=== PATIENT | male | born 1965 | race American Indian/Alaskan Native ===

== ENCOUNTER 2017-01-10 19:47 | Inpatient (IN) | payer MEDICARE, OTHER ==
[2017-01-10 19:47] VITALS: BMI 22.8
[2017-01-10] MEDS ORDERED: Piperacill/Tazo 3.375gm in Dex 3.375 GM/50 ML BAG IVPB STA (19:56)
--- NOTE | 2017-01-10 20:04 | C.PDOC ---
History Of Present Illness 51 year old male with a Hx of end stage renal disease for which he is on hemodialysis for, and HTN brought to the ER via ALS for a complaint of lethargy and confusion. As per brother at bedside, patient sounded confused on the phone earlier today and states he was found in his apartment confused. Patient is febrile and tachypneic in the the ER; patient had hemodialysis yesterday as per brother. Limited Hx is provided, however, patient has not verbalized any physical complaints at this time. Time Seen by Provider: 01/10/17 19:49 Chief Complaint (Nursing): Altered Mental Status History Per: Patient History/Exam Limitations: None Onset/Duration Of Symptoms: Hrs Onset Of Symptoms: Cannot Confirm Onset Current Symptoms Are (Timing): Still Present Exacerbating Factor(s): Unknown Use Of Anticoag/Antiplatelets: No Speech Is: Normal Recent travel outside of the [place]: No Past Medical History Reviewed: Historical Data, Nursing Documentation, Vital Signs Vital Signs: Last Vital Signs Temp 101.6 F H 01/10/17 19:52 Pulse 129 H 01/10/17 19:52 Resp 60 H 01/10/17 19:52 BP 141/84 01/10/17 19:52 Pulse Ox 78 L 01/10/17 22:57 - Medical History PMH: Anemia, Arthritis, Asthma, COPD, Diabetes, Fractures (RIB, LEG, FOOT), HTN , Hypothyroidism, Pneumonia, End Stage Renal Disease (on dialysis M/W/F.), Chronic Kidney Disease - [facility] Procedures ASSISTANCE WITH RESPIRATORY VENTILATION, >96 HRS, CPAP (08/15/15) ENDOSC POLYPECTOMY OF LG INTEST (02/03/13) MEASURE OF CARDIAC SAMPL & PRESSURE, R HEART, PERC APPROACH (08/15/15) PLAIN RADIOGRAPHY OF LEFT HEART USING OTHER CONTRAST (08/15/15) PLAIN RADIOGRAPHY OF MULT COR ART USING OTH CONTRAST (08/15/15) Family History: States: Unknown Family Hx - Social History Hx Tobacco Use: No Hx Alcohol Use: No Hx Substance Use: No - Immunization History Hx Tetanus Toxoid Vaccination: No Hx Influenza Vaccination: Yes (12/15/14) Hx Pneumococcal Vaccination: Yes (12/15/14) Review Of Systems Except As Marked, All Systems Reviewed And Found Negative. Constitutional: Positive for: Fever Cardiovascular: Negative for: Chest Pain Respiratory: Positive for: Other (Tachypneic). Negative for: Cough, Shortness of Breath Gastrointestinal: Negative for: Nausea, Vomiting, Abdominal Pain Genitourinary: Negative for: Dysuria, Hematuria Neurological: Positive for: Confusion Physical Exam - Physical Exam Appears: Non-toxic Skin: Normal Color, Warm, Dry Head: Atraumatic, Normacephalic Eye(s): bilateral: Normal Inspection, PERRL, EOMI Oral Mucosa: Moist Neck: Normal, Supple Chest: Symmetrical, No Tenderness Cardiovascular: Rhythm Regular, No Murmur Respiratory: No Rales, No Rhonchi, No Wheezing, Other (Bilateral mild course breath sounds) Gastrointestinal/Abdominal: Soft, No Tenderness Neurological/Psych: Other (Oriented x2) ED Course And Treatment - Laboratory Results Result Diagrams: 01/10/17 20:13 01/10/17 20:13 ECG: Interpreted By Me, Viewed By Me ECG Rhythm: Sinus Tachycardia Interpretation Of EC O2 Sat by Pulse Oximetry: 78 Critical Care Time - Critical Care Note Total Time (in mins): 45 Documented critical care: time excludes all time spent performing seperately billable procedures. Medical Decision Making Medical Decision Making: r/o sepsis/pna/intrcranial pathology- labs imaging pending. pt tachpneia, with increased wob on arrival. placed on bipap Plan: * Blood work * EKG * CXR * Urinalysis * Piperacill * Vancocin 1100: pt seen by icu. accepted to icu. cxr shows b/l infiltrates. (+)trop, no chest pain, suspect type 2. dr carranza accepts Disposition - Disposition Disposition: HOSPITALIZED Disposition Time: 23:03 Condition: CRITICAL - Clinical Impression Clinical Impression: NSTEMI (non-ST elevated myocardial infarction), Sepsis, Pneumonia - Scribe Statement The provider has reviewed the documentation as recorded by the Scribe Donte Lang All medical record entries made by the Scribe were at my direction and personally dictated by me. I have reviewed the chart and agree that the record accurately reflects my personal performance of the history, physical exam, medical decision making, and the department course for this patient. I have also personally directed, reviewed, and agree with the discharge instructions and disposition. Decision To Admit - . Bed Request Type: ICU Admitting Physician: Jim Carranza Patient Diagnosis: NSTEMI (non-ST elevated myocardial infarction), Sepsis, Pneumonia
[2017-01-10 20:19] LABS: BASO # 0.1 K/uL (0.0-0.2); BASO % 0.6 % (0.0-2.0); EOS % 0.1 % (0.0-4.0); HEMATOCRIT 27.5 % (35.0-51.0); LYMPH # 0.7 K/uL (1.0-4.3); LYMPH % 7.1 % (20.0-40.0); MEAN CELL VOLUME 84.8 fL (80.0-94.0); MEAN CORPUSCULAR HEMOGLOBIN 28.4 pg (27.0-31.0); MEAN CORPUSCULAR HGB CONC 33.5 g/dL (33.0-37.0); MEAN PLATELET VOLUME 6.6 fL (7.2-11.7); MONO # 0.9 K/uL (0.0-0.8); MONO % 9.4 % (0.0-10.0); PLATELET COUNT 176 K/uL (130-400); RED CELL DISTRIBUTION WIDTH 16.2 % (11.5-14.5); WHITE BLOOD COUNT 9.3 K/uL (4.8-10.8)
[2017-01-10 20:28] LABS: INR 1.4
[2017-01-10 20:29] LABS: POTASSIUM 4.8 mmol/L (3.6-5.2)
[2017-01-10 20:30] LABS: VENOUS BLOOD GAS BASE EXCESS 6.2 mmol/L (0.0-2.0); VENOUS BLOOD GAS PCO2 42 mmHg (40-60); VENOUS BLOOD PH 7.47 (7.32-7.43)
[2017-01-10 20:31] LABS: ALB/GLOB RATIO 1.3 (1.0-2.1); BILIRUBIN,TOTAL 1.2 mg/dL (0.2-1.3); TOTAL PROTEIN 7.4 g/dL (6.3-8.3)
[2017-01-10] MEDS ORDERED: Vancomycin 1 GM 1 GM/250 ML BAG IVPB ONE (20:32)
[2017-01-10] MEDS ORDERED: Piperacillin/Tazobact 3.375 gm 100 ML IVPB ONE (20:33)
[2017-01-10 20:48] LABS: TROPONIN I 0.548 ng/mL (0.00-0.120)
[2017-01-10] MEDS ORDERED: Sodium Chloride 0.9% 1,000 ML IV SCH (21:30)
[2017-01-10 22:14] LABS: NEUTROPHIL 83 % (50-75); TOTAL CELLS COUNTED 100
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
[2017-01-11] MEDS ORDERED: Sodium Chloride 0.9% 1,000 ML IV SCH (00:36)
[2017-01-11] MEDS: Albuterol-Ipratrop 3 mg / 0.5 (3 ml) UD INH SCH ×4 (01:56→20:23)
[2017-01-11 06:07] LABS: ABG ALLEN TEST POS; ARTERIAL BLOOD GAS MODE BiPAP; DRAW SITE RR; HHB 4.7 % (0.0-5.0); METHEMOGLOBIN 0.3 % (0.0-3.0)
[2017-01-11] MEDS: Piperacill/Tazo 2.25gm in Dex 2.25 GM/50 ML BAG IVPB SCH ×3 (06:14→22:07)
[2017-01-11 06:18] LABS: BASO # 0.1 K/uL (0.0-0.2); BASO % 0.7 % (0.0-2.0); EOS # 0.1 K/uL (0.0-0.7); EOS % 1.4 % (0.0-4.0); HEMATOCRIT 23.7 % (35.0-51.0); LYMPH # 1.2 K/uL (1.0-4.3); LYMPH % 16.2 % (20.0-40.0); MEAN CELL VOLUME 85.4 fL (80.0-94.0); MEAN CORPUSCULAR HEMOGLOBIN 28.6 pg (27.0-31.0); MEAN CORPUSCULAR HGB CONC 33.4 g/dL (33.0-37.0); MEAN PLATELET VOLUME 6.5 fL (7.2-11.7); MONO # 0.5 K/uL (0.0-0.8); MONO % 7.2 % (0.0-10.0); NRBC % 0.1 % (0.0-2.0); RED CELL DISTRIBUTION WIDTH 16.3 % (11.5-14.5); WHITE BLOOD COUNT 7.4 K/uL (4.8-10.8)
[2017-01-11 06:28] LABS: ALB/GLOB RATIO 1.3 (1.0-2.1); BILIRUBIN,TOTAL 1.3 mg/dL (0.2-1.3); CALCIUM 8.4 mg/dl (8.6-10.4); MAGNESIUM 2.4 mg/dL (1.6-2.3); POTASSIUM 5.2 mmol/L (3.6-5.2); TOTAL PROTEIN 6.7 g/dL (6.3-8.3)
--- NOTE | 2017-01-11 09:32 | RAD ---
PROCEDURE: CHEST RADIOGRAPH, 1 VIEW HISTORY: chest pain COMPARISON: Comparison made with prior chest radiograph 07/22/2016 FINDINGS: LUNGS: Diffuse bilateral infiltrates which could represent pneumonia. Clinical correlation recommended. Wall PLEURA: No pneumothorax or pleural fluid seen. CARDIOVASCULAR: Cardiomegaly. OSSEOUS STRUCTURES: No significant abnormalities. VISUALIZED UPPER ABDOMEN: Normal. OTHER FINDINGS: None. IMPRESSION: Diffuse bilateral infiltrates could represent the pneumonia. Note this report was placed in PA review folder followup.
--- NOTE | 2017-01-11 09:38 | RAD ---
HISTORY: pna COMPARISON: Comparison chest dated 01/10/2017 FINDINGS: LUNGS: Diffuse bilateral infiltrates left more significant than right again noted PLEURA: No significant pleural effusion identified, no pneumothorax apparent. CARDIOVASCULAR: Normal. OSSEOUS STRUCTURES: No significant abnormalities. VISUALIZED UPPER ABDOMEN: Normal. OTHER FINDINGS: None. IMPRESSION: Diffuse bilateral infiltrates left greater than right. .
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
--- NOTE | 2017-01-11 11:30 | CT ---
PROCEDURE: CT HEAD WITHOUT CONTRAST. HISTORY: ams COMPARISON: None available. TECHNIQUE: Axial computed tomography images were obtained through the head/brain without intravenous contrast. Radiation dose: Total exam DLP = 932.92 mGy-cm. This CT exam was performed using one or more of the following dose reduction techniques: Automated exposure control, adjustment of the mA and/or kV according to patient size, and/or use of iterative reconstruction technique. FINDINGS: HEMORRHAGE: No intracranial hemorrhage. BRAIN: There is a small elliptical shaped focus of CSF density within the left posterior temporal region that could represent either tiny chronic lacunar type infarct or dilated perivascular space. Questionable tiny lacunar type infarct right basal ganglia. Moderate central volume loss evidenced by slight disproportionate enlargement of the ventricles compared sulci. VENTRICLES: No obstructive hydrocephalus. CALVARIUM: No acute fractures PARANASAL SINUSES: Paranasal sinuses well-developed. No fluid levels seen to suggest acute sinusitis. Minor mucosal thickening seen within both maxillary antra left greater than right with some polypoid like mucosal changes in the left maxillary antrum. Polypoid like mucosal thickening also present within the sphenoid sinus. . Minimal mucosal thickening within the least 1 left-sided posterior ethmoid air cell. MASTOID AIR CELLS: Unremarkable as visualized. No inflammatory changes. OTHER FINDINGS: None. IMPRESSION: No acute intracranial hemorrhage. Dilated perivascular space or small elliptical shaped lacunar type infarct left basal ganglia. Questionable tiny right basal ganglia lacunar type infarct Moderate slightly more central volume loss as above. Note that the preliminary report provided by overnight Radiology service.
--- NOTE | 2017-01-11 14:11 | HP ---
HISTORY OF PRESENT ILLNESS: I have known the patient for many years from subacute behaviors in the hospitals to my office. He comes in for a altered mental status, lethargic, confused. He is a 51-year-old -[place] man who is confused found in the apartment I believe by his mother who sent him to the emergency room with a fever and short of breath. He did a dialysis a day before and he is not speaking well and he is a bit confused. He has a past medical history of end-stage renal disease with hemodialysis, anemia, arthritis, asthma, COPD, diabetes, fractures of ribs, leg and foot, hypertension, hypothyroidism, pneumonia, chronic kidney disease. He is altered mentally at this time. He does not smoke, does not drink, does not use drug. There is hypertension in the family. He has had endoscopic polypectomy of the large intestine, measure of cardiac sample and pressure of the right heart. He has had cardiac cath. REVIEW OF SYSTEMS: Presently, I am seeing him in the intensive care unit. He is on BiPAP. He is alert. He knows he is here. Denies any vision or hearing changes. No chest pain, no shortness of breath at this time on BiPAP. No abdominal pain, no nausea or vomiting. He can move his extremities, but he is weak. He is not the same. The patient is a little bit confused. I have to reorient him a little bit. He is comfortable, he is calm. He understands that we are trying to help him. PHYSICAL EXAMINATION VITAL SIGNS: He has 101.6 temp, 129 pulse, 60 respiratory rate, 141/84 blood pressure, 78% on O2 sat emergency room. He is doing better now. His vital signs now are 98.7 temp, 123/78 blood pressure, he is breathing in the 30s, which is 37 here, 92% on 50% BiPAP. HEAD: Atraumatic and normocephalic. His extraocular muscles are intact. His mouth is moist at this time. NECK: Supple. HEART: Regular rate. LUNGS: Decreased breath sounds bilaterally. Just not taking good effort. He is on BiPAP. ABDOMEN: Soft and nontender. Positive bowel sounds. No guarding. No apparent CVA tenderness. He is alert, comfortable. No edema in the leg. SKIN: For the most part is intact. No appreciative palpable lymphadenopathy. THYROID: Midline. LABORATORY DATA: Stool for occult blood was negative. He has 144 sodium, 5.2 potassium, BUN 72, creatinine 12.6. He needs to go for dialysis. It got worse than yesterday, GFR is 4, his sugar at this time was 105, calcium is 8.4, magnesium 2.4, total bilirubin is 1.3, AST is 21, ALT is 28, alkaline phosphatase 45, total creatine kinase is 156, his troponin is 0.548 and 0.806. He will be having an NSTEMI. I will call in Dr. Lillie Hair who has seen in the past to evaluate him, total protein 6.7, albumin is 3.7. INR is 1.4, his white is 7.4, his hemoglobin dropped to 9.2, 7.9. We will keep an eye on that. We will see how he does after dialysis. His hematocrit is 23.7, platelets are 148. We have a CAT scan of the head pending, chest x-ray pending. He was seen by the whiskey regauger. He is currently on aspirin, Coreg, Cozaar, DuoNeb, Norvasc, PhosLo, IV fluids, Dilaudid and Zosyn IV. He is here for change of mentation, pneumonia, sepsis, NSTEMI. If he is possibly starting to improve, we will see how we continue with the antibiotics, cardiology eval. We will check up labs tomorrow, order physical therapy, compression stockings. Jim Paulino DO MTDDesi
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
--- NOTE | 2017-01-11 18:11 | CP.CCUPN ---
CCU Subjective - Physician Review Events Since Last Encounter (Free Text): 01/11/17 18:08 Patient is still continues to be on BiPAP. The respiratory rate is in the 40s. Today he underwent hemodialysis, but post hemodialysis there is no significant improvement in the respiratory status. But patient is awake and responding able to complete a sentence. He is having thirstiness in the mouth, dry mouth noted. Cough present. No fever today. Saturation is stable. Vital signs reviewed No neck vein distention noted Wheezing and rales bilaterally noted CVS regular heart sound, no murmur noted Abdomen soft, nontender. 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 End-stage renal disease on dialysis. History a possible splenectomy. Patient received pneumococcal Vaccination the past as per the family. Underlying acute pneumonia, not improving with the dialysis yet. Most likely acute pneumonia. Organizing. Patient will need respiratory support. So far he is able to manage with the BiPAP. Continue the IV antibiotic. Infectious disease evaluation possibly Overall prognosis is guarded. CCU Objective - Vital Signs / Intake & Output Vital Signs (Last 4 hours): Vital Signs Temp Pulse Pulse Resp BP BP Pulse Ox 01/11/17 18:05 138/74 01/11/17 17:00 102 H 18 99 01/11/17 16:50 98 H 34 H 98 01/11/17 16:40 98 H 40 H 99 01/11/17 16:37 98 H 38 H 131/82 99 01/11/17 16:32 98 H 37 H 136/80 100 01/11/17 16:30 100 H 42 H 98 01/11/17 16:20 100 H 47 H 98 01/11/17 16:17 99 H 46 H 134/81 99 01/11/17 16:10 98.2 F 99 H 102 H 39 H 129/84 99 01/11/17 16:02 102 H 35 H 129/84 99 01/11/17 16:00 98.2 F 101 H 40 H 99 01/11/17 15:50 100 H 41 H 100 01/11/17 15:47 107 H 25 H 137/88 91 L 01/11/17 15:45 137/88 01/11/17 15:44 101 H 01/11/17 15:40 101 H 40 H 99 01/11/17 15:32 101 H 42 H 140/82 100 01/11/17 15:30 100 H 35 H 140/80 98 01/11/17 15:20 99 H 42 H 100 01/11/17 15:17 100 H 41 H 140/81 100 01/11/17 15:10 99 H 44 H 99 01/11/17 15:02 97 H 25 H 137/88 99 01/11/17 15:00 103 H 22 137/88 95 01/11/17 14:50 98 H 47 H 100 01/11/17 14:47 99 H 37 H 146/81 99 01/11/17 14:40 97 H 36 H 99 01/11/17 14:35 144/83 01/11/17 14:32 102 H 33 H 149/83 99 01/11/17 14:30 101 H 24 100 01/11/17 14:20 99 H 43 H 144/86 99 01/11/17 14:17 101 H 34 H 144/86 99 01/11/17 14:15 96 H 30 H 150/82 01/11/17 14:10 98 H 43 H 100 Intake and Output (Last 8hrs): Intake & Output 01/11/17 01/11/17 01/11/17 06:59 14:59 22:59 Intake Total 180 260 100 Balance 180 260 100 Weight 175 lb Intake: Intake, IV Amount 180 260 100 Right Forearm 180 260 100 Oral 0 - Medications Active Medications: Active Medications Generic Name Dose Route Start Last Admin Trade Name Freq PRN Reason Stop Dose Admin Albuterol/Ipratropium 3 ml 01/11/17 02:00 01/11/17 13:07 Duoneb 3 Mg/0.5 Mg (3 Ml) Ud INH 3 ml RQ6 [facility] Administration Amlodipine Besylate 5 mg 01/11/17 10:00 01/11/17 10:39 Norvasc PO 5 mg DAILY [facility] Administration Aspirin 81 mg 01/11/17 10:00 01/11/17 10:39 Aspirin Chewable PO 81 mg DAILY [facility] Administration Calcium Acetate 667 mg 01/11/17 08:00 01/11/17 17:21 Phoslo PO 667 mg TIDCC [facility] Administration Carvedilol 12.5 mg 01/11/17 10:00 01/11/17 18:05 Coreg PO Not Given BID [facility] Famotidine 20 mg 01/12/17 10:00 Pepcid IVP DAILY [facility] Heparin Sodium (Porcine) 5,000 units 01/11/17 22:00 Heparin SC Q8 [facility] Piperacillin Sod/Tazobactam Sod 2.25 gm in 50 mls @ 100 mls/hr 01/11/17 06:00 01/11/17 13:59 Zosyn 2.25 Gm Iv Premix IVPB Not Given Q8 [facility] Latanoprost 0.5 ml 01/11/17 22:00 Xalatan Opht OU HS [facility] Losartan Potassium 25 mg 01/11/17 10:00 01/11/17 10:39 Cozaar PO 25 mg DAILY [facility] Administration - Patient Studies Lab Studies: Lab Studies 01/11/17 01/11/17 01/11/17 Range/Units 17:48 11:09 08:04 WBC (4.8-10.8) K/uL RBC (4.40-5.90) Mil/uL Hgb (12.0-18.0) g/dL Hct (35.0-51.0) % MCV (80.0-94.0) fL MCH (27.0-31.0) pg MCHC (33.0-37.0) g/dL RDW (11.5-14.5) % Plt Count (130-400) K/uL MPV (7.2-11.7) fL Neut % (Auto) (50.0-75.0) % Lymph % (Auto) (20.0-40.0) % [place] % (Auto) (0.0-10.0) % Eos % (Auto) (0.0-4.0) % Baso % (Auto) (0.0-2.0) % Neut # (1.8-7.0) K/uL Lymph # (1.0-4.3) K/uL [place] # (0.0-0.8) K/uL Eos # (0.0-0.7) K/uL Baso # (0.0-0.2) K/uL Puncture Site pCO2 (35-45) mm/Hg pO2 (80-100) mm/Hg HCO3 (21-28) mmol/L ABG pH (7.35-7.45) ABG Total CO2 (22-28) mmol/L ABG O2 Saturation (95-98) % ABG Base Excess (-2.0-3.0) mmol/L ABG Hemoglobin (11.7-17.4) g/dL ABG Carboxyhemoglobin (0.5-1.5) % POC ABG HHb (Measured) (0.0-5.0) % ABG Methemoglobin (0.0-3.0) % [place] Test A-a O2 Difference mm/Hg Respiratory Index Hgb O2 Saturation (95.0-98.0) % Vent Mode FiO2 % Inspiratory BiPAP Expiratory BiPAP Sodium (132-148) mmol/L Potassium (3.6-5.2) mmol/L Chloride (98-107) mmol/L Carbon Dioxide (22-30) mmol/L Anion Gap (10-20) BUN (9-20) mg/dL Creatinine (0.8-1.5) MG/DL Est GFR ( Amer) Est GFR (Non-Af Amer) POC Glucose (mg/dL) 87 103 88 (65-110) mg/dL Random Glucose (75-110) mg/dL Calcium (8.6-10.4) mg/dl Magnesium (1.6-2.3) mg/dL Total Bilirubin (0.2-1.3) mg/dL AST (17-59) U/L ALT (21-72) U/L Alkaline Phosphatase (38-126) U/L Total Creatine Kinase (55-170) U/L CK-MB (Mass) (0.0-3.38) ng/mL Troponin I, Quant (0.00-0.120) ng/mL Total Protein (6.3-8.3) g/dL Albumin (3.5-5.0) g/dL Globulin (2.2-3.9) gm/dL Albumin/Globulin Ratio (1.0-2.1) 01/11/17 01/11/17 01/11/17 Range/Units 06:07 06:06 05:26 WBC 7.4 (4.8-10.8) K/uL RBC 2.77 L (4.40-5.90) Mil/uL Hgb 7.9 L (12.0-18.0) g/dL Hct 23.7 L (35.0-51.0) % MCV 85.4 (80.0-94.0) fL MCH 28.6 (27.0-31.0) pg MCHC 33.4 (33.0-37.0) g/dL RDW 16.3 H (11.5-14.5) % Plt Count 148 (130-400) K/uL MPV 6.5 L (7.2-11.7) fL Neut % (Auto) 74.5 (50.0-75.0) % Lymph % (Auto) 16.2 L (20.0-40.0) % [place] % (Auto) 7.2 (0.0-10.0) % Eos % (Auto) 1.4 (0.0-4.0) % Baso % (Auto) 0.7 (0.0-2.0) % Neut # 5.5 (1.8-7.0) K/uL Lymph # 1.2 (1.0-4.3) K/uL [place] # 0.5 (0.0-0.8) K/uL Eos # 0.1 (0.0-0.7) K/uL Baso # 0.1 (0.0-0.2) K/uL Puncture Site Rr pCO2 42 (35-45) mm/Hg pO2 65 L (80-100) mm/Hg HCO3 30.4 H (21-28) mmol/L ABG pH 7.48 H (7.35-7.45) ABG Total CO2 32.6 H (22-28) mmol/L ABG O2 Saturation 95.2 (95-98) % ABG Base Excess 7.1 H (-2.0-3.0) mmol/L ABG Hemoglobin 7.9 L (11.7-17.4) g/dL ABG Carboxyhemoglobin 2.0 H (0.5-1.5) % POC ABG HHb (Measured) 4.7 (0.0-5.0) % ABG Methemoglobin 0.3 (0.0-3.0) % [place] Test Pos A-a O2 Difference 239.0 mm/Hg Respiratory Index 3.7 Hgb O2 Saturation 93.0 L (95.0-98.0) % Vent Mode Bipap FiO2 50.0 % Inspiratory BiPAP 10 Expiratory BiPAP 5 Sodium 144 (132-148) mmol/L Potassium 5.2 (3.6-5.2) mmol/L Chloride 93 L (98-107) mmol/L Carbon Dioxide 28 (22-30) mmol/L Anion Gap 28 H (10-20) BUN 72 H (9-20) mg/dL Creatinine 12.6 H* (0.8-1.5) MG/DL Est GFR ( Amer) 5 Est GFR (Non-Af Amer) 4 POC Glucose (mg/dL) (65-110) mg/dL Random Glucose 105 (75-110) mg/dL Calcium 8.4 L (8.6-10.4) mg/dl Magnesium 2.4 H (1.6-2.3) mg/dL Total Bilirubin 1.3 (0.2-1.3) mg/dL AST 21 (17-59) U/L ALT 28 (21-72) U/L Alkaline Phosphatase 45 (38-126) U/L Total Creatine Kinase 166 (55-170) U/L CK-MB (Mass) 1.14 (0.0-3.38) ng/mL Troponin I, Quant 0.8060 H* (0.00-0.120) ng/mL Total Protein 6.7 (6.3-8.3) g/dL Albumin 3.7 (3.5-5.0) g/dL Globulin 3.0 (2.2-3.9) gm/dL Albumin/Globulin Ratio 1.3 (1.0-2.1) Laboratory Results - last 24 hr 01/11/17 01/11/17 01/11/17 05:26 06:06 06:07 WBC 7.4 RBC 2.77 L Hgb 7.9 L Hct 23.7 L MCV 85.4 MCH 28.6 MCHC 33.4 RDW 16.3 H Plt Count 148 MPV 6.5 L Neut % (Auto) 74.5 Lymph % (Auto) 16.2 L [place] % (Auto) 7.2 Eos % (Auto) 1.4 Baso % (Auto) 0.7 Neut # 5.5 Lymph # 1.2 [place] # 0.5 Eos # 0.1 Baso # 0.1 Puncture Site Rr pCO2 42 pO2 65 L HCO3 30.4 H ABG pH 7.48 H ABG Total CO2 32.6 H ABG O2 Saturation 95.2 ABG Base Excess 7.1 H ABG Hemoglobin 7.9 L ABG Carboxyhemoglobin 2.0 H POC ABG HHb (Measured) 4.7 ABG Methemoglobin 0.3 [place] Test Pos A-a O2 Difference 239.0 Respiratory Index 3.7 Hgb O2 Saturation 93.0 L Vent Mode Bipap FiO2 50.0 Inspiratory BiPAP 10 Expiratory BiPAP 5 Sodium 144 Potassium 5.2 Chloride 93 L Carbon Dioxide 28 Anion Gap 28 H BUN 72 H Creatinine 12.6 H* Est GFR ( Amer) 5 Est GFR (Non-Af Amer) 4 POC Glucose (mg/dL) Random Glucose 105 Calcium 8.4 L Magnesium 2.4 H Total Bilirubin 1.3 AST 21 ALT 28 Alkaline Phosphatase 45 Total Creatine Kinase 166 CK-MB (Mass) 1.14 Troponin I, Quant 0.8060 H* Total Protein 6.7 Albumin 3.7 Globulin 3.0 Albumin/Globulin Ratio 1.3 01/11/17 01/11/17 01/11/17 08:04 11:09 17:48 WBC RBC Hgb Hct MCV MCH MCHC RDW Plt Count MPV Neut % (Auto) Lymph % (Auto) [place] % (Auto) Eos % (Auto) Baso % (Auto) Neut # Lymph # [place] # Eos # Baso # Puncture Site pCO2 pO2 HCO3 ABG pH ABG Total CO2 ABG O2 Saturation ABG Base Excess ABG Hemoglobin ABG Carboxyhemoglobin POC ABG HHb (Measured) ABG Methemoglobin [place] Test A-a O2 Difference Respiratory Index Hgb O2 Saturation Vent Mode FiO2 Inspiratory BiPAP Expiratory BiPAP Sodium Potassium Chloride Carbon Dioxide Anion Gap BUN Creatinine Est GFR ( Amer) Est GFR (Non-Af Amer) POC Glucose (mg/dL) 88 103 87 Random Glucose Calcium Magnesium Total Bilirubin AST ALT Alkaline Phosphatase Total Creatine Kinase CK-MB (Mass) Troponin I, Quant Total Protein Albumin Globulin Albumin/Globulin Ratio Fingerstick Blood Sugar Results: 133 Critical Care Progress Note - Nutrition Nutrition: Nutrition Category Date Time Status NPO Diet [DIET] Diets 01/10/17 Breakfast Active
[2017-01-11 20:50] LABS: BASO % 0.6 % (0.0-2.0); EOS # 0.2 K/uL (0.0-0.7); HEMATOCRIT 22.2 % (35.0-51.0); LYMPH # 0.6 K/uL (1.0-4.3); LYMPH % 10.8 % (20.0-40.0); MEAN CELL VOLUME 85.3 fL (80.0-94.0); MEAN CORPUSCULAR HEMOGLOBIN 28.2 pg (27.0-31.0); MEAN CORPUSCULAR HGB CONC 33.1 g/dL (33.0-37.0); MEAN PLATELET VOLUME 6.7 fL (7.2-11.7); MONO # 0.4 K/uL (0.0-0.8); MONO % 6.4 % (0.0-10.0); RED CELL DISTRIBUTION WIDTH 16.2 % (11.5-14.5)
[2017-01-11 21:03] LABS: POTASSIUM 3.9 mmol/L (3.6-5.2)
[2017-01-11 21:05] LABS: ALB/GLOB RATIO 1.2 (1.0-2.1); BILIRUBIN,TOTAL 1.2 mg/dL (0.2-1.3); TOTAL PROTEIN 6.4 g/dL (6.3-8.3)
[2017-01-11 21:06] LABS: CALCIUM 8.1 mg/dl (8.6-10.4)
[2017-01-11] MEDS: Latanoprost 2.5 ml Opht Soln OU SCH (22:17)
[2017-01-12] MEDS: Albuterol-Ipratrop 3 mg / 0.5 (3 ml) UD INH SCH ×4 (01:26→19:16)
[2017-01-12] MEDS: Piperacill/Tazo 2.25gm in Dex 2.25 GM/50 ML BAG IVPB SCH ×3 (05:47→22:58)
[2017-01-12 06:51] LABS: HEMATOCRIT 25.7 % (35.0-51.0); MEAN CELL VOLUME 85.1 fL (80.0-94.0); MEAN CORPUSCULAR HEMOGLOBIN 28.3 pg (27.0-31.0); MEAN CORPUSCULAR HGB CONC 33.2 g/dL (33.0-37.0); MEAN PLATELET VOLUME 7.1 fL (7.2-11.7); RED CELL DISTRIBUTION WIDTH 16.2 % (11.5-14.5); WHITE BLOOD COUNT 6.8 K/uL (4.8-10.8)
[2017-01-12 07:02] LABS: ALB/GLOB RATIO 1.2 (1.0-2.1); BILIRUBIN,TOTAL 1.3 mg/dL (0.2-1.3); CALCIUM 9.3 mg/dl (8.6-10.4); MAGNESIUM 2.4 mg/dL (1.6-2.3); PHOSPHOROUS 6.1 mg/dL (2.5-4.5); POTASSIUM 4.6 mmol/L (3.6-5.2); TOTAL PROTEIN 7.4 g/dL (6.3-8.3)
--- NOTE | 2017-01-12 08:26 | CP.PCM.PN ---
Subjective - Date & Time of Evaluation Date of Evaluation: 01/12/17 Time of Evaluation: 08:00 - Subjective Subjective: patient has no dyspnea Objective - Vital Signs/Intake and Output Vital Signs (last 24 hours): Temp Pulse Resp BP Pulse Ox 98.0 F 100 H 14 152/95 H 100 01/12/17 04:00 01/12/17 07:01 01/12/17 06:00 01/12/17 05:37 01/12/17 06:00 Intake and Output: 01/12/17 01/12/17 06:59 18:59 Intake Total 100 Output Total 0 Balance 100 - Medications Medications: Current Medications Albuterol/Ipratropium (Duoneb 3 Mg/0.5 Mg (3 Ml) Ud) 3 ml INH RQ6 [facility] Last Admin: 01/12/17 07:01 Dose: 3 ml Amlodipine Besylate (Norvasc) 5 mg PO DAILY [facility] Last Admin: 01/11/17 10:39 Dose: 5 mg Aspirin (Aspirin Chewable) 81 mg PO DAILY [facility] Last Admin: 01/11/17 10:39 Dose: 81 mg Calcium Acetate (Phoslo) 667 mg PO TIDCC [facility] Last Admin: 01/11/17 17:21 Dose: 667 mg Carvedilol (Coreg) 12.5 mg PO BID [facility] Last Admin: 01/11/17 18:05 Dose: Not Given Famotidine (Pepcid) 20 mg IVP DAILY [facility] Heparin Sodium (Porcine) (Heparin) 5,000 units SC Q8 [facility] Last Admin: 01/12/17 05:48 Dose: 5,000 units Piperacillin Sod/Tazobactam Sod (Zosyn 2.25 Gm Iv Premix) 2.25 gm in 50 mls @ 100 mls/hr IVPB Q8 [facility] Last Admin: 01/12/17 05:47 Dose: 100 mls/hr Latanoprost (Xalatan Opht) 0.5 ml OU HS [facility] Last Admin: 01/11/17 22:17 Dose: 0.5 ml Losartan Potassium (Cozaar) 25 mg PO DAILY [facility] Last Admin: 01/11/17 10:39 Dose: 25 mg - Labs Labs: 01/12/17 06:20 01/12/17 06:20 PT 15.7 SECONDS (9.7-12.2) H 01/10/17 20:13 INR 1.4 01/10/17 20:13 APTT 34 SECONDS (21-34) 01/10/17 20:13 - Constitutional Appears: Non-toxic - Head Exam Head Exam: NORMAL INSPECTION - Eye Exam Eye Exam: Normal appearance - ENT Exam ENT Exam: Mucous Membranes Moist - Neck Exam Neck Exam: Full ROM - Respiratory Exam Respiratory Exam: Decreased Breath Sounds - Cardiovascular Exam Cardiovascular Exam: REGULAR RHYTHM - GI/Abdominal Exam GI & Abdominal Exam: Normal Bowel Sounds - Rectal Exam Rectal Exam: Deferred - Extremities Exam Extremities Exam: absent: Pedal Edema - Back Exam Back Exam: NORMAL INSPECTION - Neurological Exam Neurological Exam: Alert - Psychiatric Exam Psychiatric exam: Normal Affect - Skin Skin Exam: Normal Color Assessment and Plan (1) Pulmonary HTN Assessment & Plan: likely cause of patient's symptoms. repeat echocardiogram Status: Acute (2) NSTEMI (non-ST elevated myocardial infarction) Assessment & Plan: medical therapy. no CAD on cath one year ago. Likely elevated due to renal failure Status: Acute (3) Dyspnea Status: Acute (4) HTN (hypertension) Assessment & Plan: blood pressure control. Status: Acute
--- NOTE | 2017-01-12 08:38 | RAD ---
HISTORY: CHF COMPARISON: 01/11/2017 and 7:09 a.m. FINDINGS: LUNGS: There is no significant interval change in diffuse haziness in both lungs with interstitial thickening. PLEURA: No significant pleural effusion identified, no pneumothorax apparent. CARDIOVASCULAR: There is mild cardiomegaly. OSSEOUS STRUCTURES: No significant abnormalities. VISUALIZED UPPER ABDOMEN: Normal. OTHER FINDINGS: None. IMPRESSION: No significant interval change in multifocal pneumonia versus congestive heart failure with pulmonary edema.
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
--- NOTE | 2017-01-12 10:57 | CP.CCUPN ---
CCU Subjective - Physician Review Subjective (Free Text): 01/12/17 10:50 Patient was seen and examined at bedside in the AM. Patient is alert and oriented. Patient states his breathing has improved and has no further complaints at this time. CCU Objective - Vital Signs / Intake & Output Vital Signs (Last 4 hours): Vital Signs Pulse BP 01/12/17 09:32 148/82 01/12/17 07:01 100 H Intake and Output (Last 8hrs): Intake & Output 01/11/17 01/12/17 01/12/17 22:59 06:59 14:59 Intake Total 150 50 Output Total 0 0 Balance 150 50 Weight 175 lb Intake: Intake, IV Amount 150 50 Right Forearm 150 50 Oral 0 0 Output: Urine 0 0 Urine, Voided 0 0 Stool 0 0 - Physical Exam Head: Positive for: Atraumatic, Normocephalic Pupils: Positive for: PERRL Extroacular Muscles: Positive for: EOMI Conjunctiva: Positive for: Normal Mouth: Positive for: Moist Mucous Membranes Respiratory/Chest: Positive for: Clear to Auscultation, Good Air Exchange. Negative for: Respiratory Distress, Wheezes, Rales Cardiovascular: Positive for: Regular Rate and Rhythm, Normal S1, S2 Abdomen: Positive for: Normal Bowel Sounds. Negative for: Tenderness, Distention Upper Extremity: Positive for: Normal Inspection. Negative for: Edema Lower Extremity: Positive for: Normal Inspection. Negative for: Edema, CALF TENDERNESS Neurological: Positive for: GCS=15, Speech Normal Skin: Positive for: Warm, Dry Psychiatric: Positive for: Alert, Oriented x 3, Normal Insight - Medications Active Medications: Active Medications Generic Name Dose Route Start Last Admin Trade Name Esequielq PRN Reason Stop Dose Admin Albuterol/Ipratropium 3 ml 01/11/17 02:00 01/12/17 07:01 Duoneb 3 Mg/0.5 Mg (3 Ml) Ud INH 3 ml RQ6 [facility] Administration Amlodipine Besylate 5 mg 01/11/17 10:00 01/12/17 09:33 Norvasc PO 5 mg DAILY [facility] Administration Aspirin 81 mg 01/11/17 10:00 01/12/17 09:33 Aspirin Chewable PO 81 mg DAILY [facility] Administration Calcium Acetate 667 mg 01/11/17 08:00 01/12/17 09:31 Phoslo PO 667 mg TIDCC [facility] Administration Carvedilol 12.5 mg 01/11/17 10:00 01/12/17 09:32 Coreg PO 12.5 mg BID [facility] Administration Famotidine 20 mg 01/12/17 10:00 01/12/17 09:31 Pepcid IVP 20 mg DAILY [facility] Administration Heparin Sodium (Porcine) 5,000 units 01/11/17 22:00 01/12/17 05:48 Heparin SC 5,000 units Q8 [facility] Administration Piperacillin Sod/Tazobactam Sod 2.25 gm in 50 mls @ 100 mls/hr 01/11/17 06:00 01/12/17 05:47 Zosyn 2.25 Gm Iv Premix IVPB 100 mls/hr Q8 [facility] Administration Insulin Human Regular 0 unit 01/12/17 11:30 Novolin R SC ACHS [facility] Protocol Latanoprost 0.5 ml 01/11/17 22:00 01/11/17 22:17 Xalatan Opht OU 0.5 ml HS [facility] Administration Losartan Potassium 25 mg 01/11/17 10:00 01/12/17 09:31 Cozaar PO 25 mg DAILY [facility] Administration - Patient Studies Lab Studies: Lab Studies 01/12/17 01/12/17 01/12/17 Range/Units 07:17 06:20 06:20 WBC 6.8 (4.8-10.8) K/uL RBC 3.01 L (4.40-5.90) Mil/uL Hgb 8.5 L (12.0-18.0) g/dL Hct 25.7 L (35.0-51.0) % MCV 85.1 (80.0-94.0) fL MCH 28.3 (27.0-31.0) pg MCHC 33.2 (33.0-37.0) g/dL RDW 16.2 H (11.5-14.5) % Plt Count 175 (130-400) K/uL MPV 7.1 L (7.2-11.7) fL Neut % (Auto) (50.0-75.0) % Lymph % (Auto) (20.0-40.0) % [place] % (Auto) (0.0-10.0) % Eos % (Auto) (0.0-4.0) % Baso % (Auto) (0.0-2.0) % Neut # (1.8-7.0) K/uL Lymph # (1.0-4.3) K/uL [place] # (0.0-0.8) K/uL Eos # (0.0-0.7) K/uL Baso # (0.0-0.2) K/uL Sodium 144 (132-148) mmol/L Potassium 4.6 (3.6-5.2) mmol/L Chloride 94 L (98-107) mmol/L Carbon Dioxide 29 (22-30) mmol/L Anion Gap 26 H (10-20) BUN 57 H (9-20) mg/dL Creatinine 11.0 H* D (0.8-1.5) MG/DL Est GFR ( Amer) 6 Est GFR (Non-Af Amer) 5 POC Glucose (mg/dL) 72 (65-110) mg/dL Random Glucose 81 (75-110) mg/dL Calcium 9.3 (8.6-10.4) mg/dl Phosphorus 6.1 H (2.5-4.5) mg/dL Magnesium 2.4 H (1.6-2.3) mg/dL Total Bilirubin 1.3 (0.2-1.3) mg/dL AST 21 (17-59) U/L ALT 25 (21-72) U/L Alkaline Phosphatase 51 (38-126) U/L Lactate Dehydrogenase (313-618) U/L Total Protein 7.4 (6.3-8.3) g/dL Albumin 4.0 (3.5-5.0) g/dL Globulin 3.4 (2.2-3.9) gm/dL Albumin/Globulin Ratio 1.2 (1.0-2.1) Procalcitonin (0.19-0.49) NG/ML HIV 1&2 Antibody Screen (NEGATIVE) 01/11/17 01/11/17 01/11/17 Range/Units 20:43 20:43 20:43 WBC (4.8-10.8) K/uL RBC (4.40-5.90) Mil/uL Hgb (12.0-18.0) g/dL Hct (35.0-51.0) % MCV (80.0-94.0) fL MCH (27.0-31.0) pg MCHC (33.0-37.0) g/dL RDW (11.5-14.5) % Plt Count (130-400) K/uL MPV (7.2-11.7) fL Neut % (Auto) (50.0-75.0) % Lymph % (Auto) (20.0-40.0) % [place] % (Auto) (0.0-10.0) % Eos % (Auto) (0.0-4.0) % Baso % (Auto) (0.0-2.0) % Neut # (1.8-7.0) K/uL Lymph # (1.0-4.3) K/uL [place] # (0.0-0.8) K/uL Eos # (0.0-0.7) K/uL Baso # (0.0-0.2) K/uL Sodium 143 (132-148) mmol/L Potassium 3.9 (3.6-5.2) mmol/L Chloride 100 (98-107) mmol/L Carbon Dioxide 25 (22-30) mmol/L Anion Gap 22 H (10-20) BUN 42 H (9-20) mg/dL Creatinine 8.1 H* D (0.8-1.5) MG/DL Est GFR ( Amer) 8 Est GFR (Non-Af Amer) 7 POC Glucose (mg/dL) (65-110) mg/dL Random Glucose 73 L (75-110) mg/dL Calcium 8.1 L (8.6-10.4) mg/dl Phosphorus (2.5-4.5) mg/dL Magnesium (1.6-2.3) mg/dL Total Bilirubin 1.2 (0.2-1.3) mg/dL AST 21 (17-59) U/L ALT 24 (21-72) U/L Alkaline Phosphatase 45 (38-126) U/L Lactate Dehydrogenase 531 (313-618) U/L Total Protein 6.4 (6.3-8.3) g/dL Albumin 3.5 (3.5-5.0) g/dL Globulin 3.0 (2.2-3.9) gm/dL Albumin/Globulin Ratio 1.2 (1.0-2.1) Procalcitonin (0.19-0.49) NG/ML HIV 1&2 Antibody Screen Negative (NEGATIVE) 01/11/17 01/11/17 01/11/17 Range/Units 20:43 17:55 17:48 WBC 6.0 (4.8-10.8) K/uL RBC 2.60 L (4.40-5.90) Mil/uL Hgb 7.4 L (12.0-18.0) g/dL Hct 22.2 L (35.0-51.0) % MCV 85.3 (80.0-94.0) fL MCH 28.2 (27.0-31.0) pg MCHC 33.1 (33.0-37.0) g/dL RDW 16.2 H (11.5-14.5) % Plt Count 135 (130-400) K/uL MPV 6.7 L (7.2-11.7) fL Neut % (Auto) 78.2 H (50.0-75.0) % Lymph % (Auto) 10.8 L (20.0-40.0) % [place] % (Auto) 6.4 (0.0-10.0) % Eos % (Auto) 4.0 (0.0-4.0) % Baso % (Auto) 0.6 (0.0-2.0) % Neut # 4.7 (1.8-7.0) K/uL Lymph # 0.6 L (1.0-4.3) K/uL [place] # 0.4 (0.0-0.8) K/uL Eos # 0.2 (0.0-0.7) K/uL Baso # 0.0 (0.0-0.2) K/uL Sodium (132-148) mmol/L Potassium (3.6-5.2) mmol/L Chloride (98-107) mmol/L Carbon Dioxide (22-30) mmol/L Anion Gap (10-20) BUN (9-20) mg/dL Creatinine (0.8-1.5) MG/DL Est GFR ( Amer) Est GFR (Non-Af Amer) POC Glucose (mg/dL) 87 (65-110) mg/dL Random Glucose (75-110) mg/dL Calcium (8.6-10.4) mg/dl Phosphorus (2.5-4.5) mg/dL Magnesium (1.6-2.3) mg/dL Total Bilirubin (0.2-1.3) mg/dL AST (17-59) U/L ALT (21-72) U/L Alkaline Phosphatase (38-126) U/L Lactate Dehydrogenase (313-618) U/L Total Protein (6.3-8.3) g/dL Albumin (3.5-5.0) g/dL Globulin (2.2-3.9) gm/dL Albumin/Globulin Ratio (1.0-2.1) Procalcitonin 4.95 H (0.19-0.49) NG/ML HIV 1&2 Antibody Screen (NEGATIVE) 01/11/17 Range/Units 11:09 WBC (4.8-10.8) K/uL RBC (4.40-5.90) Mil/uL Hgb (12.0-18.0) g/dL Hct (35.0-51.0) % MCV (80.0-94.0) fL MCH (27.0-31.0) pg MCHC (33.0-37.0) g/dL RDW (11.5-14.5) % Plt Count (130-400) K/uL MPV (7.2-11.7) fL Neut % (Auto) (50.0-75.0) % Lymph % (Auto) (20.0-40.0) % [place] % (Auto) (0.0-10.0) % Eos % (Auto) (0.0-4.0) % Baso % (Auto) (0.0-2.0) % Neut # (1.8-7.0) K/uL Lymph # (1.0-4.3) K/uL [place] # (0.0-0.8) K/uL Eos # (0.0-0.7) K/uL Baso # (0.0-0.2) K/uL Sodium (132-148) mmol/L Potassium (3.6-5.2) mmol/L Chloride (98-107) mmol/L Carbon Dioxide (22-30) mmol/L Anion Gap (10-20) BUN (9-20) mg/dL Creatinine (0.8-1.5) MG/DL Est GFR ( Amer) Est GFR (Non-Af Amer) POC Glucose (mg/dL) 103 (65-110) mg/dL Random Glucose (75-110) mg/dL Calcium (8.6-10.4) mg/dl Phosphorus (2.5-4.5) mg/dL Magnesium (1.6-2.3) mg/dL Total Bilirubin (0.2-1.3) mg/dL AST (17-59) U/L ALT (21-72) U/L Alkaline Phosphatase (38-126) U/L Lactate Dehydrogenase (313-618) U/L Total Protein (6.3-8.3) g/dL Albumin (3.5-5.0) g/dL Globulin (2.2-3.9) gm/dL Albumin/Globulin Ratio (1.0-2.1) Procalcitonin (0.19-0.49) NG/ML HIV 1&2 Antibody Screen (NEGATIVE) Laboratory Results - last 24 hr 01/11/17 01/11/17 01/11/17 11:09 17:48 17:55 WBC RBC Hgb Hct MCV MCH MCHC RDW Plt Count MPV Neut % (Auto) Lymph % (Auto) [place] % (Auto) Eos % (Auto) Baso % (Auto) Neut # Lymph # [place] # Eos # Baso # Sodium Potassium Chloride Carbon Dioxide Anion Gap BUN Creatinine Est GFR ( Amer) Est GFR (Non-Af Amer) POC Glucose (mg/dL) 103 87 Random Glucose Calcium Phosphorus Magnesium Total Bilirubin AST ALT Alkaline Phosphatase Lactate Dehydrogenase Total Protein Albumin Globulin Albumin/Globulin Ratio Procalcitonin 4.95 H HIV 1&2 Antibody Screen 01/11/17 01/11/17 01/11/17 20:43 20:43 20:43 WBC 6.0 RBC 2.60 L Hgb 7.4 L Hct 22.2 L MCV 85.3 MCH 28.2 MCHC 33.1 RDW 16.2 H Plt Count 135 MPV 6.7 L Neut % (Auto) 78.2 H Lymph % (Auto) 10.8 L [place] % (Auto) 6.4 Eos % (Auto) 4.0 Baso % (Auto) 0.6 Neut # 4.7 Lymph # 0.6 L [place] # 0.4 Eos # 0.2 Baso # 0.0 Sodium 143 Potassium 3.9 Chloride 100 Carbon Dioxide 25 Anion Gap 22 H BUN 42 H Creatinine 8.1 H* D Est GFR ( Amer) 8 Est GFR (Non-Af Amer) 7 POC Glucose (mg/dL) Random Glucose 73 L Calcium 8.1 L Phosphorus Magnesium Total Bilirubin 1.2 AST 21 ALT 24 Alkaline Phosphatase 45 Lactate Dehydrogenase 531 Total Protein 6.4 Albumin 3.5 Globulin 3.0 Albumin/Globulin Ratio 1.2 Procalcitonin HIV 1&2 Antibody Screen 01/11/17 01/12/17 01/12/17 20:43 06:20 06:20 WBC 6.8 RBC 3.01 L Hgb 8.5 L Hct 25.7 L MCV 85.1 MCH 28.3 MCHC 33.2 RDW 16.2 H Plt Count 175 MPV 7.1 L Neut % (Auto) Lymph % (Auto) [place] % (Auto) Eos % (Auto) Baso % (Auto) Neut # Lymph # [place] # Eos # Baso # Sodium 144 Potassium 4.6 Chloride 94 L Carbon Dioxide 29 Anion Gap 26 H BUN 57 H Creatinine 11.0 H* D Est GFR ( Amer) 6 Est GFR (Non-Af Amer) 5 POC Glucose (mg/dL) Random Glucose 81 Calcium 9.3 Phosphorus 6.1 H Magnesium 2.4 H Total Bilirubin 1.3 AST 21 ALT 25 Alkaline Phosphatase 51 Lactate Dehydrogenase Total Protein 7.4 Albumin 4.0 Globulin 3.4 Albumin/Globulin Ratio 1.2 Procalcitonin HIV 1&2 Antibody Screen Negative 01/12/17 07:17 WBC RBC Hgb Hct MCV MCH MCHC RDW Plt Count MPV Neut % (Auto) Lymph % (Auto) [place] % (Auto) Eos % (Auto) Baso % (Auto) Neut # Lymph # [place] # Eos # Baso # Sodium Potassium Chloride Carbon Dioxide Anion Gap BUN Creatinine Est GFR ( Amer) Est GFR (Non-Af Amer) POC Glucose (mg/dL) 72 Random Glucose Calcium Phosphorus Magnesium Total Bilirubin AST ALT Alkaline Phosphatase Lactate Dehydrogenase Total Protein Albumin Globulin Albumin/Globulin Ratio Procalcitonin HIV 1&2 Antibody Screen Fingerstick Blood Sugar Results: 133 Review of Systems - Constitutional Constitutional: absent: Fever - Cardiovascular Cardiovascular: absent: Chest Pain, Dyspnea - Respiratory Respiratory: absent: Dyspnea - Gastrointestinal Gastrointestinal: absent: Constipation, Diarrhea, Nausea, Vomiting - Genitourinary Genitourinary: absent: Dysuria - Neurological Neurological: absent: Headaches Critical Care Progress Note - Nutrition Nutrition: Nutrition Category Date Time Status Renal Diet [DIET] Diets 01/12/17 Breakfast Active Assessment/Plan (1) Pneumonia Assessment and plan: 51-year-old male with history of diabetes hypertension end-stage renal disease on dialysis. Neuro: Alert and Oriented x3 Pulm: f/u CT of the Chest w/o contrast to r/o Pneumonia Started on Venti Mask 01/12 CV: Cardio Consult: Dr. Hair --> help appreciated Heme: No acute issues GI: Renal Diet Renal: Dialysis Nephrology Consult: Dr. león --> help appreciated ID: Blood culture: preliminary shows no growth Zosyn started 01/11 Endo: Diabetes Accuchecks/Insulin Sliding Scale DVT proph: SCDs, heparin subcutaneous GI Proph: Pepcid 20mg IVP Daily Code Status: full code Case discussed with Dr. Syeda Akers PGY-1 Current Visit: Yes Status: Acute
[2017-01-12] MEDS: (Novolin R) Insulin Human Regular 100 units/ml vial SC SCH ×3 (11:23→22:57)
--- NOTE | 2017-01-12 11:39 | CP.PCM.PN ---
Subjective - Date & Time of Evaluation Date of Evaluation: 01/12/17 Time of Evaluation: 11:36 - Subjective Subjective: Much improved post dialysis 01/11 Afebrile now Less cough, no CPs, no sputum production now No n, v, d, HAs Objective - Vital Signs/Intake and Output Vital Signs (last 24 hours): Temp Pulse Resp BP Pulse Ox 98.0 F 100 H 14 148/82 100 01/12/17 04:00 01/12/17 07:01 01/12/17 06:00 01/12/17 09:32 01/12/17 06:00 Intake and Output: 01/12/17 01/12/17 06:59 18:59 Intake Total 100 Output Total 0 Balance 100 - Medications Medications: Current Medications Albuterol/Ipratropium (Duoneb 3 Mg/0.5 Mg (3 Ml) Ud) 3 ml INH RQ6 [facility] Last Admin: 01/12/17 07:01 Dose: 3 ml Amlodipine Besylate (Norvasc) 5 mg PO DAILY [facility] Last Admin: 01/12/17 09:33 Dose: 5 mg Aspirin (Aspirin Chewable) 81 mg PO DAILY [facility] Last Admin: 01/12/17 09:33 Dose: 81 mg Calcium Acetate (Phoslo) 667 mg PO TIDCC [facility] Last Admin: 01/12/17 09:31 Dose: 667 mg Carvedilol (Coreg) 12.5 mg PO BID [facility] Last Admin: 01/12/17 09:32 Dose: 12.5 mg Famotidine (Pepcid) 20 mg IVP DAILY [facility] Last Admin: 01/12/17 09:31 Dose: 20 mg Heparin Sodium (Porcine) (Heparin) 5,000 units SC Q8 [facility] Last Admin: 01/12/17 05:48 Dose: 5,000 units Piperacillin Sod/Tazobactam Sod (Zosyn 2.25 Gm Iv Premix) 2.25 gm in 50 mls @ 100 mls/hr IVPB Q8 [facility] Last Admin: 01/12/17 05:47 Dose: 100 mls/hr Insulin Human Regular (Novolin R) 0 unit SC ACHS [facility] PRN Reason: Protocol Last Admin: 01/12/17 11:23 Dose: Not Given Latanoprost (Xalatan Opht) 0.5 ml OU HS [facility] Last Admin: 01/11/17 22:17 Dose: 0.5 ml Losartan Potassium (Cozaar) 25 mg PO DAILY [facility] Last Admin: 01/12/17 09:31 Dose: 25 mg - Labs Labs: 01/12/17 06:20 01/12/17 06:20 PT 15.7 SECONDS (9.7-12.2) H 01/10/17 20:13 INR 1.4 01/10/17 20:13 APTT 34 SECONDS (21-34) 01/10/17 20:13 - Constitutional Appears: No Acute Distress, Chronically Ill - Head Exam Head Exam: ATRAUMATIC, NORMAL INSPECTION - Eye Exam Eye Exam: EOMI, Normal appearance - Neck Exam Neck Exam: Normal Inspection. absent: Tenderness - Respiratory Exam Respiratory Exam: Rhonchi, NORMAL BREATHING PATTERN - Cardiovascular Exam Cardiovascular Exam: REGULAR RHYTHM, +S1 - GI/Abdominal Exam GI & Abdominal Exam: Soft. absent: Tenderness - Extremities Exam Extremities Exam: Normal Inspection. absent: Tenderness - Neurological Exam Neurological Exam: Alert, CN II-XII Intact - Skin Skin Exam: Dry, Warm Assessment and Plan (1) Fluid overload Status: Acute (2) HTN (hypertension) Status: Acute (3) Pneumonia Status: Acute (4) CHF (congestive heart failure) Status: Acute (5) Chronic renal allograft nephropathy Status: Acute (6) Diabetes mellitus type 2 in nonobese Status: Acute (7) ESRD (end stage renal disease) Status: Acute - Assessment and Plan (Free Text) Plan: Will repeat dialysis as patient much improved post dialysis 01/11 IV ABs Pulmonary follow up
--- NOTE | 2017-01-12 13:01 | PN ---
DATE OF SERVICE: 01/12/2017 SUBJECTIVE: I know Shanna very well. He is sitting in the ICU at [facility]. He has got the BiPAP on. He cannot remove the BiPAP as he gets very short of breath and his oxygen saturation drops to 87%, and he cannot have time to eat. He is on IV fluids. He is on multiple medications. MEDICATIONS: He is on aspirin, Coreg, Cozaar, DuoNeb, heparin, Norvasc, Pepcid, PhosLo, , and Zosyn IV. PHYSICAL EXAMINATION: VITAL SIGNS: Temperature 98, pulse 101, blood pressure 146/87, respiratory rate 29 to 41, and 97% saturation on BiPAP, drops to 87% when he takes off the BiPAP and he cannot eat or do anything at that time. GENERAL: He is alert, more aware, and more appropriate. He does not have enough time to eat because if he takes the BiPAP off, he gets short of breath. HEENT: Head is atraumatic and normocephalic. HEART: Regular rate. LUNGS: Decreased breath sounds bilaterally. ABDOMEN: Soft. EXTREMITIES: No edema. He had dialysis which is good, might need to have another one. LABORATORY DATA: He has a 6 white count, his hemoglobin dropped to 7.4 as per his baseline, might be transfused in dialysis, 22.2 hematocrit, and 135 platelets. He has 142 sodium, potassium 3.9, BUN down to 42, and creatinine down to 8.1 after dialysis which is better than when he came in. His GFR is up to 7, sugar is 73, calcium is 8.1, total bilirubin is 1.2, AST is 21, ALT is 24, alkaline phosphatase is 45, and total protein is 6.4. Stool for occult blood is negative. HIV is negative. ASSESSMENT AND PLAN: He is being seen by the protection mgr for somnolence, chemical process engineer, and renal doctor. I called in Dr. Patel, pharmacy resource tech, who have seen him in the past. We will check his labs tomorrow. Continue with aggressive treatment and care. Hopefully, he will improve. This is a progress note on Shanna Rodrigez who has got pneumonia, sepsis, non-ST elevation myocardial infarction, and change in mentation. Jim Paulino DO [facility] # [id number] [place]
--- NOTE | 2017-01-12 15:33 | CT ---
CT chest without IV contrast Indication: Pneumonia/CHF Technique: Contiguous axial images were obtained through the chest without intravenous contrast enhancement. Sagittal and coronal reconstructions were generated and reviewed. This CT exam was performed using 1 or more of the falling dose reduction techniques: Automated exposure control, adjustment of the MAA and/or kV according to patient size, and/or use of iterative reconstruction technique. Radiation dose (DLP): 510.04 MGy-cm. Comparison: None available Findings: Visualized portions of the inferior thyroid gland heterogeneous additionally, there is marked abnormal enlargement and substernal extension of the left lower pole thyroid gland. The enhanced mediastinal and hilar vascular structures appear grossly unremarkable. Cardiomegaly. Prevascular and mediastinal adenopathy measuring up to 1.5 cm in short axis (pretracheal). Please note that lack of IV contrast limits evaluation for adenopathy, in particular hilar adenopathy. Reticulo-interstitial infiltrate, ground-glass opacities, and patchy distribution of airspace opacities, possibly related to atypical infection or edema. Small bilateral pleural effusions and associated compressive consolidations. No pneumothorax. Limited visualization of the noncontrast upper abdomen demonstrates 14 mm hypodensity within the right hepatic lobe, indeterminate. Partially imaged atrophic bilateral kidneys with partially imaged low-density lesions (possibly cysts). No acute osseous abnormality is detected. Bilateral gynecomastia. Impression: Reticulo-interstitial infiltrates, ground-glass opacities, and patchy distribution of airspace opacities, possibly related to atypical infection or edema. Small bilateral pleural effusions and associated compressive consolidations. Recommend follow-up to complete resolution. Visualized portions of the inferior thyroid gland heterogeneous additionally, there is marked abnormal enlargement and substernal extension of the left lower pole thyroid gland. Recommend further evaluation with dedicated thyroid ultrasound. Prevascular and mediastinal adenopathy measuring up to 1.5 cm in short axis (pretracheal). Please note that lack of IV contrast limits evaluation for adenopathy, in particular hilar adenopathy. Cardiomegaly. 14 mm right hepatic lobe hypodensity, indeterminate. Partially imaged bilateral atrophic kidneys with partially imaged low-density lesions possibly reflecting cysts.
[2017-01-12] MEDS: Latanoprost 2.5 ml Opht Soln OU SCH (22:58)
[2017-01-13] MEDS: Albuterol-Ipratrop 3 mg / 0.5 (3 ml) UD INH SCH ×4 (01:26→19:33)
[2017-01-13] MEDS: Piperacill/Tazo 2.25gm in Dex 2.25 GM/50 ML BAG IVPB SCH ×3 (06:10→22:40)
[2017-01-13 06:32] LABS: HEMATOCRIT 26.5 % (35.0-51.0); MEAN CELL VOLUME 84.7 fL (80.0-94.0); MEAN PLATELET VOLUME 6.7 fL (7.2-11.7); RED CELL DISTRIBUTION WIDTH 15.8 % (11.5-14.5); WHITE BLOOD COUNT 5.1 K/uL (4.8-10.8)
[2017-01-13 06:52] LABS: ALB/GLOB RATIO 1.1 (1.0-2.1); BILIRUBIN,TOTAL 1.2 mg/dL (0.2-1.3); CALCIUM 9.6 mg/dl (8.6-10.4); MAGNESIUM 2.4 mg/dL (1.6-2.3); PHOSPHOROUS 5.5 mg/dL (2.5-4.5); POTASSIUM 4.5 mmol/L (3.6-5.2); TOTAL PROTEIN 7.5 g/dL (6.3-8.3)
[2017-01-13] MEDS: (Novolin R) Insulin Human Regular 100 units/ml vial SC SCH ×4 (07:30→22:41)
--- NOTE | 2017-01-13 07:31 | CARD ---
APPROVED REPORT EXAM: Two-dimensional and M-mode echocardiogram with Doppler and color Doppler. Other Information Quality : GoodRhythm : NSR INDICATION Pulmonary Hypertention Congestive Heart Failure Non STEMI SEPSIS; PNEUMONIA; ESRD RISK FACTORS Diabetes M-Mode DIMENSIONS RVDd1.56 (2.1-3.2cm)Left Atrium (MM)4.39 (2.5-4.0cm) IVSd1.24 (0.7-1.1cm)Aortic Root3.39 (2.2-3.7cm) LVDd5.89 (4.0-5.6cm)Aortic Cusp Exc.2.32 (1.5-2.0cm) PWd1.20 (0.7-1.1cm)FS (%) 34 % LVDs3.90 (2.0-3.8cm)LVEF (%)62 (>50%) Mitral Valve MV E Mywxoyzr03.1cm/sMV A Zodwgphv18.1cm/sE/A ratio0.9 TDI E/Lateral E'0.0E/Medial E'0.0 Tricuspid Valve TR Peak [id number]/sTR Peak Gr.[id number] LEFT VENTRICLE The Left Ventricle is mildly dilated. There is mild concentric left ventricular hypertrophy. Left ventricle systolic function is normal. The Ejection Fraction is 60-65%. There is normal LV segmental wall motion. Tissue Doppler imaging reveals abnormal left ventricular diastolic dysfunction. RIGHT VENTRICLE The right ventricle is normal size. There is normal right ventricular wall thickness. The right ventricular systolic function is normal. ATRIA The left atrium size is normal. The right atrium size is normal. The interatrial septum is intact with no evidence for an atrial septal defect. AORTIC VALVE The aortic valve is normal in structure. No aortic regurgitation is present. There is no aortic valvular stenosis. There is no aortic valvular vegetation. MITRAL VALVE The mitral valve is normal in structure. There is no evidence of mitral valve prolapse. There is no mitral valve stenosis. Mitral regurgitation is trace. TRICUSPID VALVE The tricuspid valve is normal in structure. There is mild tricuspid regurgitation. Right ventricular systolic pressure is estimated at less than 30 mmHg. There is no pulmonary hypertension. PULMONIC VALVE The pulmonic valve is not well visualized. There is no pulmonic valvular regurgitation. GREAT VESSELS The aortic root is normal in size. PERICARDIAL EFFUSION There is no significant pericardial effusion. <Conclusion> Left ventricle systolic function is normal. The Ejection Fraction is 60-65%. Diastolic dysfunction. No aortic regurgitation is present. Mitral regurgitation is trace. There is mild tricuspid regurgitation. There is no pulmonary hypertension. There is no pulmonic valvular regurgitation.
--- NOTE | 2017-01-13 10:07 | CP.PCM.PN ---
Subjective - Date & Time of Evaluation Date of Evaluation: 01/13/17 Time of Evaluation: 10:07 - Subjective Subjective: seen and examined up in chair. denies any sob cough nausea vomiting diarrhea dizziness headache rash Objective - Vital Signs/Intake and Output Vital Signs (last 24 hours): Temp Pulse Resp BP Pulse Ox 97.6 F 100 H 19 131/83 96 01/13/17 08:00 01/13/17 09:17 01/13/17 09:17 01/13/17 09:27 01/13/17 09:17 Intake and Output: 01/13/17 01/13/17 06:59 18:59 Intake Total 170 480 Output Total 0 Balance 170 480 - Medications Medications: Current Medications Albuterol/Ipratropium (Duoneb 3 Mg/0.5 Mg (3 Ml) Ud) 3 ml INH RQ6 [facility] Last Admin: 01/13/17 07:21 Dose: 3 ml Amlodipine Besylate (Norvasc) 5 mg PO DAILY [facility] Last Admin: 01/12/17 09:33 Dose: 5 mg Aspirin (Aspirin Chewable) 81 mg PO DAILY [facility] Last Admin: 01/13/17 09:27 Dose: 81 mg Calcium Acetate (Phoslo) 667 mg PO TIDCC [facility] Last Admin: 01/13/17 07:45 Dose: 667 mg Carvedilol (Coreg) 12.5 mg PO BID [facility] Last Admin: 01/13/17 09:27 Dose: 12.5 mg Famotidine (Pepcid) 20 mg PO DAILY [facility] Heparin Sodium (Porcine) (Heparin) 5,000 units SC Q8 [facility] Last Admin: 01/13/17 06:09 Dose: 5,000 units Piperacillin Sod/Tazobactam Sod (Zosyn 2.25 Gm Iv Premix) 2.25 gm in 50 mls @ 100 mls/hr IVPB Q8 [facility] Last Admin: 01/13/17 06:10 Dose: 100 mls/hr Insulin Human Regular (Novolin R) 0 unit SC ACHS [facility] PRN Reason: Protocol Last Admin: 01/13/17 07:30 Dose: Not Given Latanoprost (Xalatan Opht) 0.5 ml OU HS [facility] Last Admin: 01/12/17 22:58 Dose: 0.5 ml Losartan Potassium (Cozaar) 25 mg PO DAILY [facility] Last Admin: 01/13/17 09:27 Dose: 25 mg - Labs Labs: 01/13/17 06:26 01/13/17 06:26 PT 15.7 SECONDS (9.7-12.2) H 01/10/17 20:13 INR 1.4 01/10/17 20:13 APTT 34 SECONDS (21-34) 01/10/17 20:13 - Constitutional Appears: Non-toxic, No Acute Distress - Head Exam Head Exam: NORMAL INSPECTION - Eye Exam Eye Exam: Normal appearance - ENT Exam ENT Exam: Mucous Membranes Moist, Normal Exam - Neck Exam Neck Exam: Normal Inspection - Respiratory Exam Respiratory Exam: Decreased Breath Sounds, NORMAL BREATHING PATTERN - Cardiovascular Exam Cardiovascular Exam: REGULAR RHYTHM, RRR - GI/Abdominal Exam GI & Abdominal Exam: Distended, Soft, Normal Bowel Sounds - Extremities Exam Extremities Exam: Normal Inspection - Neurological Exam Neurological Exam: Alert, Awake, Oriented x3 Assessment and Plan (1) Fluid overload Status: Acute (2) HTN (hypertension) Status: Acute (3) Pneumonia Status: Acute (4) Sepsis Status: Acute (5) CHF (congestive heart failure) Status: Acute (6) Diabetes mellitus type 2 in nonobese Status: Acute (7) ESRD (end stage renal disease) Status: Acute - Assessment and Plan (Free Text) Assessment: maintain hd mwf, aggressive uf antibiotics supportive care
--- NOTE | 2017-01-13 12:39 | CP.CCUPN ---
<AkersAlisha ford - Last Filed: 01/13/17 12:36> CCU Subjective - Physician Review Subjective (Free Text): Patient was seen and examined at bedside in the AM. Patient is alert and oriented. Patient states his breathing has improved and has no further complaints at this time. 01/13/17 12:36 CCU Objective - Vital Signs / Intake & Output Vital Signs (Last 4 hours): Vital Signs Temp Pulse Resp BP Pulse Ox 01/13/17 12:00 97.9 F 92 H 100 01/13/17 11:53 124/75 01/13/17 10:00 101 H 16 100 01/13/17 09:40 140/82 01/13/17 09:27 131/83 01/13/17 09:17 100 H 19 131/83 96 01/13/17 09:11 96 H 25 H 152/83 H 95 Intake and Output (Last 8hrs): Intake & Output 01/12/17 01/13/17 01/13/17 22:59 06:59 14:59 Intake Total 320 0 720 Output Total 0 0 Balance 320 0 720 Intake: Intake, IV Amount 50 Right Forearm 50 Oral 270 0 720 Output: Urine 0 0 Urine, Voided 0 0 Stool 0 0 - Physical Exam Head: Positive for: Atraumatic, Normocephalic Pupils: Positive for: PERRL Extroacular Muscles: Positive for: EOMI Conjunctiva: Positive for: Normal Mouth: Positive for: Moist Mucous Membranes Respiratory/Chest: Positive for: Clear to Auscultation, Good Air Exchange. Negative for: Respiratory Distress, Wheezes, Rales Cardiovascular: Positive for: Regular Rate and Rhythm, Normal S1, S2 Abdomen: Positive for: Normal Bowel Sounds. Negative for: Tenderness, Distention Upper Extremity: Positive for: Normal Inspection. Negative for: Edema Lower Extremity: Positive for: Normal Inspection. Negative for: Edema, CALF TENDERNESS Neurological: Positive for: GCS=15, Speech Normal Skin: Positive for: Warm, Dry Psychiatric: Positive for: Alert, Oriented x 3, Normal Insight, Normal Concentration - Medications Active Medications: Active Medications Generic Name Dose Route Start Last Admin Trade Name Freq PRN Reason Stop Dose Admin Albuterol/Ipratropium 3 ml 01/11/17 02:00 01/13/17 07:21 Duoneb 3 Mg/0.5 Mg (3 Ml) Ud INH 3 ml RQ6 SHELBIE Administration Amlodipine Besylate 5 mg 01/11/17 10:00 01/12/17 09:33 Norvasc PO 5 mg DAILY SHELBIE Administration Aspirin 81 mg 01/11/17 10:00 01/13/17 09:27 Aspirin Chewable PO 81 mg DAILY SHELBIE Administration Calcium Acetate 667 mg 01/11/17 08:00 01/13/17 12:04 Phoslo PO 667 mg TIDCC SHELBIE Administration Carvedilol 12.5 mg 01/11/17 10:00 01/13/17 09:27 Coreg PO 12.5 mg BID SHELBIE Administration Famotidine 20 mg 01/14/17 10:00 Pepcid PO DAILY SHELBIE Heparin Sodium (Porcine) 5,000 units 01/11/17 22:00 01/13/17 06:09 Heparin SC 5,000 units Q8 SHELBIE Administration Piperacillin Sod/Tazobactam Sod 2.25 gm in 50 mls @ 100 mls/hr 01/11/17 06:00 01/13/17 06:10 Zosyn 2.25 Gm Iv Premix IVPB 100 mls/hr Q8 SHELBIE Administration Insulin Human Regular 0 unit 01/12/17 11:30 01/13/17 11:58 Novolin R SC 2 unit ACHS SHELBIE Administration Protocol Latanoprost 0.5 ml 01/11/17 22:00 01/12/17 22:58 Xalatan Opht OU 0.5 ml HS SHELBIE Administration Losartan Potassium 25 mg 01/11/17 10:00 01/13/17 09:27 Cozaar PO 25 mg DAILY SHELBIE Administration - Patient Studies Lab Studies: Microbiology Studies 01/11/17 Unknown MRSA Culture (Admit) - Final Nose MRSA NOT DETECTED Lab Studies 01/13/17 01/13/17 01/13/17 Range/Units 11:36 07:34 06:26 WBC (4.8-10.8) K/uL RBC (4.40-5.90) Mil/uL Hgb (12.0-18.0) g/dL Hct (35.0-51.0) % MCV (80.0-94.0) fL MCH (27.0-31.0) pg MCHC (33.0-37.0) g/dL RDW (11.5-14.5) % Plt Count (130-400) K/uL MPV (7.2-11.7) fL Sodium 143 (132-148) mmol/L Potassium 4.5 (3.6-5.2) mmol/L Chloride 93 L (98-107) mmol/L Carbon Dioxide 32 H (22-30) mmol/L Anion Gap 23 H (10-20) BUN 37 H (9-20) mg/dL Creatinine 8.4 H* D (0.8-1.5) MG/DL Est GFR ( Amer) 8 Est GFR (Non-Af Amer) 7 POC Glucose (mg/dL) 215 H 95 (65-110) mg/dL Random Glucose 94 (75-110) mg/dL Calcium 9.6 (8.6-10.4) mg/dl Phosphorus 5.5 H (2.5-4.5) mg/dL Magnesium 2.4 H (1.6-2.3) mg/dL Total Bilirubin 1.2 (0.2-1.3) mg/dL AST 21 (17-59) U/L ALT 27 (21-72) U/L Alkaline Phosphatase 49 (38-126) U/L Total Protein 7.5 (6.3-8.3) g/dL Albumin 4.0 (3.5-5.0) g/dL Globulin 3.5 (2.2-3.9) gm/dL Albumin/Globulin Ratio 1.1 (1.0-2.1) 01/13/17 01/12/17 01/12/17 Range/Units 06:26 21:04 16:14 WBC 5.1 (4.8-10.8) K/uL RBC 3.13 L (4.40-5.90) Mil/uL Hgb 8.7 L (12.0-18.0) g/dL Hct 26.5 L (35.0-51.0) % MCV 84.7 (80.0-94.0) fL MCH 28.0 (27.0-31.0) pg MCHC 33.0 (33.0-37.0) g/dL RDW 15.8 H (11.5-14.5) % Plt Count 174 (130-400) K/uL MPV 6.7 L (7.2-11.7) fL Sodium (132-148) mmol/L Potassium (3.6-5.2) mmol/L Chloride (98-107) mmol/L Carbon Dioxide (22-30) mmol/L Anion Gap (10-20) BUN (9-20) mg/dL Creatinine (0.8-1.5) MG/DL Est GFR ( Amer) Est GFR (Non-Af Amer) POC Glucose (mg/dL) 120 H 85 (65-110) mg/dL Random Glucose (75-110) mg/dL Calcium (8.6-10.4) mg/dl Phosphorus (2.5-4.5) mg/dL Magnesium (1.6-2.3) mg/dL Total Bilirubin (0.2-1.3) mg/dL AST (17-59) U/L ALT (21-72) U/L Alkaline Phosphatase (38-126) U/L Total Protein (6.3-8.3) g/dL Albumin (3.5-5.0) g/dL Globulin (2.2-3.9) gm/dL Albumin/Globulin Ratio (1.0-2.1) Laboratory Results - last 24 hr 01/12/17 01/12/17 01/13/17 16:14 21:04 06:26 WBC 5.1 RBC 3.13 L Hgb 8.7 L Hct 26.5 L MCV 84.7 MCH 28.0 MCHC 33.0 RDW 15.8 H Plt Count 174 MPV 6.7 L Sodium Potassium Chloride Carbon Dioxide Anion Gap BUN Creatinine Est GFR ( Amer) Est GFR (Non-Af Amer) POC Glucose (mg/dL) 85 120 H Random Glucose Calcium Phosphorus Magnesium Total Bilirubin AST ALT Alkaline Phosphatase Total Protein Albumin Globulin Albumin/Globulin Ratio 01/13/17 01/13/17 01/13/17 06:26 07:34 11:36 WBC RBC Hgb Hct MCV MCH MCHC RDW Plt Count MPV Sodium 143 Potassium 4.5 Chloride 93 L Carbon Dioxide 32 H Anion Gap 23 H BUN 37 H Creatinine 8.4 H* D Est GFR ( Amer) 8 Est GFR (Non-Af Amer) 7 POC Glucose (mg/dL) 95 215 H Random Glucose 94 Calcium 9.6 Phosphorus 5.5 H Magnesium 2.4 H Total Bilirubin 1.2 AST 21 ALT 27 Alkaline Phosphatase 49 Total Protein 7.5 Albumin 4.0 Globulin 3.5 Albumin/Globulin Ratio 1.1 Fingerstick Blood Sugar Results: 215 Review of Systems - Constitutional Constitutional: absent: Fever - Cardiovascular Cardiovascular: absent: Chest Pain, Dyspnea - Respiratory Respiratory: Dyspnea on Exertion. absent: Dyspnea, Wheezing - Gastrointestinal Gastrointestinal: absent: Constipation, Diarrhea, Nausea, Vomiting - Genitourinary Genitourinary: absent: Dysuria - Neurological Neurological: absent: Dizziness, Headaches Critical Care Progress Note - Nutrition Nutrition: Nutrition Category Date Time Status Renal Diet [DIET] Diets 01/12/17 Breakfast Active Assessment/Plan (1) Pneumonia Assessment and plan: 51-year-old male with history of diabetes hypertension end-stage renal disease on dialysis. Neuro: Alert and Oriented x3 Pulm: CT of the Chest w/o contrast to r/o Pneumonia: Ground glass opacities and patchy distribution of airspace opacities - related to atypical infection or edema. Respiration has improved on 3L of NC CV: Cardio Consult: Dr. Hair --> help appreciated Heme: No acute issues GI: Renal Diet Renal: Dialysis Nephrology Consult: Dr. león --> help appreciated ID: Blood culture: preliminary shows no growth Zosyn started 01/11 Endo: Diabetes Accuchecks/Insulin Sliding Scale DVT proph: SCDs, heparin subcutaneous GI Proph: Pepcid 20mg IVP Daily Code Status: full code Disposition: Transferred to Tele Case discussed with Dr. Charly Akers PGY-1 Current Visit: Yes Status: Acute <Natalio Parks - Last Filed: 01/13/17 17:57> CCU Objective - Vital Signs / Intake & Output Vital Signs (Last 4 hours): Vital Signs Temp Pulse Resp BP Pulse Ox 01/13/17 17:44 116/75 01/13/17 16:00 98.1 F 01/13/17 15:53 81 28 H 109/67 95 Intake and Output (Last 8hrs): Intake & Output 01/13/17 01/13/17 01/13/17 06:59 14:59 22:59 Intake Total 0 1010 Output Total 0 Balance 0 1010 Intake: Intake, IV Amount 50 Right Forearm 50 Oral 0 960 Output: Urine 0 Urine, Voided 0 Stool 0 - Medications Active Medications: Active Medications Generic Name Dose Route Start Last Admin Trade Name Esequielq PRN Reason Stop Dose Admin Albuterol/Ipratropium 3 ml 01/11/17 02:00 01/13/17 13:30 Duoneb 3 Mg/0.5 Mg (3 Ml) Ud INH 3 ml RQ6 SHELBIE Administration Amlodipine Besylate 5 mg 01/11/17 10:00 01/13/17 16:00 Norvasc PO Not Given DAILY SHELBIE Aspirin 81 mg 01/11/17 10:00 01/13/17 09:27 Aspirin Chewable PO 81 mg DAILY SHELBIE Administration Calcium Acetate 667 mg 01/11/17 08:00 01/13/17 17:44 Phoslo PO 667 mg TIDCC SHELBIE Administration Carvedilol 12.5 mg 01/11/17 10:00 01/13/17 17:44 Coreg PO 12.5 mg BID SHELBIE Administration Famotidine 20 mg 01/14/17 10:00 Pepcid PO DAILY SHELBIE Heparin Sodium (Porcine) 5,000 units 01/11/17 22:00 01/13/17 13:35 Heparin SC 5,000 units Q8 SHELBIE Administration Piperacillin Sod/Tazobactam Sod 2.25 gm in 50 mls @ 100 mls/hr 01/11/17 06:00 01/13/17 13:35 Zosyn 2.25 Gm Iv Premix IVPB 100 mls/hr Q8 SHELBIE Administration Insulin Human Regular 0 unit 01/12/17 11:30 01/13/17 16:30 Novolin R SC Not Given ACHS [facility] Protocol Latanoprost 0.5 ml 01/11/17 22:00 01/12/17 22:58 Xalatan Opht OU 0.5 ml HS SHELBIE Administration Losartan Potassium 25 mg 01/11/17 10:00 01/13/17 09:27 Cozaar PO 25 mg DAILY SHELBIE Administration - Patient Studies Lab Studies: Lab Studies 01/13/17 01/13/17 01/13/17 Range/Units 16:14 11:36 07:34 WBC (4.8-10.8) K/uL RBC (4.40-5.90) Mil/uL Hgb (12.0-18.0) g/dL Hct (35.0-51.0) % MCV (80.0-94.0) fL MCH (27.0-31.0) pg MCHC (33.0-37.0) g/dL RDW (11.5-14.5) % Plt Count (130-400) K/uL MPV (7.2-11.7) fL Sodium (132-148) mmol/L Potassium (3.6-5.2) mmol/L Chloride (98-107) mmol/L Carbon Dioxide (22-30) mmol/L Anion Gap (10-20) BUN (9-20) mg/dL Creatinine (0.8-1.5) MG/DL Est GFR ( Amer) Est GFR (Non-Af Amer) POC Glucose (mg/dL) 129 H 215 H 95 (65-110) mg/dL Random Glucose (75-110) mg/dL Calcium (8.6-10.4) mg/dl Phosphorus (2.5-4.5) mg/dL Magnesium (1.6-2.3) mg/dL Total Bilirubin (0.2-1.3) mg/dL AST (17-59) U/L ALT (21-72) U/L Alkaline Phosphatase (38-126) U/L Total Protein (6.3-8.3) g/dL Albumin (3.5-5.0) g/dL Globulin (2.2-3.9) gm/dL Albumin/Globulin Ratio (1.0-2.1) 01/13/17 01/13/17 01/12/17 Range/Units 06:26 06:26 21:04 WBC 5.1 (4.8-10.8) K/uL RBC 3.13 L (4.40-5.90) Mil/uL Hgb 8.7 L (12.0-18.0) g/dL Hct 26.5 L (35.0-51.0) % MCV 84.7 (80.0-94.0) fL MCH 28.0 (27.0-31.0) pg MCHC 33.0 (33.0-37.0) g/dL RDW 15.8 H (11.5-14.5) % Plt Count 174 (130-400) K/uL MPV 6.7 L (7.2-11.7) fL Sodium 143 (132-148) mmol/L Potassium 4.5 (3.6-5.2) mmol/L Chloride 93 L (98-107) mmol/L Carbon Dioxide 32 H (22-30) mmol/L Anion Gap 23 H (10-20) BUN 37 H (9-20) mg/dL Creatinine 8.4 H* D (0.8-1.5) MG/DL Est GFR ( Amer) 8 Est GFR (Non-Af Amer) 7 POC Glucose (mg/dL) 120 H (65-110) mg/dL Random Glucose 94 (75-110) mg/dL Calcium 9.6 (8.6-10.4) mg/dl Phosphorus 5.5 H (2.5-4.5) mg/dL Magnesium 2.4 H (1.6-2.3) mg/dL Total Bilirubin 1.2 (0.2-1.3) mg/dL AST 21 (17-59) U/L ALT 27 (21-72) U/L Alkaline Phosphatase 49 (38-126) U/L Total Protein 7.5 (6.3-8.3) g/dL Albumin 4.0 (3.5-5.0) g/dL Globulin 3.5 (2.2-3.9) gm/dL Albumin/Globulin Ratio 1.1 (1.0-2.1) Laboratory Results - last 24 hr 01/12/17 01/13/17 01/13/17 21:04 06:26 06:26 WBC 5.1 RBC 3.13 L Hgb 8.7 L Hct 26.5 L MCV 84.7 MCH 28.0 MCHC 33.0 RDW 15.8 H Plt Count 174 MPV 6.7 L Sodium 143 Potassium 4.5 Chloride 93 L Carbon Dioxide 32 H Anion Gap 23 H BUN 37 H Creatinine 8.4 H* D Est GFR ( Amer) 8 Est GFR (Non-Af Amer) 7 POC Glucose (mg/dL) 120 H Random Glucose 94 Calcium 9.6 Phosphorus 5.5 H Magnesium 2.4 H Total Bilirubin 1.2 AST 21 ALT 27 Alkaline Phosphatase 49 Total Protein 7.5 Albumin 4.0 Globulin 3.5 Albumin/Globulin Ratio 1.1 01/13/17 01/13/17 01/13/17 07:34 11:36 16:14 WBC RBC Hgb Hct MCV MCH MCHC RDW Plt Count MPV Sodium Potassium Chloride Carbon Dioxide Anion Gap BUN Creatinine Est GFR ( Amer) Est GFR (Non-Af Amer) POC Glucose (mg/dL) 95 215 H 129 H Random Glucose Calcium Phosphorus Magnesium Total Bilirubin AST ALT Alkaline Phosphatase Total Protein Albumin Globulin Albumin/Globulin Ratio Critical Care Progress Note - Nutrition Nutrition: Nutrition Category Date Time Status Renal Diet [DIET] Diets 01/12/17 Breakfast Active Attending/Attestation - Attestation I have personally seen and examined this patient.: Yes I have fully participated in the care of the patient.: Yes I have reviewed all pertinent clinical information: Yes Notes (Text): 01/13/17 17:57 Patient seen and examined in the intensive care unit. Case discussed with staff in the morning rounds. Stable for transfer to floor
--- NOTE | 2017-01-13 13:57 | PN ---
DATE: 01/13/2017 He is evaluated in the intensive care unit. SUBJECTIVE: He is on an oxygen mask, he is doing better, little bit strong. He ate a little bit. He has not been out of bed much, received physical therapy, I think he is improving. He is on aspirin, Coreg, Cozaar, DuoNeb, heparin, Norvasc, Novolin, Pepcid, PhosLo, Zilactin, and Zosyn IV. PHYSICAL EXAMINATION GENERAL: He is alert. His eyes are looking at me. He is appropriate, he is talking well. He tells me he is eating but has not gotten out of bed this week, he is getting dialysis. VITAL SIGNS: Temperature 98, 90 pulse, 111/71 blood pressure, 17 respiratory rate O2 sat on oxygen. HEENT: Head is atraumatic and normocephalic. HEART: Regular rate. LUNGS: Decreased breath sounds but clear. ABDOMEN: Soft. EXTREMITIES: Trace edema if any. LABORATORY DATA: He has 6.8 white count, 8.5 hemoglobin, 25.7 hematocrit, 175 platelets. He has a 144 sodium, potassium 4.6, BUN 57, creatinine 11, sugar is 120 at the highest so far, calcium is 9.3, phosphorus 6.1, magnesium 2.4, total bilirubin is 1.3, AST is 21. ALT is 25, alkaline phosphatase 51, total protein 7.4. ASSESSMENT: Looks like he is due for dialysis. He is being seen by Pulmonary, Renal, Cardiology. He had a CAT scan of the chest with reticular interstitial infiltrates, ground-glass opacities, patchy distribution of air space opacities, atypical infections, small bilateral pleural effusions. I wanted a thyroid ultrasound, I ordered one of those, prevascular mediastinal adenopathy, cardiomegaly. I ordered an ultrasound of the thyroid. There is a possibility of him being transferred out of the intensive care unit. His shortness of breath is slightly better. He is being seen by the lung doctor for acute pneumonia, end-stage renal disease, CHF. I will order a physical therapy, ultrasound of the thyroid. Checking his labs, continue with aggressive treatment and care, annual exams. Jim Paulino DO MTDDesi
--- NOTE | 2017-01-13 16:31 | US ---
Thyroid ultrasound History: Enlarged. Comparison: None available. Technique: Real-time sonography was performed through the thyroid. Findings Right lobe: 3.6 x 1.6 x 1.7 centimeters. Homogeneous echotexture. Normal flow. Thyroid isthmus measures 2.4 millimeters. Homogeneous echotexture. Normal flow. No discrete thyroid tissue noted at the expected location of the left lobe of the thyroid gland. Impression: No discrete thyroid tissue noted at the expected location of the left lobe of the thyroid gland. Clinical correlation. Remainder of the thyroid gland appeared preserved without discrete nodule.
--- NOTE | 2017-01-13 16:55 | CARD ---
APPROVED REPORT EKG Measurement Heart [id number] <Conclusion> Sinus tachycardia Possible Left atrial enlargement Borderline ECG
[2017-01-13] MEDS: Latanoprost 2.5 ml Opht Soln OU SCH (22:40)
[2017-01-14] MEDS: Albuterol-Ipratrop 3 mg / 0.5 (3 ml) UD INH SCH ×5 (02:30→20:24)
[2017-01-14] MEDS: Piperacill/Tazo 2.25gm in Dex 2.25 GM/50 ML BAG IVPB SCH ×3 (06:04→22:12)
[2017-01-14 06:47] LABS: HEMATOCRIT 26.6 % (35.0-51.0); MEAN CELL VOLUME 84.2 fL (80.0-94.0); MEAN CORPUSCULAR HEMOGLOBIN 27.9 pg (27.0-31.0); MEAN CORPUSCULAR HGB CONC 33.1 g/dL (33.0-37.0); MEAN PLATELET VOLUME 7.3 fL (7.2-11.7); WHITE BLOOD COUNT 5.4 K/uL (4.8-10.8)
[2017-01-14 06:59] LABS: ALB/GLOB RATIO 1.3 (1.0-2.1); BILIRUBIN,TOTAL 0.9 mg/dL (0.2-1.3); CALCIUM 9.5 mg/dl (8.6-10.4); MAGNESIUM 2.5 mg/dL (1.6-2.3); PHOSPHOROUS 6.2 mg/dL (2.5-4.5); POTASSIUM 4.4 mmol/L (3.6-5.2); TOTAL PROTEIN 7.6 g/dL (6.3-8.3)
--- NOTE | 2017-01-14 08:59 | CP.PCM.PN ---
Subjective - Date & Time of Evaluation Date of Evaluation: 01/14/17 Time of Evaluation: 08:57 - Subjective Subjective: Alert; in NAD No n, v, fevers, chills, diarrhea, HAs, CPs BP controlled Hg low- re-add JOVANI, Phos elevated- increase phoslo Objective - Vital Signs/Intake and Output Vital Signs (last 24 hours): Temp Pulse Resp BP Pulse Ox 97.5 F L 88 22 125/80 100 01/14/17 04:00 01/14/17 07:16 01/14/17 01:00 01/13/17 23:37 01/13/17 19:00 - Medications Medications: Current Medications Albuterol/Ipratropium (Duoneb 3 Mg/0.5 Mg (3 Ml) Ud) 3 ml INH RQ6 [facility] Last Admin: 01/14/17 07:17 Dose: 3 ml Amlodipine Besylate (Norvasc) 5 mg PO DAILY [facility] Last Admin: 01/13/17 16:00 Dose: Not Given Aspirin (Aspirin Chewable) 81 mg PO DAILY [facility] Last Admin: 01/13/17 09:27 Dose: 81 mg Calcium Acetate (Phoslo) 1,334 mg PO TIDCC [facility] Carvedilol (Coreg) 12.5 mg PO BID [facility] Last Admin: 01/13/17 17:44 Dose: 12.5 mg Epoetin Salvador (Procrit) 10,000 unit IV MWF [facility] Famotidine (Pepcid) 20 mg PO DAILY [facility] Heparin Sodium (Porcine) (Heparin) 5,000 units SC Q8 [facility] Last Admin: 01/14/17 06:05 Dose: 5,000 units Piperacillin Sod/Tazobactam Sod (Zosyn 2.25 Gm Iv Premix) 2.25 gm in 50 mls @ 100 mls/hr IVPB Q8 [facility] Last Admin: 01/14/17 06:04 Dose: 100 mls/hr Insulin Human Regular (Novolin R) 0 unit SC ACHS [facility] PRN Reason: Protocol Last Admin: 01/13/17 22:41 Dose: Not Given Latanoprost (Xalatan Opht) 0.5 ml OU HS [facility] Last Admin: 01/13/17 22:40 Dose: 0.5 ml Losartan Potassium (Cozaar) 25 mg PO DAILY [facility] Last Admin: 01/13/17 09:27 Dose: 25 mg - Labs Labs: 01/14/17 06:37 01/14/17 06:37 PT 15.7 SECONDS (9.7-12.2) H 01/10/17 20:13 INR 1.4 01/10/17 20:13 APTT 34 SECONDS (21-34) 01/10/17 20:13 - Constitutional Appears: No Acute Distress, Chronically Ill - Head Exam Head Exam: ATRAUMATIC, NORMAL INSPECTION - Eye Exam Eye Exam: EOMI, Normal appearance - Neck Exam Neck Exam: Normal Inspection. absent: Tenderness - Respiratory Exam Respiratory Exam: Clear to Ausculation Bilateral, NORMAL BREATHING PATTERN - Cardiovascular Exam Cardiovascular Exam: REGULAR RHYTHM, +S1 - GI/Abdominal Exam GI & Abdominal Exam: Soft. absent: Tenderness - Extremities Exam Extremities Exam: Normal Inspection. absent: Tenderness - Neurological Exam Neurological Exam: Alert, CN II-XII Intact - Skin Skin Exam: Dry, Warm Assessment and Plan (1) Fluid overload Status: Acute (2) HTN (hypertension) Status: Acute (3) Pneumonia Status: Acute (4) CHF (congestive heart failure) Status: Acute (5) Chronic renal allograft nephropathy Status: Acute (6) Diabetes mellitus type 2 in nonobese Status: Acute (7) ESRD (end stage renal disease) Status: Acute - Assessment and Plan (Free Text) Plan: Dialysis today with adequate UF Same BP meds Increase phoslo Add ESAs
[2017-01-14] MEDS: (Novolin R) Insulin Human Regular 100 units/ml vial SC SCH ×4 (09:14→21:39)
--- NOTE | 2017-01-14 12:03 | PN ---
DATE: SUBJECTIVE: I saw Shanna oRdrigez at bed 15 in the intensive care unit of [facility]. He is alert. He is talking to me. He looks strong. He is off the oxygen, much improved from yesterday and the day before. He is on aspirin, Coreg, Cozaar, DuoNeb, heparin, Norvasc, Novolin, Pepcid, PhosLo, Xalatan and Zosyn IV. He is definitely improved. He is strong. He is alert. He is talking, he is breathing well. I need to know what physical therapy thinks about him, if he needs rehab or he can go home. PHYSICAL EXAMINATION: GENERAL: He is alert and oriented x3. VITAL SIGNS: 97.5 temp, 80 pulse, 22 respiratory rate, 125/80 blood pressure. HEENT: His head is atraumatic and normocephalic. His throat is moist. NECK: Supple. HEART: Regular rate. LUNGS: Decreased breath sounds, but clear to auscultation bilaterally. No wheezes, no rhonchi, no rales. ABDOMEN: Soft and nontender. Positive bowel sounds. No guarding, no rebound. EXTREMITIES: No edema. LABORATORY DATA: He got 5.1 white count, 8.7 hemoglobin, 26.5 hematocrit with 124 platelets. He has 143 sodium, potassium 4.5, BUN is 37, creatinine 0.4. He is on dialysis. Last blood sugar was 111. Calcium 9.6, phosphorus 5.5, magnesium 2.4, total bilirubin is 1.2, AST is 21, ALT is 27, alkaline phosphatase 49, total protein 7.5. He is being seen by Pulmonary, the beauty culture teacher An ultrasound of the thyroid which showed no discrete thyroid tissue noted at the expected location of left lobe of the thyroid gland. Remainder of the thyroid appeared looked good so we do not go down that road. Moved here for interstitial infiltrates, ground-glass opacities infection but also effusion, pneumonia, end-stage renal disease, it is improving. We will have physical therapy in to see him, get him out of the intensive care unit today and we will work on discharge planning either home or subacute rehab. Jim Paulino DO MTDDesi
[2017-01-14] MEDS: Epoetin Alfa 10,000 unit/ml Dialysis IV SCH (15:47)
[2017-01-14] MEDS: Latanoprost 2.5 ml Opht Soln OU SCH (22:12)
[2017-01-15] MEDS: Albuterol-Ipratrop 3 mg / 0.5 (3 ml) UD INH SCH ×4 (01:41→20:03)
[2017-01-15] MEDS: Piperacill/Tazo 2.25gm in Dex 2.25 GM/50 ML BAG IVPB SCH ×3 (05:43→21:03)
[2017-01-15] MEDS: (Novolin R) Insulin Human Regular 100 units/ml vial SC SCH ×4 (07:17→21:41)
[2017-01-15 07:24] LABS: HEMATOCRIT 27.9 % (35.0-51.0); MEAN CELL VOLUME 84.1 fL (80.0-94.0); MEAN CORPUSCULAR HEMOGLOBIN 27.7 pg (27.0-31.0); MEAN PLATELET VOLUME 7.3 fL (7.2-11.7); RED CELL DISTRIBUTION WIDTH 15.9 % (11.5-14.5); WHITE BLOOD COUNT 6.5 K/uL (4.8-10.8)
[2017-01-15 07:30] LABS: POTASSIUM 4.2 mmol/L (3.6-5.2)
[2017-01-15 07:32] LABS: BILIRUBIN,TOTAL 0.7 mg/dL (0.2-1.3)
[2017-01-15 07:33] LABS: ALB/GLOB RATIO 1.2 (1.0-2.1); CALCIUM 9.6 mg/dl (8.6-10.4); PHOSPHOROUS 5.7 mg/dL (2.5-4.5); TOTAL PROTEIN 7.5 g/dL (6.3-8.3)
--- NOTE | 2017-01-15 08:19 | PN ---
SUBJECTIVE: I saw the patient, now out of the intensive care unit, in the room 670. He is comfortable in bed, slept well. He is eating well, feeling better overall. He tells me he is walking okay, a little bit better. I think he might need physical therapy. He is currently on aspirin, Coreg, Cozaar, DuoNeb, Norvasc, Novolin, Pepcid, PhosLo, Procrit, and Zosyn IV. The patient had pneumonia, sepsis, renal failure, non-ST elevation myocardial infarction. PHYSICAL EXAMINATION VITAL SIGNS: 97.9 temperature, 83 pulse, 108/68 blood pressure, 17 respiratory rate, 97% O2 sat on room air. HEENT: His head is atraumatic, normocephalic. Throat moist. NECK: Supple. HEART: Regular rate. LUNGS: Decreased breath sounds bilaterally, but clear to auscultation. ABDOMEN: Soft. EXTREMITIES: No edema. LABORATORY DATA: He has 5.4 white count, 8.8 hemoglobin, 26.6 hematocrit with 220 platelets. 142 sodium, potassium 4.2, BUN 57, creatinine 10.4. On dialysis, GFR is 5. Blood sugar is 88. Calcium is 9.5, phosphorus 6.2, magnesium 2.5, total bilirubin is 0.9, AST is 20, ALT is 23, alkaline phosphatase is 48, total protein is 7.6. He is being seen by Pulmonary, Renal, and Cardiology. I am going to try and get him to [facility] for IV antibiotics or other treatment or physical therapy. Before he goes home, I will check a chest x-ray and lab test today and tomorrow. Jim Paulino DO MTDDesi
--- NOTE | 2017-01-15 09:16 | CP.PCM.PN ---
Subjective - Date & Time of Evaluation Date of Evaluation: 01/15/17 Time of Evaluation: 09:13 - Subjective Subjective: Alert; much less dypneic. Still with dry cough HTN controlled s/p dialysis01/14- UF 2600ml No f, chills, n, v, diarrhea, HAs CXR with less congestion Objective - Vital Signs/Intake and Output Vital Signs (last 24 hours): Temp Pulse Resp BP Pulse Ox 97.9 F 82 17 114/72 97 01/14/17 17:00 01/15/17 08:00 01/14/17 17:00 01/14/17 18:38 01/14/17 17:00 Intake and Output: 01/15/17 01/15/17 06:59 18:59 Intake Total 450 Balance 450 - Medications Medications: Current Medications Albuterol/Ipratropium (Duoneb 3 Mg/0.5 Mg (3 Ml) Ud) 3 ml INH RQ6 [facility] Last Admin: 01/15/17 07:37 Dose: 3 ml Amlodipine Besylate (Norvasc) 5 mg PO DAILY [facility] Last Admin: 01/14/17 14:19 Dose: Not Given Aspirin (Aspirin Chewable) 81 mg PO DAILY [facility] Last Admin: 01/14/17 09:13 Dose: 81 mg Calcium Acetate (Phoslo) 1,334 mg PO TIDCC [facility] Last Admin: 01/15/17 08:31 Dose: 1,334 mg Carvedilol (Coreg) 12.5 mg PO BID [facility] Last Admin: 01/14/17 18:38 Dose: 12.5 mg Epoetin Salvador (Procrit) 10,000 unit IV MWF [facility] Last Admin: 01/14/17 15:47 Dose: 10,000 unit Famotidine (Pepcid) 20 mg PO DAILY [facility] Last Admin: 01/14/17 09:16 Dose: 20 mg Piperacillin Sod/Tazobactam Sod (Zosyn 2.25 Gm Iv Premix) 2.25 gm in 50 mls @ 100 mls/hr IVPB Q8 [facility] Last Admin: 01/15/17 05:43 Dose: 100 mls/hr Insulin Human Regular (Novolin R) 0 unit SC ACHS [facility] PRN Reason: Protocol Last Admin: 01/15/17 07:17 Dose: Not Given Latanoprost (Xalatan Opht) 0.5 ml OU HS [facility] Last Admin: 01/14/17 22:12 Dose: 0.5 ml Losartan Potassium (Cozaar) 25 mg PO DAILY [facility] Last Admin: 01/14/17 14:19 Dose: Not Given - Labs Labs: 01/15/17 07:06 01/15/17 07:06 PT 15.7 SECONDS (9.7-12.2) H 01/10/17 20:13 INR 1.4 01/10/17 20:13 APTT 34 SECONDS (21-34) 01/10/17 20:13 - Constitutional Appears: No Acute Distress, Chronically Ill - Head Exam Head Exam: ATRAUMATIC, NORMAL INSPECTION - Eye Exam Eye Exam: EOMI, Normal appearance - Neck Exam Neck Exam: Normal Inspection. absent: Tenderness - Respiratory Exam Respiratory Exam: Rhonchi, NORMAL BREATHING PATTERN - Cardiovascular Exam Cardiovascular Exam: REGULAR RHYTHM, +S1 - GI/Abdominal Exam GI & Abdominal Exam: Soft. absent: Tenderness - Extremities Exam Extremities Exam: Normal Inspection. absent: Tenderness - Neurological Exam Neurological Exam: Alert, CN II-XII Intact - Skin Skin Exam: Dry, Warm Assessment and Plan (1) Fluid overload Status: Acute (2) HTN (hypertension) Status: Acute (3) Pneumonia Status: Acute (4) CHF (congestive heart failure) Status: Acute (5) Chronic renal allograft nephropathy Status: Acute (6) Diabetes mellitus type 2 in nonobese Status: Acute (7) ESRD (end stage renal disease) Status: Acute - Assessment and Plan (Free Text) Plan: Continue aggressive UF with HD IV ABs still EPO restarted- monitor Hg Pulm follow up
--- NOTE | 2017-01-15 09:20 | RAD ---
HISTORY: pneumonia COMPARISON: 01/11/2017. TECHNIQUE: Chest PA and lateral FINDINGS: LUNGS: There is interval significant improved aeration in both lungs with residual patchy airspace disease in the left lower lobe. PLEURA: No significant pleural effusion identified. No pneumothorax apparent. CARDIOVASCULAR: Normal. OSSEOUS STRUCTURES: No significant abnormalities. VISUALIZED UPPER ABDOMEN: Normal. OTHER FINDINGS: None. IMPRESSION: Interval near complete resolution of pneumonia in the right lung. Residual patchy airspace disease in the left lower lobe could represent resolving pneumonia. Follow-up to resolution is advised.
--- NOTE | 2017-01-15 18:19 | CP.PCM.PN ---
Subjective - Date & Time of Evaluation Date of Evaluation: 01/15/17 Time of Evaluation: 18:16 - Subjective Subjective: feels better overall with less sob, cough decreased scanty sputum Objective - Vital Signs/Intake and Output Vital Signs (last 24 hours): Temp Pulse Resp BP Pulse Ox 97.9 F 76 20 109/68 100 01/15/17 15:00 01/15/17 15:00 01/15/17 15:00 01/15/17 15:00 01/15/17 15:00 Intake and Output: 01/15/17 01/15/17 06:59 18:59 Intake Total 450 450 Balance 450 450 - Medications Medications: Current Medications Albuterol/Ipratropium (Duoneb 3 Mg/0.5 Mg (3 Ml) Ud) 3 ml INH RQ6 [facility] Last Admin: 01/15/17 13:35 Dose: 3 ml Amlodipine Besylate (Norvasc) 5 mg PO DAILY [facility] Last Admin: 01/15/17 09:41 Dose: 5 mg Aspirin (Aspirin Chewable) 81 mg PO DAILY [facility] Last Admin: 01/15/17 09:40 Dose: 81 mg Calcium Acetate (Phoslo) 1,334 mg PO TIDCC [facility] Last Admin: 01/15/17 17:55 Dose: 1,334 mg Carvedilol (Coreg) 12.5 mg PO BID [facility] Last Admin: 01/15/17 09:41 Dose: 12.5 mg Epoetin Salvador (Procrit) 10,000 unit IV MWF [facility] Last Admin: 01/14/17 15:47 Dose: 10,000 unit Famotidine (Pepcid) 20 mg PO DAILY [facility] Last Admin: 01/15/17 09:40 Dose: 20 mg Piperacillin Sod/Tazobactam Sod (Zosyn 2.25 Gm Iv Premix) 2.25 gm in 50 mls @ 100 mls/hr IVPB Q8 [facility] Last Admin: 01/15/17 13:25 Dose: 100 mls/hr Insulin Human Regular (Novolin R) 0 unit SC ACHS [facility] PRN Reason: Protocol Last Admin: 01/15/17 11:35 Dose: Not Given Latanoprost (Xalatan Opht) 0.5 ml OU HS [facility] Last Admin: 01/14/17 22:12 Dose: 0.5 ml Losartan Potassium (Cozaar) 25 mg PO DAILY [facility] Last Admin: 01/15/17 09:41 Dose: 25 mg - Labs Labs: 01/15/17 07:06 01/15/17 07:06 PT 15.7 SECONDS (9.7-12.2) H 01/10/17 20:13 INR 1.4 01/10/17 20:13 APTT 34 SECONDS (21-34) 01/10/17 20:13 - Constitutional Appears: No Acute Distress - Head Exam Head Exam: ATRAUMATIC, NORMOCEPHALIC - Eye Exam Eye Exam: Normal appearance - ENT Exam ENT Exam: Mucous Membranes Moist - Respiratory Exam Respiratory Exam: Decreased Breath Sounds - Cardiovascular Exam Cardiovascular Exam: +S1, +S2 - GI/Abdominal Exam GI & Abdominal Exam: Normal Bowel Sounds - Rectal Exam Rectal Exam: Deferred - Neurological Exam Neurological Exam: Alert, Oriented x3 - Psychiatric Exam Psychiatric exam: Normal Affect, Normal Mood - Skin Skin Exam: Intact Assessment and Plan (1) Pneumonia Status: Acute (2) ESRD (end stage renal disease) on dialysis Status: Acute (3) CHF (congestive heart failure) Status: Acute
[2017-01-15] MEDS: Latanoprost 2.5 ml Opht Soln OU SCH (21:41)
[2017-01-16] MEDS: Albuterol-Ipratrop 3 mg / 0.5 (3 ml) UD INH SCH (01:19)
[2017-01-16] MEDS: Piperacill/Tazo 2.25gm in Dex 2.25 GM/50 ML BAG IVPB SCH ×3 (05:17→22:08)
[2017-01-16 07:21] LABS: MAGNESIUM 2.3 mg/dL (1.6-2.3); PHOSPHOROUS 7.4 mg/dL (2.5-4.5)
[2017-01-16] MEDS: (Novolin R) Insulin Human Regular 100 units/ml vial SC SCH ×4 (07:45→22:08)
--- NOTE | 2017-01-16 13:48 | CP.PCM.PN ---
Subjective - Date & Time of Evaluation Date of Evaluation: 01/16/17 Time of Evaluation: 13:45 - Subjective Subjective: Seen at dialysis- doing much better UF 3000ml with HD BP controlled Afebrile now No CPs, less dyspnea; no n, v, diarrhea, HAs Objective - Vital Signs/Intake and Output Vital Signs (last 24 hours): Temp Pulse Resp BP Pulse Ox 97.9 F 84 20 125/78 96 01/16/17 07:00 01/16/17 11:58 01/16/17 07:00 01/16/17 07:00 01/16/17 07:00 Intake and Output: 01/16/17 01/16/17 06:59 18:59 Intake Total 530 Balance 530 - Medications Medications: Current Medications Amlodipine Besylate (Norvasc) 5 mg PO DAILY [facility] Last Admin: 01/15/17 09:41 Dose: 5 mg Aspirin (Aspirin Chewable) 81 mg PO DAILY [facility] Last Admin: 01/16/17 09:11 Dose: 81 mg Calcium Acetate (Phoslo) 1,334 mg PO TIDCC [facility] Last Admin: 01/16/17 12:20 Dose: 1,334 mg Carvedilol (Coreg) 12.5 mg PO BID [facility] Last Admin: 01/16/17 09:12 Dose: Not Given Epoetin Salvador (Procrit) 10,000 unit IV MWF [facility] Last Admin: 01/14/17 15:47 Dose: 10,000 unit Famotidine (Pepcid) 20 mg PO DAILY [facility] Last Admin: 01/16/17 09:11 Dose: 20 mg Piperacillin Sod/Tazobactam Sod (Zosyn 2.25 Gm Iv Premix) 2.25 gm in 50 mls @ 100 mls/hr IVPB Q8 [facility] Last Admin: 01/16/17 05:17 Dose: 100 mls/hr Insulin Human Regular (Novolin R) 0 unit SC ACHS [facility] PRN Reason: Protocol Last Admin: 01/16/17 11:21 Dose: Not Given Latanoprost (Xalatan Opht) 0.5 ml OU HS [facility] Last Admin: 01/15/17 21:41 Dose: 0.5 ml Losartan Potassium (Cozaar) 25 mg PO DAILY [facility] Last Admin: 01/15/17 09:41 Dose: 25 mg - Labs Labs: 01/15/17 07:06 07/27/17 07:06 PT 15.7 SECONDS (9.7-12.2) H 01/10/17 20:13 INR 1.4 01/10/17 20:13 APTT 34 SECONDS (21-34) 01/10/17 20:13 - Constitutional Appears: No Acute Distress, Chronically Ill - Head Exam Head Exam: ATRAUMATIC, NORMAL INSPECTION - Eye Exam Eye Exam: EOMI, Normal appearance - Neck Exam Neck Exam: Normal Inspection. absent: Tenderness - Respiratory Exam Respiratory Exam: Clear to Ausculation Bilateral, NORMAL BREATHING PATTERN - Cardiovascular Exam Cardiovascular Exam: REGULAR RHYTHM, +S1 - GI/Abdominal Exam GI & Abdominal Exam: Soft, Tenderness - Extremities Exam Extremities Exam: Normal Inspection. absent: Tenderness - Neurological Exam Neurological Exam: Awake, CN II-XII Intact - Skin Skin Exam: Dry, Warm Assessment and Plan (1) Fluid overload Status: Acute (2) HTN (hypertension) Status: Acute (3) Pneumonia Status: Acute (4) CHF (congestive heart failure) Status: Acute (5) Chronic renal allograft nephropathy Status: Acute (6) Diabetes mellitus type 2 in nonobese Status: Acute (7) ESRD (end stage renal disease) Status: Acute - Assessment and Plan (Free Text) Plan: Same dialysis with adequate UF IV ABs as per medicine Same BP meds Arrange for outpt dialysis upon discharge
[2017-01-16] MEDS: Epoetin Alfa 10,000 unit/ml Dialysis IV SCH (14:13)
[2017-01-16] MEDS: Latanoprost 2.5 ml Opht Soln OU SCH (22:11)
[2017-01-17 01:00] VITALS: RESP 20
--- NOTE | 2017-01-17 04:25 | DS ---
HISTORY OF PRESENT ILLNESS: I saw Shanna resting comfortably in bed. He is breathing well, eating well, talking well. No complaints. No shortness of breath. He is in good spirits. I am trying to discharge him to his subacute rehab today. PHYSICAL EXAMINATION: VITAL SIGNS: 98 temperature, 88 pulse, 113/72 blood pressure, 18 respiratory rate, and 94% O2 sat on room air. HEENT: His head is atraumatic and normocephalic. Throat is moist. NECK: Supple. HEART: Regular rate. LUNGS: Decreased breath sounds and clear to auscultation. ABDOMEN: Soft and nontender. Positive bowel sounds. EXTREMITIES: No edema. MEDICATIONS: He is currently on aspirin, Coreg, Cozaar, Norvasc, Novolin, Pepcid, PhosLo, Procrit, Xalatan and Zosyn IV. LABORATORY DATA: He has a 6.5 white count, 9.2 hemoglobin, 27.9 hematocrit an and 245 platelets. He has a 138 sodium, potassium 4.2, BUN 36 and creatinine 8.3. He is on dialysis and GFR is 7. Sugars 92, calcium 9.6, phosphorus is 5.7, magnesium is 2, total bilirubin 0.7, AST is 21, ALT is 26, alkaline phosphatase 52 and total protein 7.5. ASSESSMENT AND PLAN: He is being seen by renal and pulmonary, belt operator and cardiology. He did very well overall. I will try to discharge him to subacute rehab. The patient wants to go to [facility] and mother wants to go to instead. The mother has to produce power of construction carpenter to make that decision that is what case management is waiting for. I will talk to the mother at length. I will continue aggressive treatment and care, he was here for pneumonia. Jim Paulino DO MTDDesi
[2017-01-17] MEDS: Piperacill/Tazo 2.25gm in Dex 2.25 GM/50 ML BAG IVPB SCH (05:29)
[2017-01-17] MEDS: (Novolin R) Insulin Human Regular 100 units/ml vial SC SCH ×4 (08:04→21:57)
--- NOTE | 2017-01-17 11:06 | CP.PCM.PN ---
Subjective - Date & Time of Evaluation Date of Evaluation: 01/17/17 Time of Evaluation: 11:03 - Subjective Subjective: Notes reviewed Comfortable in bed Offers no new complaints Appetite good Tolerating dialysis well No fever or chills No further cough No cp or palp No n/v/d Ros as above otherwise normal Objective - Vital Signs/Intake and Output Vital Signs (last 24 hours): Temp Pulse Resp BP Pulse Ox 98.2 F 75 20 119/70 95 01/17/17 08:00 01/17/17 08:00 01/17/17 08:00 01/17/17 09:31 01/17/17 08:00 - Medications Medications: Current Medications Amlodipine Besylate (Norvasc) 5 mg PO DAILY [facility] Last Admin: 01/17/17 09:31 Dose: 5 mg Aspirin (Aspirin Chewable) 81 mg PO DAILY [facility] Last Admin: 01/17/17 09:33 Dose: 81 mg Calcium Acetate (Phoslo) 1,334 mg PO TIDCC [facility] Last Admin: 01/17/17 08:15 Dose: 1,334 mg Carvedilol (Coreg) 12.5 mg PO BID [facility] Last Admin: 01/17/17 09:31 Dose: 12.5 mg Epoetin Salvador (Procrit) 10,000 unit IV MWF [facility] Last Admin: 01/16/17 14:13 Dose: 10,000 unit Famotidine (Pepcid) 20 mg PO DAILY [facility] Last Admin: 01/17/17 09:33 Dose: 20 mg Insulin Human Regular (Novolin R) 0 unit SC [facility] PRN Reason: Protocol Last Admin: 01/17/17 08:04 Dose: Not Given Latanoprost (Xalatan Opht) 0.5 ml OU HS [facility] Last Admin: 01/16/17 22:11 Dose: 0.5 ml Losartan Potassium (Cozaar) 25 mg PO DAILY [facility] Last Admin: 01/17/17 09:31 Dose: 25 mg - Labs Labs: 01/15/17 07:06 01/15/17 07:06 PT 15.7 SECONDS (9.7-12.2) H 01/10/17 20:13 INR 1.4 01/10/17 20:13 APTT 34 SECONDS (21-34) 01/10/17 20:13 - Constitutional Appears: Well, Non-toxic - Head Exam Head Exam: ATRAUMATIC, NORMAL INSPECTION - Eye Exam Eye Exam: EOMI, Normal appearance - ENT Exam ENT Exam: Mucous Membranes Moist, Normal Oropharynx - Neck Exam Neck Exam: absent: Lymphadenopathy, Thyromegaly - Respiratory Exam Respiratory Exam: Clear to Ausculation Bilateral, NORMAL BREATHING PATTERN. absent: Rhonchi - Cardiovascular Exam Cardiovascular Exam: +S1, +S2. absent: Rubs - GI/Abdominal Exam GI & Abdominal Exam: Soft, Normal Bowel Sounds - Neurological Exam Neurological Exam: Alert, Awake, Oriented x3 - Skin Skin Exam: Dry, Intact, Normal Color Assessment and Plan (1) HTN (hypertension) Status: Acute (2) Pneumonia Status: Acute (3) Diabetes mellitus type 2 in nonobese Status: Acute (4) ESRD (end stage renal disease) Status: Acute - Assessment and Plan (Free Text) Assessment: Tolerating dialysis schedule well Electrolytes acceptable Bp controlled Continue current medications Stable renal sanabria
--- NOTE | 2017-01-17 13:36 | PN ---
SUBJECTIVE: He is resting comfortably in bed. The mother wants him to go to [facility] when he gets clearance from his insurance. He is eating well, slept well, trying physical therapy. He is getting his medications. He has no complaints. No chest pain. No shortness of breath. No abdominal pain. No pain. He is on aspirin, Coreg, Cozaar, Norvasc, insulin coverage, Pepcid, PhosLo, Procrit, and latanoprost eye drops. PHYSICAL EXAMINATION: VITAL SIGNS: Temperature 98.1, pulse 74, blood pressure 135/69, respiratory rate 20, and 96% O2 sat on room air. HEENT: Head is atraumatic and normocephalic. Throat is moist. NECK: Supple. HEART: Regular rate. LUNGS: Clear to auscultation with decreased breath sounds. ABDOMEN: Soft and nontender. Positive bowel sounds. Obese. EXTREMITIES: No edema. He goes to dialysis. LABORATORY DATA: He has a white count of 6.5, hemoglobin 9.2, hematocrit 27.9 with platelets of 245. Last blood sugar is 92. Magnesium is 2.3. ASSESSMENT AND PLAN: We will check his labs tomorrow. I am not sure when he is going to go to rehab. His discharge is in the computer already. When they get a bed, he could be discharged there. I think it is the insurance issue, waiting for the insurance to give authorization. We will continue with aggressive treatment and care for Shanna. He is here for pneumonia, sepsis, non-ST elevation myocardial infarction, change in mental status, debility and needs physical therapy. Hopefully, he gets to [facility] over the next day or two. Jim Paulino DO
[2017-01-17] MEDS: Latanoprost 2.5 ml Opht Soln OU SCH (22:17)
[2017-01-18] MEDS: (Novolin R) Insulin Human Regular 100 units/ml vial SC SCH (07:30)
[2017-01-18 08:20] LABS: HEMATOCRIT 25.9 % (35.0-51.0); MEAN CELL VOLUME 84.6 fL (80.0-94.0); MEAN CORPUSCULAR HEMOGLOBIN 28.6 pg (27.0-31.0); MEAN CORPUSCULAR HGB CONC 33.8 g/dL (33.0-37.0); MEAN PLATELET VOLUME 7.2 fL (7.2-11.7); RED CELL DISTRIBUTION WIDTH 16.1 % (11.5-14.5); WHITE BLOOD COUNT 5.3 K/uL (4.8-10.8)
[2017-01-18 08:32] LABS: POTASSIUM 4.8 mmol/L (3.6-5.2)
[2017-01-18 08:34] LABS: BILIRUBIN,TOTAL 0.5 mg/dL (0.2-1.3)
[2017-01-18 08:35] LABS: ALB/GLOB RATIO 1.2 (1.0-2.1); CALCIUM 9.4 mg/dl (8.6-10.4)
[2017-01-18 09:01] VITALS: BP 121/71; PULSE 71; TEMP 97.7; O2SAT 100
--- NOTE | 2017-01-18 11:24 | PN ---
DATE: SUBJECTIVE: I saw Shanna resting comfortably in bed. He is feeling well. He is in good spirits. He is getting IV antibiotics. The plan is to go to subacute rehab for physical therapy before he can go home. Waiting for the insurance company to give us authorization. He is getting his IV antibiotics. PHYSICAL EXAMINATION: VITAL SIGNS: He has a 97.9 temperature, 83 pulse, 128/79 blood pressure, 20 respiratory rate, 97% O2 saturation on room air. HEENT: Head is atraumatic, normocephalic. Throat is moist. NECK: Supple. HEART: Regular rate. LUNGS: Decreased breath sounds, but clear to auscultation. EXTREMITIES: No edema. MEDICATIONS: He is currently on aspirin, Coreg, Cozaar, Norvasc, Novolin, Pepcid, PhosLo, Procrit and Xalatan. ASSESSMENT AND PLAN: He is currently off the antibiotics, and if that is the case if we get okay from physical therapy, I will try and discharge him. I am not sure if respond is to receive antibiotics or he should get a phone call from him. We will continue aggressive treatment and care on Shanna Rodrigez. Jim Paulino DO MTDD
--- NOTE | 2017-01-18 23:09 | DS ---
He is currently off the antibiotics. He is doing well and walking well. I do not know when the insurance company will allow him go to rehab or not discharged today. He will get his prescription of aspirin, Coreg, Cozaar, Norvasc, Pepcid, PhosLo and Xalatan. He did well and improved greatly. He has 5.3 white count, 8.8 hemoglobin and 25.9 hematocrit with 288 platelets. Last blood sugar was 81. Last CMP was done on 01/15/2017, not sure why they were not done in the past 3 days, they are ordered. Otherwise, improved clinically. He can follow up in the outpatient with me. Prescriptions were given, diet was given. Outpatient treatment was scheduled and hopefully will do very well and should come into the office next week to evaluate him. Jim Paulino DO MTDD
== END 2017-01-18 11:43 | DRG 871 ==
LOC: C.ER 19:47 → C.9I 22:52 → C.6T 01-14 10:51
PROVIDERS: ADMIT Family Medicine; ATTEND Family Medicine
PROC: 5A09457 Assistance with Respiratory Ventilation, 24-96 Consecutive Hours, Continuous Positive Airway Pressure (ICD-10-PCS; principal; 2017-01-10)
PROC: 5A1D60Z (ICD-10-PCS; 2017-01-11)
DX: A41.9 Sepsis, unspecified organism (principal); J18.9 Pneumonia, unspecified organism; R06.00 Dyspnea, unspecified; I21.4 Non-ST elevation (NSTEMI) myocardial infarction; I13.2 Hypertensive heart and chronic kidney disease with heart failure and with stage 5 chronic kidney disease, or end stage renal disease; T86.11 Kidney transplant rejection; N18.6 End stage renal disease; R41.0 Disorientation, unspecified; J44.0 Chronic obstructive pulmonary disease with (acute) lower respiratory infection; I27.2 Other secondary pulmonary hypertension; E10.22 Type 1 diabetes mellitus with diabetic chronic kidney disease; I50.9 Heart failure, unspecified; E03.9 Hypothyroidism, unspecified; J45.909 Unspecified asthma, uncomplicated; H40.9 Unspecified glaucoma; E78.00 Pure hypercholesterolemia, unspecified; Z79.4 Long term (current) use of insulin; Z79.82 Long term (current) use of aspirin; Z87.01 Personal history of pneumonia (recurrent); Z99.2 Dependence on renal dialysis

== ENCOUNTER 2018-09-06 07:56 | Inpatient (IN) | payer MEDICARE, OTHER ==
[2018-09-06] MEDS ORDERED: Nitroglycerin 50mg in D5W 50 MG/250 ML BOTTLE IV ONE (08:03)
[2018-09-06] MEDS ORDERED: Nitroglycerin 50mg in D5W 50 MG/250 ML BOTTLE IV STA (08:06)
[2018-09-06 08:07] VITALS: BMI 33.3
[2018-09-06] MEDS ORDERED: Vancomycin 1 gm/NS 200 ml 1 GM/200 ML BAG IVPB STA (08:23)
[2018-09-06] MEDS ORDERED: Piperacill/Tazo 3.375gm in Dex 3.375 GM/50 ML BAG IVPB STA (08:23)
--- NOTE | 2018-09-06 08:30 | C.PDOC ---
History Of Present Illness 53 y/o male,w/PMhx of HTN, diabetes, ESRD(on hemodialysis), and asthma, brought to ER by ambulance for evaluation of respiratory distress today.As per EMS, mother of patient stated that she was concerned that patient was drinking too much fluid over the past 2 days. EMS notes that his mother called the communications superintendent in patient's building and the communications superintendent found the patient. The communications superintendent called 911. Upon arrival EMS reports that patient was tachypneic in the 50's and O2 saturation in the 70's. EMS notes that patient was moaning with altered mental status, he was unable to answer questions. On arrival to ER, patient was started on BIPAP and has 02 saturation of 100. Currently , patient admits to drinking too much fluid.Denies having headache, CP, ETOH, and drug use. Of note, patient's last dialysis appointment was 3 days ago. Time Seen by Provider: 09/06/18 08:00 Chief Complaint (Nursing): Respiratory Distress History Per: Patient, EMS History/Exam Limitations: clinical condition Onset/Duration Of Symptoms: Days Current Symptoms Are (Timing): Still Present Severity: Moderate Past Medical History Reviewed: Historical Data, Nursing Documentation, Vital Signs Vital Signs: Last Vital Signs Temp 102.6 F H 09/06/18 08:14 Pulse 115 H 09/06/18 08:14 Resp 50 H 09/06/18 08:14 BP 178/101 H 09/06/18 08:14 Pulse Ox 99 09/06/18 08:14 - Medical History PMH: Anemia, Arthritis, Asthma, COPD, Diabetes, Fractures (RIB, LEG, FOOT), HTN, Hypothyroidism, Pneumonia, End Stage Renal Disease, Chronic Kidney Disease Denies: Alzheimer's Disease, Atrial Fibrillation, Bronchitis, Cardia Arrh ythmia, CHF, Dementia, Emphysema, Hypercholesterolemia, Kidney Stones, Migraine, Mitral Valve Prolapse, Multiple Sclerosis, Parkinson's Disease, Peripheral Edema, Pulmonary Embolism, Seizures, Sleep Apnea, TIA Surgical History: Denies: Pacemaker - [facility] Procedures ASSISTANCE WITH RESPIRATORY VENTILATION, 24-96 HRS, CPAP (01/10/17) ASSISTANCE WITH RESPIRATORY VENTILATION, >96 HRS, CPAP (08/15/15) ENDOSC POLYPECTOMY OF LG INTEST (02/03/13) MEASURE OF CARDIAC SAMPL & PRESSURE, R HEART, PERC APPROACH (08/15/15) PERFORMANCE OF URINARY FILTRATION, MULTIPLE (01/10/17) PLAIN RADIOGRAPHY OF LEFT HEART USING OTHER CONTRAST (08/15/15) PLAIN RADIOGRAPHY OF MULT COR ART USING OTH CONTRAST (08/15/15) Family History: States: No Known Family Hx - Social History Hx Tobacco Use: No Hx Alcohol Use: No Hx Substance Use: No - Immunization History Hx Tetanus Toxoid Vaccination: No Hx Influenza Vaccination: Yes (12/15/14) Hx Pneumococcal Vaccination: Yes (12/15/14) Review Of Systems Except As Marked, All Systems Reviewed And Found Negative. Constitutional: Negative for: Fever, Chills Cardiovascular: Negative for: Chest Pain Respiratory: Positive for: Other (tachypnea) Gastrointestinal: Negative for: Nausea, Vomiting Neurological: Positive for: Altered Mental Status. Negative for: Headache, Dizziness Physical Exam - Physical Exam Appears: Other (no significant acute distress) Skin: Normal Color, Warm, Dry Head: Atraumatic, Normacephalic Eye(s): bilateral: Normal Inspection Nose: Normal Oral Mucosa: Moist Neck: Supple Chest: Symmetrical Cardiovascular: Rhythm Regular Respiratory: Decreased Breath Sounds (diminished breath sounds), Rales (rales at bases), No Rhonchi, No Wheezing Gastrointestinal/Abdominal: Normal Exam, Soft, No Tenderness, No Guarding, No Rebound Extremity: Normal ROM, Other (no pitting edema) Neurological/Psych: Other (awake,alert, somewhat confused) ED Course And Treatment - Laboratory Results Result Diagrams: 09/11/18 07:03 09/11/18 07:03 ECG: Interpreted By Me, Viewed By Me ECG Rhythm: Sinus Tachycardia Interpretation Of ECG: Sinus Tachycardia with no ST elevations or depressions Rate From EC O2 Sat by Pulse Oximetry: 99 (RA) Pulse Ox Interpretation: Normal - Radiology CXR: Interpreted by Me, Viewed By Me CXR Interpretation: Yes: Other (significant pulmonary edema, unable to rule out inflitrates) Medical Decision Making Medical Decision Making: Differential Diagnoses: Fluid Overload vs Asthma Exacerbation Plan: --Labs --UA --Calcium Gluconate IV --Dextrose IV --Nitroglycerin IV --Zosyn IV --Tylenol PO Updates: 8:04 Case discussed with . advised for patient to undergo dialysis. Labwork reviewed. Patient has lactate level 1, there is no indication for sepsis at this time. 8:28 Case discussed with . Dr. Paulino has been made aware that patient is febrile and he is currently undergoing treatment for penumonia. request for to be placed on consult. Disposition Discussed With Dr.: Jim Paulino Doctor Will See Patient In The: Hospital Counseled Patient/Family Regarding: Studies Performed, Diagnosis - Disposition Disposition: HOSPITALIZED Disposition Time: 08:29 Condition: STABLE - Clinical Impression Clinical Impression: ESRD (end stage renal disease) on dialysis, Dyspnea, Pulmonary edema, Pneumonia - Scribe Statement The provider has reviewed the documentation as recorded by the Scribe Norm Prince Provider Attestation: All medical record entries made by the Scribe were at my direction and personally dictated by me. I have reviewed the chart and agree that the record accurately reflects my personal performance of the history, physical exam, medical decision making, and the department course for this patient. I have also personally directed, reviewed, and agree with the discharge instructions and disposition. Decision To Admit - Pt Status Changed To: Hospital Disposition Of: Inpatient - Admit Certification Admit to Inpatient:: After my assessment, the patient will require hospitalization for at least two midnights. This is because of the severity of symptoms shown, intensity of services needed, and/or the medical risk in this patient being treated as an outpatient. - InPatient: Physician Admission Certification: I certify that this patient requires 2 or more midnights of care for the following reason:: critical, repiratory distress - . Bed Request Type: Telemetry Admitting Physician: Jim Paulino Patient Diagnosis: ESRD (end stage renal disease) on dialysis, Dyspnea, Pulmonary edema, Pneumonia
[2018-09-06 08:34] LABS: BASO % 0.4 % (0.0-2.0); HEMOGLOBIN 9.1 g/dL (12.0-18.0); LYMPH # 0.8 K/uL (1.0-4.3); LYMPH % 7.6 % (20.0-40.0); MEAN CELL VOLUME 85.6 fL (80.0-94.0); MEAN CORPUSCULAR HEMOGLOBIN 28.6 pg (27.0-31.0); MEAN CORPUSCULAR HGB CONC 33.4 g/dL (33.0-37.0); MEAN PLATELET VOLUME 6.9 fL (7.2-11.7); MONO # 1.1 K/uL (0.0-0.8); MONO % 10.1 % (0.0-10.0); NEUT # 8.6 K/uL (1.8-7.0); NEUT % 81.9 % (50.0-75.0); PLATELET COUNT 215 K/uL (130-400); RBC 3.18 Mil/uL (4.40-5.90); RED CELL DISTRIBUTION WIDTH 18.2 % (11.5-14.5)
[2018-09-06 08:39] LABS: ABG ALLEN TEST POS; ARTERIAL BLOOD GAS HCO3 31.5 mmol/L (21-28); ARTERIAL BLOOD GAS O2 SAT 98.7 % (95-98); ARTERIAL BLOOD GAS PCO2 39 mm/Hg (35-45); ARTERIAL BLOOD GAS PH 7.52 (7.35-7.45); ARTERIAL BLOOD GAS PO2 358 mm/Hg (80-100)
[2018-09-06 08:40] LABS: WHITE BLOOD COUNT 10.5 K/uL (4.8-10.8)
[2018-09-06] MEDS ORDERED: Piperacillin/Tazobact 3.375 gm 100 ML IVPB ONE (08:55)
[2018-09-06 09:31] LABS: ALB/GLOB RATIO 1.6 (1.0-2.1); ALBUMIN 4.5 g/dL (3.5-5.0); BASOPHIL 1 % (0-2); CALCIUM 10.1 mg/dl (8.6-10.4); LYMPHOCYTE 8 % (20-40); MONOCYTE 9 % (0-10); NEUTROPHIL 82 % (50-75); PLATELET ESTIMATE NORMAL (NORMAL); TOTAL CELLS COUNTED 100; TROPONIN I 1.67 ng/mL (0.00-0.120)
[2018-09-06 09:33] LABS: ANISOCYTOSIS SLIGHT; HYPOCHROMIC SLIGHT; POIKILOCYTOSIS SLIGHT
[2018-09-06] MEDS ORDERED: Sod Polystyrene Sulf 15 gm/60 ml Susp PO STA (09:33)
[2018-09-06] MEDS ORDERED: (Novolin R) Insulin Human Regular 100 units/ml vial SC STA (09:33)
[2018-09-06] MEDS ORDERED: Dextrose 50% SYRINGE Inj (50 ml) IV STA (09:33)
[2018-09-06] MEDS ORDERED: Calcium Gluconate 4.65 mEq/10 ml Inj IVP STA (09:33)
[2018-09-06 09:34] LABS: OVALOCYTES SLIGHT
[2018-09-06 09:35] LABS: TARGET CELLS SLIGHT
[2018-09-06] MEDS ORDERED: Dextrose 50% SYRINGE Inj (50 ml) ONE (10:08)
[2018-09-06] MEDS ORDERED: (Novolin R) Insulin Human Regular 100 units/ml vial IVP ONE (10:10)
[2018-09-06] MEDS ORDERED: Calcium Gluconate 4.65 mEq/10 ml Inj ONE (10:11)
[2018-09-06] MEDS ORDERED: (Novolin R) Insulin Human Regular 100 units/ml vial ONE (10:16)
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
[2018-09-06 11:44] LABS: VENOUS BLOOD GAS BASE EXCESS 4.8 mmol/L (0.0-2.0); VENOUS BLOOD GAS PCO2 45 mmHg (40-60); VENOUS BLOOD GAS PO2 43 mm/Hg (30-55); VENOUS BLOOD PH 7.43 (7.32-7.43)
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
--- NOTE | 2018-09-06 13:15 | RAD ---
Chest x-ray single frontal view History: Shortness of breath. Comparison: 01/10/2017 Findings: Diffuse confluent patchy bilateral airspace opacities throughout both lungs again noted. Clinical correlation. Tortuous ectatic aorta. Cardiomegaly. Degenerative changes in the spine and shoulders. Impression: Diffuse confluent patchy bilateral airspace opacities throughout both lungs again noted. Clinical correlation. Tortuous ectatic aorta. Cardiomegaly.
[2018-09-06] MEDS ORDERED: Nitroglycerin 2% Ointment Foilpak UD TOP ONE (13:21)
[2018-09-06] MEDS ORDERED: Nitroglycerin 2% Ointment Foilpak UD TOP STA (13:30)
[2018-09-06 18:16] LABS: HEPATITIS B SURFACE AG Negative (NEGATIVE)
[2018-09-06] MEDS: Latanoprost 2.5 ml Opht Soln OU SCH (22:17)
--- NOTE | 2018-09-07 00:44 | HP ---
HISTORY OF PRESENT ILLNESS: For many years he ended up in the [facility] Emergency Room because he has some respiratory distress. His mother tells that he was drinking too much fluids over the past few days. He is also very tachypneic in the 50s. O2 sat was in the 70s. He had altered mental status, unable to answer questions. He is on BiPAP and oxygen 100%. He has some respiratory distress. PAST MEDICAL HISTORY: Hypertension, diabetes, end-stage renal disease, hemodialysis, asthma. He has fracture of his ribs, leg, foot, hypothyroidism, pneumonia history, chronic kidney disease. He has been on ventilator before. PAST SURGICAL HISTORY: He has had polypectomies. FAMILY HISTORY: Unknown family history. SOCIAL HISTORY: No smoking, no drinking, no drugs. IMMUNIZATIONS: Up-to-date with his vaccinations. REVIEW OF SYSTEMS: At this time, he is alert and confused during dialysis. Little bit confused to me. No chest pain. No palpitation. No shortness of breath. No cough at this time. No abdominal pain. No nausea, vomiting, constipation, or diarrhea. He has altered mental status. No headache. No dizziness. PHYSICAL EXAMINATION: VITAL SIGNS: 102.5 temperature, 115 pulse, 50 respiratory rate, 178/101 blood pressure, and 99% O2 sat on BiPAP. GENERAL: As Shanna came in, looks like a septic picture. HEAD: Atraumatic and normocephalic. Extraocular muscles are intact. Throat moist. SKIN: Warm and dry. No apparent rashes or ulcers. NECK: Supple. HEART: Regular rate. LUNGS: Decreased breath sounds bilaterally. Rales in the bases. ABDOMEN: Soft and nontender. Positive bowel sounds. No guarding. No rebound. No CVA tenderness. EXTREMITIES: No edema. He can move all four extremities. NEUROLOGIC: He is alert and confused. LABORATORY DATA: He had multiple tests; 10.5 white count, 9.1 hemoglobin, 27.2 hematocrit, and 215 platelets. He also had pCO2 of 39, pO2 of 50 on oxygen. 138 sodium, potassium 6.4, BUN 60, creatinine 15.6 dialysis right now, sugar is 148, calcium is 10.1, phosphorous 3.8, magnesium 2.5, total bili 0.9, AST 76, ALT 62, alk phos 51. His troponin I was 1.67. was 1.34. BNP was quite high at 159,000, he is on dialysis now. Negative for hepatitis B. ASSESSMENT AND PLAN: He is being seen by Infectious Disease and Renal. He had a chest x-ray that showed diffuse confluent patchy bilateral air space opacities of both lungs. Tortuous ectatic aorta and cardiomegaly. We will have blood tomorrow, dialysis today. Renal, Infectious Disease, and Cardiology evaluation. Hopefully, after dialysis he will improve. Swallow evaluation ordered. Physical therapy ordered. Dialysis tomorrow ordered. He is here for alerted mental status, febrile, end-stage renal disease, possible sepsis. Jim Paulino DO MTDD
[2018-09-07 07:20] LABS: HEMOGLOBIN 8.9 g/dL (12.0-18.0); MEAN CELL VOLUME 85.3 fL (80.0-94.0); MEAN CORPUSCULAR HEMOGLOBIN 28.1 pg (27.0-31.0); MEAN CORPUSCULAR HGB CONC 32.9 g/dL (33.0-37.0); RBC 3.17 Mil/uL (4.40-5.90); RED CELL DISTRIBUTION WIDTH 17.9 % (11.5-14.5)
[2018-09-07 08:34] LABS: ALB/GLOB RATIO 1.4 (1.0-2.1); ALBUMIN 4.1 g/dL (3.5-5.0); CALCIUM 10.1 mg/dl (8.6-10.4)
--- NOTE | 2018-09-07 10:11 | CP.PCM.PN ---
Subjective - Date & Time of Evaluation Date of Evaluation: 09/07/18 Time of Evaluation: 10:15 - Subjective Subjective: afebrile bp mildly elevated states still sob cogh productive of yellow bloody sputum hemotysis several days ago according to mother states coughing for months left flank tightness for past week ROS no chest pain no abd pain,n,v,d anuric Objective - Vital Signs/Intake and Output Vital Signs (last 24 hours): Temp Pulse Resp BP Pulse Ox 97.9 F 92 H 20 169/90 H 96 09/07/18 07:30 09/07/18 07:30 09/07/18 07:30 09/07/18 07:30 09/07/18 07:30 Intake and Output: 09/07/18 09/07/18 06:59 18:59 Intake Total 0 Balance 0 - Medications Medications: Current Medications Amlodipine Besylate (Norvasc) 10 mg PO DAILY [facility] Aspirin (Aspirin Chewable) 1 mg PO DAILY [facility] Calcium Acetate (Phoslo) 1,334 mg PO TIDCC [facility] Last Admin: 09/06/18 20:54 Dose: Not Given Carvedilol (Coreg) 25 mg PO BID [facility] Last Admin: 09/06/18 20:53 Dose: Not Given Famotidine (Pepcid) 20 mg PO DAILY [facility] Cefepime HCl (Maxipime Iv 1 Gm Premix) 1 gm in 50 mls @ 100 mls/hr IVPB Q24H [facility]; Protocol Influenza Virus Vaccine (Flucelvax Quad 1700-0161 Syr) 60 mcg IM .ONCE ONE Stop: 09/08/18 10:01 Latanoprost (Xalatan Opht) 0 ml OU HS [facility] Last Admin: 09/06/18 22:17 Dose: 2.5 ml Losartan Potassium (Cozaar) 50 mg PO DAILY [facility] Oseltamivir Phosphate (Tamiflu Cap) 50 mg PO BID [facility]; Protocol - Labs Labs: 09/07/18 07:06 09/07/18 07:06 - Constitutional Appears: No Acute Distress - Respiratory Exam Additional comments: prolonged inspiration and expiration coarse sounds - Cardiovascular Exam Cardiovascular Exam: REGULAR RHYTHM. absent: JVD - GI/Abdominal Exam GI & Abdominal Exam: Soft. 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
--- NOTE | 2018-09-07 11:54 | PN ---
DATE: 09/07/2018 SUBJECTIVE: I saw Shanna resting in bed. He has BiPAP on. He did recognize me this morning. He now has the flu. He is in isolation. He is on Tamiflu, aspirin, calcium, cefepime, Coreg, Cozaar, Kayexalate, nitroglycerine patch, amlodipine, Novolin, Pepcid, PhosLo, Zosyn. He is alert and he is found to have swallow difficulty, we ordered swallow eval. PHYSICAL EXAMINATION: VITAL SIGNS: He has 98.4 temperature, 98 pulse, 157/87 blood pressure, 20 respiratory rate, 97% O2 sat on BiPAP. HEENT: Head atraumatic, normocephalic. He knew me this morning, which is better; yesterday he was confused. He had dialysis yesterday. HEART: Regular rate. LUNGS: Decreased breath sounds. ABDOMEN: Soft. EXTREMITIES: No edema and he felt very warm to me, although his temperature now is 98.4. LABORATORY DATA: He has a 10.5 white count, 9.1 hemoglobin, 27.2 hematocrit with 215 platelets. He has 138 sodium, potassium is 6.4, Kayexalate was given, BUN 60, creatinine 15.6 on dialysis, sugars 148, calcium is 10.1, phosphorus 2.8. AST is 76, ALT 52, alk phos 61, troponin is 1.67, it came down to 1.34. His BNP was 159,000 at dialysis. He is positive for Influenza A. ASSESSMENT AND PLAN: He has been seen by Infectious Disease and Renal. He is having dyspnea and end-stage renal disease, he needed dialysis, which helped transplant, pneumonia, pulmonary edema, congestive heart failure, diabetes, swallow evaluation, and hypertension. Continue aggressive treatment and care. Silvana Paulino DO MTDD
--- NOTE | 2018-09-07 12:20 | CP.PCM.PN ---
Subjective - Date & Time of Evaluation Date of Evaluation: 09/07/18 Time of Evaluation: 09:00 - Subjective Subjective: examined at bedside chart reviewed orders signed Objective - Vital Signs/Intake and Output Vital Signs (last 24 hours): Temp Pulse Resp BP Pulse Ox 97.9 F 92 H 20 169/90 H 96 09/07/18 07:30 09/07/18 07:30 09/07/18 07:30 09/07/18 07:30 09/07/18 07:30 Intake and Output: 09/07/18 09/07/18 06:59 18:59 Intake Total 0 Balance 0 - Medications Medications: Current Medications Amlodipine Besylate (Norvasc) 10 mg PO DAILY [facility] Last Admin: 09/07/18 10:00 Dose: Not Given Aspirin (Aspirin Chewable) 1 mg PO DAILY [facility] Last Admin: 09/07/18 10:00 Dose: Not Given Calcium Acetate (Phoslo) 1,334 mg PO TIDCC [facility] Last Admin: 09/07/18 12:00 Dose: Not Given Carvedilol (Coreg) 25 mg PO BID [facility] Last Admin: 09/07/18 10:00 Dose: Not Given Famotidine (Pepcid) 20 mg PO DAILY [facility] Last Admin: 09/07/18 10:00 Dose: Not Given Cefepime HCl (Maxipime Iv 1 Gm Premix) 1 gm in 50 mls @ 100 mls/hr IVPB Q24H [facility]; Protocol Influenza Virus Vaccine (Flucelvax Quad 8243-4095 Syr) 60 mcg IM .ONCE ONE Stop: 09/08/18 10:01 Latanoprost (Xalatan Opht) 0 ml OU HS [facility] Last Admin: 09/06/18 22:17 Dose: 2.5 ml Losartan Potassium (Cozaar) 50 mg PO DAILY [facility] Last Admin: 09/07/18 10:00 Dose: Not Given Oseltamivir Phosphate (Tamiflu Cap) 50 mg PO BID [facility]; Protocol - Labs Labs: 09/07/18 07:06 09/07/18 07:06 - Constitutional Appears: Non-toxic, Cachectic - Head Exam Head Exam: NORMOCEPHALIC - Eye Exam Eye Exam: Scleral icterus Pupil Exam: NORMAL ACCOMODATION, PERRL - ENT Exam ENT Exam: Mucous Membranes Moist, Normal Exam - Neck Exam Neck Exam: Full ROM, Normal Inspection. absent: Lymphadenopathy - Respiratory Exam Respiratory Exam: Clear to Ausculation Bilateral, NORMAL BREATHING PATTERN - Cardiovascular Exam Cardiovascular Exam: REGULAR RHYTHM, +S1, +S2. absent: Murmur - GI/Abdominal Exam GI & Abdominal Exam: Soft, Normal Bowel Sounds. absent: Tenderness - Rectal Exam Rectal Exam: Deferred - Exam Exam: NORMAL INSPECTION - Extremities Exam Extremities Exam: Full ROM, Normal Capillary Refill, Normal Inspection. absent: Joint Swelling, Pedal Edema - Back Exam Back Exam: NORMAL INSPECTION - Neurological Exam Neurological Exam: Alert, Awake, CN II-XII Intact, Normal Gait, Oriented x3 - Psychiatric Exam Psychiatric exam: Normal Affect, Normal Mood - Skin Skin Exam: Dry, Intact, Normal Color, Warm Assessment and Plan (1) Dyspnea Status: Acute (2) ESRD (end stage renal disease) on dialysis Status: Acute (3) Failed kidney transplant Status: Acute (4) Pneumonia Status: Acute (5) Pulmonary edema Status: Acute (6) CHF (congestive heart failure) Status: Acute (7) Chronic renal allograft nephropathy Status: Acute (8) Diabetes mellitus type 2 in nonobese Status: Acute (9) Electrolyte imbalance Status: Acute (10) Fluid overload Status: Acute (11) HTN (hypertension) Status: Acute - Assessment and Plan (Free Text) Assessment: cont rx influenza
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
[2018-09-07] MEDS: Oseltamivir 6 MG/ML PO SCH (18:05)
[2018-09-07] MEDS: Cefepime IV 1 gm in Dextrose 1 GM/50 ML BAG IVPB SCH (18:11)
[2018-09-07] MEDS: Albuterol-Ipratrop 3 mg / 0.5 (3 ml) UD INH SCH (19:34)
[2018-09-07] MEDS: Latanoprost 2.5 ml Opht Soln OU SCH (21:20)
[2018-09-07] MEDS ORDERED: Dextrose 50% SYRINGE Inj (50 ml) ONE (21:21)
[2018-09-07] MEDS ORDERED: Dextrose 50% SYRINGE Inj (50 ml) IV STA (21:42)
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
[2018-09-08] MEDS: Albuterol-Ipratrop 3 mg / 0.5 (3 ml) UD INH SCH ×4 (01:24→19:37)
[2018-09-08] MEDS ORDERED: Dextrose 50% SYRINGE Inj (50 ml) IV STA (05:31)
--- NOTE | 2018-09-08 05:33 | CP.PCM.PCO ---
Physician Communication Note - Physician Communication Note Physician Communication Note: House Doc note: Overnight pt. required 2 X D50 25 ml due to hypoglycemia.
[2018-09-08 07:22] LABS: HEMOGLOBIN 8.5 g/dL (12.0-18.0); MEAN CELL VOLUME 85.5 fL (80.0-94.0); MEAN CORPUSCULAR HEMOGLOBIN 28.3 pg (27.0-31.0); MEAN PLATELET VOLUME 7.1 fL (7.2-11.7); RBC 3.01 Mil/uL (4.40-5.90); RED CELL DISTRIBUTION WIDTH 17.6 % (11.5-14.5); WHITE BLOOD COUNT 5.3 K/uL (4.8-10.8)
[2018-09-08 08:27] LABS: ALB/GLOB RATIO 1.4 (1.0-2.1); ALBUMIN 4.1 g/dL (3.5-5.0); CALCIUM 9.7 mg/dl (8.6-10.4)
[2018-09-08] MEDS ORDERED: Influenza Vaccine 60 mcg/0.5 mL SYR (4YR UP) IM ONE (10:00)
--- NOTE | 2018-09-08 10:23 | PN ---
DATE: 09/08/2018 SUBJECTIVE: He slept well. He was on the BiPAP. He is alert, presently confused. He is on aspirin, Coreg, Cozaar, DuoNeb, Maxipime IV, Norvasc, Pepcid, PhosLo, Tamiflu, and Xalatan. He has the flu, but he was more alert yesterday than this morning. He is going to a swallow eval today. PHYSICAL EXAMINATION: VITAL SIGNS: Temperature 97.8, 96 pulse, 158/84 blood pressure, 20 respiratory rate, 90% O2 sat on BiPAP 50%. HEENT: Head is atraumatic, normocephalic. NECK: Supple. HEART: Regular rate. LUNGS: Decreased breath sounds, but clear. ABDOMEN: Soft. EXTREMITIES: No edema. LABORATORY DATA: He has white count 7, 8.9 hemoglobin, 27 hematocrit with 182 platelets. His blood sugar was 185. His blood sugar have been low at 69, 55. He was given dextrose. He is not on any medication for diabetes. He has 138 sodium, potassium 5.1, BUN 43, creatinine 11 on dialysis, GFR is 56, troponin I was 0.45, and total protein of 7. ASSESSMENT AND PLAN: He is positive for the flu. He is being seen by Infectious Disease and Cardiology. He had a low blood sugar last time. He was given dextrose. He has some dyspnea, end-stage renal disease, pneumonia, congestive heart failure, little confusion. He is not swallowing well. Swallow evaluation today will be good. He will start to eat again. Continue aggressive treatmentand care for the flu and pneumonia. Jim Paulino DO [facility] HOSPITALDesi
[2018-09-08] MEDS: Oseltamivir 6 MG/ML PO SCH ×2 (11:14→18:39)
[2018-09-08] MEDS: Cefepime IV 1 gm in Dextrose 1 GM/50 ML BAG IVPB SCH (12:19)
--- NOTE | 2018-09-08 13:54 | CP.PCM.PN ---
Subjective - Date & Time of Evaluation Date of Evaluation: 09/08/18 Time of Evaluation: 13:51 - Subjective Subjective: s/p extra dialysis 09/07 feels better UF 2200ml HTN controlled due for regular HD today Objective - Vital Signs/Intake and Output Vital Signs (last 24 hours): Temp Pulse Resp BP Pulse Ox 97.9 F 78 20 143/77 100 09/08/18 07:15 09/08/18 07:15 09/08/18 07:15 09/08/18 11:13 09/08/18 07:15 Intake and Output: 09/08/18 09/08/18 06:59 18:59 Intake Total 45 Balance 45 - Medications Medications: Current Medications Albuterol/Ipratropium (Duoneb 3 Mg/0.5 Mg (3 Ml) Ud) 3 ml INH RQ6 [facility] Last Admin: 09/08/18 13:19 Dose: Not Given Amlodipine Besylate (Norvasc) 10 mg PO DAILY [facility] Last Admin: 09/08/18 11:13 Dose: 10 mg Aspirin (Aspirin Chewable) 81 mg PO DAILY [facility] Last Admin: 09/08/18 11:13 Dose: 81 mg Calcium Acetate (Phoslo) 1,334 mg PO TIDCC [facility] Last Admin: 09/08/18 11:14 Dose: 1,334 mg Carvedilol (Coreg) 25 mg PO BID [facility] Last Admin: 09/08/18 11:13 Dose: 25 mg Famotidine (Pepcid) 20 mg PO DAILY [facility] Last Admin: 09/08/18 11:14 Dose: 20 mg Cefepime HCl (Maxipime Iv 1 Gm Premix) 1 gm in 50 mls @ 100 mls/hr IVPB Q24H [facility]; Protocol Last Admin: 09/08/18 12:19 Dose: 100 mls/hr Latanoprost (Xalatan Opht) 0 ml OU HS [facility] Last Admin: 09/07/18 21:20 Dose: 2.5 ml Losartan Potassium (Cozaar) 50 mg PO DAILY [facility] Last Admin: 09/08/18 11:13 Dose: 50 mg Oseltamivir Phosphate (Tamiflu Susp) 30 mg PO BID [facility]; Protocol Stop: 09/12/18 13:43 Last Admin: 09/08/18 11:14 Dose: 30 mg - Labs Labs: 09/08/18 07:15 09/08/18 07:15 - Constitutional Appears: No Acute Distress, Chronically Ill - Head Exam Head Exam: ATRAUMATIC, NORMAL INSPECTION - Eye Exam Eye Exam: EOMI, Normal appearance - Neck Exam Neck Exam: Normal Inspection. absent: Tenderness - Respiratory Exam Respiratory Exam: Clear to Ausculation Bilateral, NORMAL BREATHING PATTERN - Cardiovascular Exam Cardiovascular Exam: REGULAR RHYTHM, +S1 - GI/Abdominal Exam GI & Abdominal Exam: Soft. absent: Tenderness - Extremities Exam Extremities Exam: Normal Inspection. absent: Tenderness - Neurological Exam Neurological Exam: Awake, CN II-XII Intact - Skin Skin Exam: Dry, Warm Assessment and Plan (1) Failed kidney transplant Status: Acute (2) ESRD (end stage renal disease) on dialysis Status: Acute (3) CHF (congestive heart failure) Status: Acute (4) Diabetes mellitus type 2 in nonobese Status: Acute (5) HTN (hypertension) Status: Acute - Assessment and Plan (Free Text) Plan: dialysis today will need lower EDW with outpt dialysis
--- NOTE | 2018-09-08 15:14 | CP.PCM.PN ---
Subjective - Date & Time of Evaluation Date of Evaluation: 09/08/18 Time of Evaluation: 13:00 - Subjective Subjective: Patient seen and examined at bedside. Patient states her breathing has improved. Still some cough.? Afebrile. Physical Exam: General: Awake, alert and oriented; not in any distress Cardio: Regular rhythm and rate; +S1 +S2; no murmur Pulm: Rales, rhonchi Abd: Soft, non-distended CXR 09/06: Consistent with b/l infiltrate. Assessment and Plan:? Pneumonia - Influenza infection with superadded pneumonia - Continue antibiotics per ID - Mycoplasma and Legionella titer - Continue hemodialysis - Follow-up ABG and CXR ESRD Pulmonary Edema Objective - Vital Signs/Intake and Output Vital Signs (last 24 hours): Temp Pulse Resp BP Pulse Ox 97.9 F 79 20 143/77 100 09/08/18 07:15 09/08/18 07:35 09/08/18 07:15 09/08/18 11:13 09/08/18 07:15 Intake and Output: 09/08/18 09/08/18 06:59 18:59 Intake Total 45 Balance 45 - Medications Medications: Current Medications Albuterol/Ipratropium (Duoneb 3 Mg/0.5 Mg (3 Ml) Ud) 3 ml INH RQ6 [facility] Last Admin: 09/08/18 13:19 Dose: Not Given Amlodipine Besylate (Norvasc) 10 mg PO DAILY [facility] Last Admin: 09/08/18 11:13 Dose: 10 mg Aspirin (Aspirin Chewable) 81 mg PO DAILY [facility] Last Admin: 09/08/18 11:13 Dose: 81 mg Calcium Acetate (Phoslo) 1,334 mg PO TIDCC [facility] Last Admin: 09/08/18 11:14 Dose: 1,334 mg Carvedilol (Coreg) 25 mg PO BID [facility] Last Admin: 09/08/18 11:13 Dose: 25 mg Famotidine (Pepcid) 20 mg PO DAILY [facility] Last Admin: 09/08/18 11:14 Dose: 20 mg Cefepime HCl (Maxipime Iv 1 Gm Premix) 1 gm in 50 mls @ 100 mls/hr IVPB Q24H [facility]; Protocol Last Admin: 09/08/18 12:19 Dose: 100 mls/hr Latanoprost (Xalatan Opht) 0 ml OU HS [facility] Last Admin: 09/07/18 21:20 Dose: 2.5 ml Losartan Potassium (Cozaar) 50 mg PO DAILY [facility] Last Admin: 09/08/18 11:13 Dose: 50 mg Oseltamivir Phosphate (Tamiflu Susp) 30 mg PO BID [facility]; Protocol Stop: 09/12/18 13:43 Last Admin: 09/08/18 11:14 Dose: 30 mg - Labs Labs: 09/08/18 07:15 09/08/18 07:15 Assessment and Plan (1) Pneumonia Status: Acute (2) ESRD (end stage renal disease) on dialysis Status: Acute (3) Pulmonary edema Status: Acute
[2018-09-08] MEDS: Azithromycin 500 MG in Sodium Chloride 0.9% 250 ML IVPB SCH (17:14)
--- NOTE | 2018-09-08 18:09 | CARD ---
APPROVED REPORT Date of service: 09/08/2018 EXAM: Two-dimensional and M-mode echocardiogram with Doppler and color Doppler. Other Information Quality : GoodRhythm : INDICATION COPD ESRD RISK FACTORS Hypertension Diabetes 2D DIMENSIONS IVSd1.0 (0.7-1.1cm)LVDd5.5 (3.9-5.9cm) PWd1.2 (0.7-1.1cm)LA Kwvjkg93 (18-58mL) LVDs3.8 (2.5-4.0cm)FS (%) 30.5 % LVEF (%)57.3 (>50%)LVEF (Cobb's)57.76 % M-Mode DIMENSIONS Left Atrium (MM)4.76 (2.5-4.0cm)IVSd1.24 (0.7-1.1cm) Aortic Root3.47 (2.2-3.7cm)LVDd6.05 (4.0-5.6cm) Aortic Cusp Exc.2.64 (1.5-2.0cm)PWd0.99 (0.7-1.1cm) FS (%) 32 %LVDs4.09 (2.0-3.8cm) LVEF (%)60 (>50%) Mitral Valve MV E Ojsibzpd90.8cm/sMV A Upqxfhmz74.2cm/sE/A ratio0.9 TDI Lateral E' Peak V8.29cm/sMedial E' Peak V7.90cm/sE/Lateral E'9.0 E/Medial E'9.5 Tricuspid Valve TR Peak Cqpzhjlg488ck/sTR Peak Gr.33puIoIGMC30mvVs LEFT VENTRICLE The left ventricle is normal size. There is normal left ventricular wall thickness. The left ventricular function is normal. The left ventricular ejection fraction is within the normal range. 58% No regional wall motion abnormalities noted. The left ventricular diastolic function is indeterminate. No left ventricle thrombus noted on this study. There is no ventricular septal defect visualized. There is no left ventricular aneurysm. There is no mass noted in the left ventricle. RIGHT VENTRICLE The right ventricle is normal size. There is normal right ventricular wall thickness. The right ventricular systolic function is normal. ATRIA The left atrial volume index is mild to moderately increased. It is mildly increased by 2D measurement. The right atrium size is normal. The interatrial septum is intact with no evidence for an atrial septal defect. AORTIC VALVE The aortic valve is normal in structure and function. No aortic regurgitation is present. There is no aortic valvular stenosis. There is no aortic valvular vegetation. MITRAL VALVE The mitral valve is normal in structure and function. There is no evidence of mitral valve prolapse. There is no mitral valve stenosis. There is no mitral valve regurgitation noted. TRICUSPID VALVE The tricuspid valve is normal in structure and function. There is no tricuspid valve regurgitation noted. There is no tricuspid valve prolapse or vegetation. There is no tricuspid valve stenosis. PULMONIC VALVE The pulmonary valve is normal in structure and function. There is no pulmonic valvular regurgitation. There is no pulmonic valvular stenosis. GREAT VESSELS The aortic root is normal in size. The ascending aorta is normal in size. The pulmonary artery is normal. The IVC is normal in size and collapses >50% with inspiration. PERICARDIAL EFFUSION The pericardium appears normal. There is no pleural effusion. <Conclusion> The left ventricular function is normal. The left atrial volume index is mild to moderately increased. It is mildly increased by 2D measurement. Normal Doppler.
--- NOTE | 2018-09-08 18:24 | CP.PCM.PN ---
Subjective - Date & Time of Evaluation Date of Evaluation: 09/08/18 Time of Evaluation: 08:00 - Subjective Subjective: improving awake alert nad afebrile less SOB Objective - Vital Signs/Intake and Output Vital Signs (last 24 hours): Temp Pulse Resp BP Pulse Ox 97.7 F 90 20 132/77 98 09/08/18 15:45 09/08/18 17:24 09/08/18 17:24 09/08/18 17:24 09/08/18 17:24 Intake and Output: 09/08/18 09/08/18 06:59 18:59 Intake Total 45 Balance 45 - Medications Medications: Current Medications Albuterol/Ipratropium (Duoneb 3 Mg/0.5 Mg (3 Ml) Ud) 3 ml INH RQ6 [facility] Last Admin: 09/08/18 13:19 Dose: Not Given Amlodipine Besylate (Norvasc) 10 mg PO DAILY [facility] Last Admin: 09/08/18 11:13 Dose: 10 mg Aspirin (Aspirin Chewable) 81 mg PO DAILY [facility] Last Admin: 09/08/18 11:13 Dose: 81 mg Calcium Acetate (Phoslo) 1,334 mg PO TIDCC [facility] Last Admin: 09/08/18 17:13 Dose: 1,334 mg Carvedilol (Coreg) 25 mg PO BID [facility] Last Admin: 09/08/18 17:14 Dose: 25 mg Famotidine (Pepcid) 20 mg PO DAILY [facility] Last Admin: 09/08/18 11:14 Dose: 20 mg Cefepime HCl (Maxipime Iv 1 Gm Premix) 1 gm in 50 mls @ 100 mls/hr IVPB Q24H [facility]; Protocol Last Admin: 09/08/18 12:19 Dose: 100 mls/hr Azithromycin 500 mg/ Sodium (Chloride) 250 mls @ 250 mls/hr IVPB Q24H [facility]; Protocol Last Admin: 09/08/18 17:14 Dose: 250 mls/hr Latanoprost (Xalatan Opht) 0 ml OU HS [facility] Last Admin: 09/07/18 21:20 Dose: 2.5 ml Losartan Potassium (Cozaar) 50 mg PO DAILY [facility] Last Admin: 09/08/18 11:13 Dose: 50 mg Oseltamivir Phosphate (Tamiflu Susp) 30 mg PO BID [facility]; Protocol Stop: 09/12/18 13:43 Last Admin: 09/08/18 11:14 Dose: 30 mg - Labs Labs: 09/08/18 07:15 09/08/18 07:15 - Constitutional Appears: Well - Head Exam Head Exam: ATRAUMATIC, NORMAL INSPECTION, NORMOCEPHALIC - Eye Exam Eye Exam: EOMI, Normal appearance, PERRL Pupil Exam: NORMAL ACCOMODATION, PERRL - ENT Exam ENT Exam: Mucous Membranes Moist, Normal Exam - Neck Exam Neck Exam: Full ROM, Normal Inspection. absent: Lymphadenopathy - Respiratory Exam Respiratory Exam: Decreased Breath Sounds, Prolonged Expiratory Phase - Cardiovascular Exam Cardiovascular Exam: REGULAR RHYTHM, +S1, +S2. absent: Murmur - GI/Abdominal Exam GI & Abdominal Exam: Soft, Normal Bowel Sounds. absent: Tenderness - Rectal Exam Rectal Exam: Deferred - Extremities Exam Extremities Exam: Full ROM, Normal Capillary Refill, Normal Inspection. absent: Joint Swelling, Pedal Edema - Back Exam Back Exam: NORMAL INSPECTION - Neurological Exam Neurological Exam: Alert, Awake, CN II-XII Intact, Normal Gait, Oriented x3 - Psychiatric Exam Psychiatric exam: Normal Affect, Normal Mood - Skin Skin Exam: Dry, Intact, Normal Color, Warm Assessment and Plan (1) Dyspnea Status: Acute (2) ESRD (end stage renal disease) on dialysis Status: Acute (3) Failed kidney transplant Status: Acute (4) Pneumonia Status: Acute (5) Pulmonary edema Status: Acute (6) CHF (congestive heart failure) Status: Acute (7) Chronic renal allograft nephropathy Status: Acute (8) Diabetes mellitus type 2 in nonobese Status: Acute (9) Electrolyte imbalance Status: Acute (10) Fluid overload Status: Acute (11) HTN (hypertension) Status: Acute - Assessment and Plan (Free Text) Assessment: cont tamiflu iv antibiotics
[2018-09-08] MEDS: Latanoprost 2.5 ml Opht Soln OU SCH (21:26)
--- NOTE | 2018-09-08 22:59 | CARD ---
APPROVED REPORT Date of service: 09/06/2018 EKG Measurement Heart [id number] <Conclusion> Sinus tachycardia Possible Left atrial enlargement Borderline ECG
[2018-09-09] MEDS: Albuterol-Ipratrop 3 mg / 0.5 (3 ml) UD INH SCH ×4 (01:15→19:58)
[2018-09-09 07:44] LABS: HEMOGLOBIN 8.5 g/dL (12.0-18.0); MEAN CELL VOLUME 85.1 fL (80.0-94.0); MEAN CORPUSCULAR HGB CONC 32.9 g/dL (33.0-37.0); MEAN PLATELET VOLUME 7.2 fL (7.2-11.7); RBC 3.02 Mil/uL (4.40-5.90); RED CELL DISTRIBUTION WIDTH 17.5 % (11.5-14.5); WHITE BLOOD COUNT 4.7 K/uL (4.8-10.8)
[2018-09-09 08:30] LABS: ALB/GLOB RATIO 1.4 (1.0-2.1); ALBUMIN 3.9 g/dL (3.5-5.0); CALCIUM 9.2 mg/dl (8.6-10.4)
--- NOTE | 2018-09-09 09:41 | CP.PCM.PN ---
Subjective - Date & Time of Evaluation Date of Evaluation: 09/09/18 Time of Evaluation: 09:39 - Subjective Subjective: Feels better; unable to fit into dialysis schedule 09/08 HTN controlled no dysnea, CPs, n, v, fevers Objective - Vital Signs/Intake and Output Vital Signs (last 24 hours): Temp Pulse Resp BP Pulse Ox 97.9 F 76 18 133/78 96 09/09/18 08:29 09/09/18 08:29 09/09/18 08:29 09/09/18 08:29 09/09/18 08:29 - Medications Medications: Current Medications Albuterol/Ipratropium (Duoneb 3 Mg/0.5 Mg (3 Ml) Ud) 3 ml INH RQ6 [facility] Last Admin: 09/09/18 01:15 Dose: 3 ml Amlodipine Besylate (Norvasc) 10 mg PO DAILY [facility] Last Admin: 09/08/18 11:13 Dose: 10 mg Aspirin (Aspirin Chewable) 81 mg PO DAILY [facility] Last Admin: 09/08/18 11:13 Dose: 81 mg Calcium Acetate (Phoslo) 1,334 mg PO TIDCC [facility] Last Admin: 09/08/18 17:13 Dose: 1,334 mg Carvedilol (Coreg) 25 mg PO BID [facility] Last Admin: 09/08/18 17:14 Dose: 25 mg Famotidine (Pepcid) 20 mg PO DAILY [facility] Last Admin: 09/08/18 11:14 Dose: 20 mg Cefepime HCl (Maxipime Iv 1 Gm Premix) 1 gm in 50 mls @ 100 mls/hr IVPB Q24H [facility]; Protocol Last Admin: 09/08/18 12:19 Dose: 100 mls/hr Azithromycin 500 mg/ Sodium (Chloride) 250 mls @ 250 mls/hr IVPB Q24H [facility]; Pr otocol Last Admin: 09/08/18 17:14 Dose: 250 mls/hr Latanoprost (Xalatan Opht) 0 ml OU HS [facility] Last Admin: 09/08/18 21:26 Dose: 2.5 ml Losartan Potassium (Cozaar) 50 mg PO DAILY [facility] Last Admin: 09/08/18 11:13 Dose: 50 mg Oseltamivir Phosphate (Tamiflu Susp) 30 mg PO BID [facility]; Protocol Stop: 09/12/18 13:43 Last Admin: 09/08/18 18:39 Dose: 30 mg - Labs Labs: 09/09/18 07:38 09/09/18 07:38 - Constitutional Appears: No Acute Distress, Chronically Ill - Head Exam Head Exam: ATRAUMATIC, NORMAL INSPECTION - Eye Exam Eye Exam: EOMI, Normal appearance - Neck Exam Neck Exam: Normal Inspection. absent: Tenderness - Respiratory Exam Respiratory Exam: Clear to Ausculation Bilateral, NORMAL BREATHING PATTERN - Cardiovascular Exam Cardiovascular Exam: REGULAR RHYTHM, +S1 - GI/Abdominal Exam GI & Abdominal Exam: Soft. absent: Tenderness - Extremities Exam Extremities Exam: Normal Inspection. absent: Tenderness - Neurological Exam Neurological Exam: Awake, CN II-XII Intact - Skin Skin Exam: Dry, Warm Assessment and Plan (1) Failed kidney transplant Status: Acute (2) ESRD (end stage renal disease) on dialysis Status: Acute (3) CHF (congestive heart failure) Status: Acute (4) Diabetes mellitus type 2 in nonobese Status: Acute (5) HTN (hypertension) Status: Acute - Assessment and Plan (Free Text) Plan: dialysis today Back on regular dialysis schedule in AM same BP meds Adequate UF goal
--- NOTE | 2018-09-09 09:45 | PN ---
DATE: 09/09/2018 SUBJECTIVE: He was resting comfortably in bed this morning. He knew where he was, he knew he was in [facility]. He knew who I was which is very good for him. He is slowly starting to improve. He is on aspirin, cefepime, Coreg, Cozaar, DuoNebs, amlodipine, Pepcid, PhosLo, Xalatan, and azithromycin. PHYSICAL EXAMINATION: GENERAL: He is more alert. VITAL SIGNS: He has a 98.1 temp, 76 pulse, 132/81 blood pressure, 20 respiratory rate, 96% O2 sat on 3 L. HEENT: Head is atraumatic, normocephalic. HEART: Regular rate. LUNGS: Decreased breath sounds but clear. ABDOMEN: Soft. EXTREMITIES: No edema. LABORATORY DATA: He has a 5.3 white count, 8.5 hemoglobin, 25.7 hematocrit with 194 platelets; 138 sodium, potassium 4.3, BUN 44, creatinine he is on dialysis; blood sugar 140, calcium is 9.7. Total bili is 1. AST is 44. ALT is 45, alk phos 84, total protein is 7. ASSESSMENT AND PLAN: He is being seen by Infectious Disease, Renal, Pulmonary. I believe he has bilateral infiltrates. He was dyspneic when he came in and he is starting to show improvement. I will continue with aggressive treatment and care. He has got the flu with bilateral pneumonia. Jim Paulino DO MTDDesi
[2018-09-09] MEDS: Oseltamivir 6 MG/ML PO SCH ×2 (10:38→18:51)
[2018-09-09] MEDS: Cefepime IV 1 gm in Dextrose 1 GM/50 ML BAG IVPB SCH (14:45)
[2018-09-09] MEDS ORDERED: Azithromycin 500mg/250ML NS 500 MG/250 ML BAG IVPB SCH (16:00)
--- NOTE | 2018-09-09 18:05 | CP.PCM.PN ---
Subjective - Date & Time of Evaluation Date of Evaluation: 09/09/18 Time of Evaluation: 11:00 - Subjective Subjective: Patient seen and examined at bedside. He feels well with breathing improved. Afebrile. Physical Exam: General: Awake, alert and oriented; not in any distress Cardio: Regular rhythm and rate; +S1 +S2; no murmur Pulm: Rales, rhonchi Abd: Soft, non-distended Assessment and Plan:? Pneumonia - Influenza a infection and superadded mycoplasma pneumonia -Patient started on azithromycin -Continue hemodialysis - BiPAP as needed ESRD Pulmonary Edema Objective - Vital Signs/Intake and Output Vital Signs (last 24 hours): Temp Pulse Resp BP Pulse Ox 97.1 F L 74 16 149/70 100 09/09/18 14:25 09/09/18 14:25 09/09/18 14:25 09/09/18 17:25 09/09/18 14:25 - Medications Medications: Current Medications Albuterol/Ipratropium (Duoneb 3 Mg/0.5 Mg (3 Ml) Ud) 3 ml INH RQ6 [facility] Last Admin: 09/09/18 14:10 Dose: Not Given Amlodipine Besylate (Norvasc) 10 mg PO DAILY [facility] Last Admin: 09/09/18 10:37 Dose: 10 mg Aspirin (Aspirin Chewable) 81 mg PO DAILY [facility] Last Admin: 09/09/18 10:38 Dose: 81 mg Calcium Acetate (Phoslo) 1,334 mg PO TIDCC [facility] Last Admin: 09/09/18 14:45 Dose: Not Given Carvedilol (Coreg) 25 mg PO BID [facility] Last Admin: 09/09/18 10:50 Dose: 25 mg Famotidine (Pepcid) 20 mg PO DAILY [facility] Last Admin: 09/09/18 10:50 Dose: 20 mg Cefepime HCl (Maxipime Iv 1 Gm Premix) 1 gm in 50 mls @ 100 mls/hr IVPB Q24H [facility]; Protocol Last Admin: 09/09/18 14:45 Dose: Not Given Azithromycin 500 mg/ Sodium (Chloride) 250 mls @ 250 mls/hr IVPB Q24H [facility]; Protocol Last Admin: 09/08/18 17:14 Dose: 250 mls/hr Latanoprost (Xalatan Opht) 0 ml OU HS [facility] Last Admin: 09/08/18 21:26 Dose: 2.5 ml Losartan Potassium (Cozaar) 50 mg PO DAILY [facility] Last Admin: 09/09/18 10:50 Dose: 50 mg Oseltamivir Phosphate (Tamiflu Susp) 30 mg PO BID [facility]; Protocol Stop: 09/12/18 13:43 Last Admin: 09/09/18 10:38 Dose: 30 mg - Labs Labs: 09/09/18 07:38 09/09/18 07:38 Assessment and Plan (1) Pneumonia Status: Acute (2) ESRD (end stage renal disease) on dialysis Status: Acute (3) Pulmonary edema Status: Acute
[2018-09-09] MEDS: Azithromycin 500 MG in Sodium Chloride 0.9% 250 ML IVPB SCH (18:52)
[2018-09-09] MEDS: Latanoprost 2.5 ml Opht Soln OU SCH (21:45)
--- NOTE | 2018-09-09 23:07 | CP.PCM.PN ---
Subjective - Date & Time of Evaluation Date of Evaluation: 09/09/18 Time of Evaluation: 08:00 - Subjective Subjective: events noted improving Objective - Vital Signs/Intake and Output Vital Signs (last 24 hours): Temp Pulse Resp BP Pulse Ox 97.6 F 68 20 138/72 100 09/09/18 17:55 09/09/18 17:55 09/09/18 17:55 09/09/18 18:51 09/09/18 17:55 - Medications Medications: Current Medications Albuterol/Ipratropium (Duoneb 3 Mg/0.5 Mg (3 Ml) Ud) 3 ml INH RQ6 [facility] Last Admin: 09/09/18 19:58 Dose: 3 ml Amlodipine Besylate (Norvasc) 10 mg PO DAILY [facility] Last Admin: 09/09/18 10:37 Dose: 10 mg Aspirin (Aspirin Chewable) 81 mg PO DAILY [facility] Last Admin: 09/09/18 10:38 Dose: 81 mg Calcium Acetate (Phoslo) 1,334 mg PO TIDCC [facility] Last Admin: 09/09/18 18:52 Dose: 1,334 mg Carvedilol (Coreg) 25 mg PO BID [facility] Last Admin: 09/09/18 18:51 Dose: 25 mg Famotidine (Pepcid) 20 mg PO DAILY [facility] Last Admin: 09/09/18 10:50 Dose: 20 mg Cefepime HCl (Maxipime Iv 1 Gm Premix) 1 gm in 50 mls @ 100 mls/hr IVPB Q24H [facility]; Protocol Last Admin: 09/09/18 14:45 Dose: Not Given Azithromycin 500 mg/ Sodium (Chloride) 250 mls @ 250 mls/hr IVPB Q24H [facility]; Protocol Last Admin: 09/09/18 18:52 Dose: 250 mls/hr Latanoprost (Xalatan Opht) 0 ml OU HS [facility] Last Admin: 09/09/18 21:45 Dose: 2.5 ml Losartan Potassium (Cozaar) 50 mg PO DAILY [facility] Last Admin: 09/09/18 10:50 Dose: 50 mg Oseltamivir Phosphate (Tamiflu Susp) 30 mg PO BID [facility]; Protocol Stop: 09/12/18 13:43 Last Admin: 09/09/18 18:51 Dose: 30 mg - Labs Labs: 09/09/18 07:38 09/09/18 07:38 - Constitutional Appears: Non-toxic - Head Exam Head Exam: NORMOCEPHALIC - Eye Exam Eye Exam: Scleral icterus - ENT Exam ENT Exam: Mucous Membranes Dry - Neck Exam Neck Exam: absent: Lymphadenopathy - Respiratory Exam Respiratory Exam: Decreased Breath Sounds - Cardiovascular Exam Cardiovascular Exam: REGULAR RHYTHM - GI/Abdominal Exam GI & Abdominal Exam: Distended, Soft - Rectal Exam Rectal Exam: Deferred - Exam Exam: NORMAL INSPECTION (x) - Extremities Exam Extremities Exam: absent: Pedal Edema - Back Exam Back Exam: absent: CVA tenderness (L), CVA tenderness (R) - Neurological Exam Neurological Exam: Alert, Awake Assessment and Plan (1) Dyspnea Status: Acute (2) ESRD (end stage renal disease) on dialysis Status: Acute (3) Failed kidney transplant Status: Acute (4) Pneumonia Status: Acute (5) Pulmonary edema Status: Acute (6) CHF (congestive heart failure) Status: Acute (7) Chronic renal allograft nephropathy Status: Acute (8) Diabetes mellitus type 2 in nonobese Status: Acute (9) Electrolyte imbalance Status: Acute (10) Fluid overload Status: Acute (11) HTN (hypertension) Status: Acute - Assessment and Plan (Free Text) Assessment: influenza a/ mycoplasma pneumonia improving
[2018-09-10] MEDS: Albuterol-Ipratrop 3 mg / 0.5 (3 ml) UD INH SCH ×4 (01:27→21:00)
--- NOTE | 2018-09-10 07:30 | CP.PCM.PN ---
Subjective - Date & Time of Evaluation Date of Evaluation: 09/09/18 Time of Evaluation: 09:00 - Subjective Subjective: feeling better no sob Objective - Vital Signs/Intake and Output Vital Signs (last 24 hours): Temp Pulse Resp BP Pulse Ox 98 F 68 20 129/74 96 09/10/18 00:05 09/10/18 03:11 09/10/18 00:05 09/10/18 00:05 09/10/18 00:05 - Medications Medications: Current Medications Albuterol/Ipratropium (Duoneb 3 Mg/0.5 Mg (3 Ml) Ud) 3 ml INH RQ6 [facility] Last Admin: 09/10/18 01:27 Dose: 3 ml Amlodipine Besylate (Norvasc) 10 mg PO DAILY [facility] Last Admin: 09/09/18 10:37 Dose: 10 mg Aspirin (Aspirin Chewable) 81 mg PO DAILY [facility] Last Admin: 09/09/18 10:38 Dose: 81 mg Calcium Acetate (Phoslo) 1,334 mg PO TIDCC [facility] Last Admin: 09/09/18 18:52 Dose: 1,334 mg Carvedilol (Coreg) 25 mg PO BID [facility] Last Admin: 09/09/18 18:51 Dose: 25 mg Famotidine (Pepcid) 20 mg PO DAILY [facility] Last Admin: 09/09/18 10:50 Dose: 20 mg Cefepime HCl (Maxipime Iv 1 Gm Premix) 1 gm in 50 mls @ 100 mls/hr IVPB Q24H [facility]; Protocol Last Admin: 09/09/18 14:45 Dose: Not Given Azithromycin 500 mg/ Sodium (Chloride) 250 mls @ 250 mls/hr IVPB Q24H [facility]; Protocol Last Admin: 09/09/18 18:52 Dose: 250 mls/hr Latanoprost (Xalatan Opht) 0 ml OU HS [facility] Last Admin: 09/09/18 21:45 Dose: 2.5 ml Losartan Potassium (Cozaar) 50 mg PO DAILY [facility] Last Admin: 09/09/18 10:50 Dose: 50 mg Oseltamivir Phosphate (Tamiflu Susp) 30 mg PO BID [facility]; Protocol Stop: 09/12/18 13:43 Last Admin: 09/09/18 18:51 Dose: 30 mg - Labs Labs: 09/09/18 07:38 09/09/18 07:38 Assessment and Plan - Assessment and Plan (Free Text) Assessment: CHF from fluid overload esrd Plan: Cont hemodialysis
--- NOTE | 2018-09-10 07:34 | CP.PCM.PN ---
Subjective - Date & Time of Evaluation Date of Evaluation: 09/07/18 Time of Evaluation: 08:00 - Subjective Subjective: improving after a few dialysis less sob Objective - Vital Signs/Intake and Output Vital Signs (last 24 hours): Temp Pulse Resp BP Pulse Ox 98 F 68 20 129/74 96 09/10/18 00:05 09/10/18 03:11 09/10/18 00:05 09/10/18 00:05 09/10/18 00:05 - Medications Medications: Current Medications Albuterol/Ipratropium (Duoneb 3 Mg/0.5 Mg (3 Ml) Ud) 3 ml INH RQ6 [facility] Last Admin: 09/10/18 01:27 Dose: 3 ml Amlodipine Besylate (Norvasc) 10 mg PO DAILY [facility] Last Admin: 09/09/18 10:37 Dose: 10 mg Aspirin (Aspirin Chewable) 81 mg PO DAILY [facility] Last Admin: 09/09/18 10:38 Dose: 81 mg Calcium Acetate (Phoslo) 1,334 mg PO TIDCC [facility] Last Admin: 09/09/18 18:52 Dose: 1,334 mg Carvedilol (Coreg) 25 mg PO BID [facility] Last Admin: 09/09/18 18:51 Dose: 25 mg Famotidine (Pepcid) 20 mg PO DAILY [facility] Last Admin: 09/09/18 10:50 Dose: 20 mg Cefepime HCl (Maxipime Iv 1 Gm Premix) 1 gm in 50 mls @ 100 mls/hr IVPB Q24H [facility]; Protocol Last Admin: 09/09/18 14:45 Dose: Not Given Azithromycin 500 mg/ Sodium (Chloride) 250 mls @ 250 mls/hr IVPB Q24H [facility]; Protocol Last Admin: 09/09/18 18:52 Dose: 250 mls/hr Latanoprost (Xalatan Opht) 0 ml OU HS [facility] Last Admin: 09/09/18 21:45 Dose: 2.5 ml Losartan Potassium (Cozaar) 50 mg PO DAILY [facility] Last Admin: 09/09/18 10:50 Dose: 50 mg Oseltamivir Phosphate (Tamiflu Susp) 30 mg PO BID [facility]; Protocol Stop: 09/12/18 13:43 Last Admin: 09/09/18 18:51 Dose: 30 mg - Labs Labs: 09/09/18 07:38 09/09/18 07:38 Assessment and Plan - Assessment and Plan (Free Text) Assessment: Pulmonary edema. improving ESRD Pneumonia Respiratory failure, improve Plan: Cont dialysis Abtx as per ID Nebulizer treatment
[2018-09-10 07:45] LABS: HEMOGLOBIN 8.5 g/dL (12.0-18.0); MEAN CELL VOLUME 83.8 fL (80.0-94.0); MEAN CORPUSCULAR HEMOGLOBIN 28.4 pg (27.0-31.0); MEAN CORPUSCULAR HGB CONC 33.9 g/dL (33.0-37.0); MEAN PLATELET VOLUME 6.8 fL (7.2-11.7); RED CELL DISTRIBUTION WIDTH 17.4 % (11.5-14.5); WHITE BLOOD COUNT 3.8 K/uL (4.8-10.8)
[2018-09-10 08:10] LABS: ALB/GLOB RATIO 1.4 (1.0-2.1); ALBUMIN 3.9 g/dL (3.5-5.0); CALCIUM 9.4 mg/dl (8.6-10.4)
[2018-09-10] MEDS: Oseltamivir 6 MG/ML PO SCH ×2 (09:21→17:23)
--- NOTE | 2018-09-10 10:00 | PN ---
DATE: 09/10/2018 SUBJECTIVE: He is resting comfortably in bed. He is actually sitting up in bed. He is alert. He is talking. The oxygen is off. He is in good spirits, the best I have seen him; I understand he has passed a swallow eval and he is now eating. PHYSICAL EXAMINATION: VITAL SIGNS: 98 temp, 74 pulse, 129/74 blood pressure, 20 respiratory rate, 96% O2 sat on nasal cannula. HEENT: Head is atraumatic, normocephalic. HEART: Regular rate. LUNGS: Decreased breath sounds, but clear. ABDOMEN: Soft. EXTREMITIES: No edema. MEDICATIONS: He is on aspirin, azithromycin, Coreg, Cozaar, DuoNebs, Maxipime, Norvasc, Pepcid, PhosLo, Tamiflu, and Xalatan. LABORATORY DATA: He has a 4.7 white count, 8.5 hemoglobin, 192 platelets; 134 sodium, potassium 4.3, BUN 62, creatinine 12.1, on dialysis. His blood sugar is 156, calcium is 9.2. Total bilirubin is 0.7, AST is 40, ALT is 50, alk phos 56, total protein 6.7. ASSESSMENT AND PLAN: He is being seen by Infectious Disease and Pulmonary, definitely improving. He has dyspnea, end-stage renal disease, pneumonia, and he is trying to get stronger, swallowing now. We will check his labs tomorrow. Intravenous antibiotics as per Infectious Disease. Ordered physical therapy. Each day, better and better. Jim Paulino DO
[2018-09-10] MEDS: Cefepime IV 1 gm in Dextrose 1 GM/50 ML BAG IVPB SCH (11:05)
--- NOTE | 2018-09-10 14:16 | CP.PCM.PN ---
Subjective - Date & Time of Evaluation Date of Evaluation: 09/10/18 Time of Evaluation: 14:14 - Subjective Subjective: feels better no new complaint stable dialysis 3/21 Hg still low- start ESAs Objective - Vital Signs/Intake and Output Vital Signs (last 24 hours): Temp Pulse Resp BP Pulse Ox 97.8 F 71 20 125/69 95 09/10/18 07:12 09/10/18 07:12 09/10/18 07:12 09/10/18 09:17 09/10/18 07:12 - Medications Medications: Current Medications Albuterol/Ipratropium (Duoneb 3 Mg/0.5 Mg (3 Ml) Ud) 3 ml INH RQ6 [facility] Last Admin: 09/10/18 13:33 Dose: 3 ml Amlodipine Besylate (Norvasc) 10 mg PO DAILY [facility] Last Admin: 09/10/18 09:17 Dose: 10 mg Aspirin (Aspirin Chewable) 81 mg PO DAILY [facility] Last Admin: 09/10/18 09:16 Dose: 81 mg Calcium Acetate (Phoslo) 1,334 mg PO TIDCC [facility] Last Admin: 09/10/18 11:05 Dose: 1,334 mg Carvedilol (Coreg) 25 mg PO BID [facility] Last Admin: 09/10/18 09:17 Dose: 25 mg Epoetin Salvador (Procrit) 10,000 unit IV TTS [facility] Famotidine (Pepcid) 20 mg PO DAILY [facility] Last Admin: 09/10/18 09:16 Dose: 20 mg Cefepime HCl (Maxipime Iv 1 Gm Premix) 1 gm in 50 mls @ 100 mls/hr IVPB Q24H [facility]; Protocol Last Admin: 09/10/18 11:05 Dose: 100 mls/hr Azithromycin 500 mg/ Sodium (Chloride) 250 mls @ 250 mls/hr IVPB Q24H [facility]; Protocol Last Admin: 09/09/18 18:52 Dose: 250 mls/hr Latanoprost (Xalatan Opht) 0 ml OU HS [facility] Last Admin: 09/09/18 21:45 Dose: 2.5 ml Losartan Potassium (Cozaar) 50 mg PO DAILY [facility] Last Admin: 09/10/18 09:16 Dose: 50 mg Oseltamivir Phosphate (Tamiflu Susp) 30 mg PO BID [facility]; Protocol Stop: 09/12/18 13:43 Last Admin: 09/10/18 09:21 Dose: 30 mg - Labs Labs: 09/10/18 07:21 09/10/18 07:21 - Constitutional Appears: No Acute Distress, Chronically Ill - Head Exam Head Exam: ATRAUMATIC, NORMAL INSPECTION - Eye Exam Eye Exam: EOMI, Normal appearance - Neck Exam Neck Exam: Normal Inspection. absent: Tenderness - Respiratory Exam Respiratory Exam: Clear to Ausculation Bilateral, NORMAL BREATHING PATTERN - Cardiovascular Exam Cardiovascular Exam: REGULAR RHYTHM, +S1 - GI/Abdominal Exam GI & Abdominal Exam: Soft. absent: Tenderness - Extremities Exam Extremities Exam: Normal Inspection. absent: Tenderness - Neurological Exam Neurological Exam: Awake, CN II-XII Intact - Skin Skin Exam: Dry, Warm Assessment and Plan (1) Failed kidney transplant Status: Acute (2) ESRD (end stage renal disease) on dialysis Status: Acute (3) CHF (congestive heart failure) Status: Acute (4) Diabetes mellitus type 2 in nonobese Status: Acute (5) HTN (hypertension) Status: Acute - Assessment and Plan (Free Text) Plan: Add EPO Dialysis TTS adequate UF Eventually return to MWF schedule
--- NOTE | 2018-09-10 15:09 | CP.PCM.PN ---
Subjective - Date & Time of Evaluation Date of Evaluation: 09/10/18 Time of Evaluation: 10:00 - Subjective Subjective: Patient seen and examined at bedside. States he feels well. Denies cough, shortness of breath. Afebrile. Physical Exam: General: Awake, alert and oriented; not in any distress Cardio: Regular rhythm and rate; +S1 +S2; no murmur Pulm: Rales, rhonchi Abd: Soft, non-distended Assessment and Plan:? Pneumonia - Influenza a infection and superadded mycoplasma pneumonia - Continue azithromycin - Continue hemodialysis Objective - Vital Signs/Intake and Output Vital Signs (last 24 hours): Temp Pulse Resp BP Pulse Ox 97.8 F 71 20 125/69 95 09/10/18 07:12 09/10/18 07:12 09/10/18 07:12 09/10/18 09:17 09/10/18 07:12 - Medications Medications: Current Medications Albuterol/Ipratropium (Duoneb 3 Mg/0.5 Mg (3 Ml) Ud) 3 ml INH RQ6 [facility] Last Admin: 09/10/18 13:33 Dose: 3 ml Amlodipine Besylate (Norvasc) 10 mg PO DAILY [facility] Last Admin: 09/10/18 09:17 Dose: 10 mg Aspirin (Aspirin Chewable) 81 mg PO DAILY [facility] Last Admin: 09/10/18 09:16 Dose: 81 mg Calcium Acetate (Phoslo) 1,334 mg PO TIDCC [facility] Last Admin: 09/10/18 11:05 Dose: 1,334 mg Carvedilol (Coreg) 25 mg PO BID [facility] Last Admin: 09/10/18 09:17 Dose: 25 mg Epoetin Salvador (Procrit) 10,000 unit IV TTS [facility] Famotidine (Pepcid) 20 mg PO DAILY [facility] Last Admin: 09/10/18 09:16 Dose: 20 mg Cefepime HCl (Maxipime Iv 1 Gm Premix) 1 gm in 50 mls @ 100 mls/hr IVPB Q24H [facility]; Protocol Last Admin: 09/10/18 11:05 Dose: 100 mls/hr Azithromycin 500 mg/ Sodium (Chloride) 250 mls @ 250 mls/hr IVPB Q24H [facility]; Protocol Last Admin: 09/09/18 18:52 Dose: 250 mls/hr Latanoprost (Xalatan Opht) 0 ml OU HS [facility] Last Admin: 09/09/18 21:45 Dose: 2.5 ml Losartan Potassium (Cozaar) 50 mg PO DAILY [facility] Last Admin: 09/10/18 09:16 Dose: 50 mg Oseltamivir Phosphate (Tamiflu Susp) 30 mg PO BID [facility]; Protocol Stop: 09/12/18 13:43 Last Admin: 09/10/18 09:21 Dose: 30 mg - Labs Labs: 09/10/18 07:21 09/10/18 07:21 Assessment and Plan (1) Pneumonia Status: Acute (2) ESRD (end stage renal disease) on dialysis Status: Acute (3) Pulmonary edema Status: Acute
[2018-09-10] MEDS: Azithromycin 500 MG in Sodium Chloride 0.9% 250 ML IVPB SCH (17:00)
--- NOTE | 2018-09-10 19:25 | CP.PCM.PN ---
Subjective - Date & Time of Evaluation Date of Evaluation: 09/10/18 Time of Evaluation: 08:00 - Subjective Subjective: seen on rounds less sob Objective - Vital Signs/Intake and Output Vital Signs (last 24 hours): Temp Pulse Resp BP Pulse Ox 97.8 F 74 20 130/82 95 09/10/18 07:12 09/10/18 16:00 09/10/18 07:12 09/10/18 17:24 09/10/18 07:12 - Medications Medications: Current Medications Albuterol/Ipratropium (Duoneb 3 Mg/0.5 Mg (3 Ml) Ud) 3 ml INH RQ6 [facility] Last Admin: 09/10/18 13:33 Dose: 3 ml Amlodipine Besylate (Norvasc) 10 mg PO DAILY [facility] Last Admin: 09/10/18 09:17 Dose: 10 mg Aspirin (Aspirin Chewable) 81 mg PO DAILY [facility] Last Admin: 09/10/18 09:16 Dose: 81 mg Calcium Acetate (Phoslo) 1,334 mg PO TIDCC [facility] Last Admin: 09/10/18 17:24 Dose: 1,334 mg Carvedilol (Coreg) 25 mg PO BID [facility] Last Admin: 09/10/18 17:24 Dose: 25 mg Epoetin Salvador (Procrit) 10,000 unit IV TTS [facility] Famotidine (Pepcid) 20 mg PO DAILY [facility] Last Admin: 09/10/18 09:16 Dose: 20 mg Cefepime HCl (Maxipime Iv 1 Gm Premix) 1 gm in 50 mls @ 100 mls/hr IVPB Q24H [facility]; Protocol Last Admin: 09/10/18 11:05 Dose: 100 mls/hr Azithromycin 500 mg/ Sodium (Chloride) 250 mls @ 250 mls/hr IVPB Q24H [facility]; Protocol Last Admin: 09/10/18 17:00 Dose: 250 mls/hr Latanoprost (Xalatan Opht) 0 ml OU HS [facility] Last Admin: 09/09/18 21:45 Dose: 2.5 ml Losartan Potassium (Cozaar) 50 mg PO DAILY [facility] Last Admin: 09/10/18 09:16 Dose: 50 mg Oseltamivir Phosphate (Tamiflu Susp) 30 mg PO BID [facility]; Protocol Stop: 09/12/18 13:43 Last Admin: 09/10/18 17:23 Dose: 30 mg - Labs Labs: 09/10/18 07:21 09/10/18 07:21 - Constitutional Appears: Well - Head Exam Head Exam: ATRAUMATIC, NORMAL INSPECTION, NORMOCEPHALIC - Eye Exam Eye Exam: EOMI, Normal appearance, PERRL Pupil Exam: NORMAL ACCOMODATION, PERRL - ENT Exam ENT Exam: Mucous Membranes Moist, Normal Exam - Neck Exam Neck Exam: Full ROM, Normal Inspection. absent: Lymphadenopathy - Respiratory Exam Respiratory Exam: Clear to Ausculation Bilateral, NORMAL BREATHING PATTERN - Cardiovascular Exam Cardiovascular Exam: REGULAR RHYTHM, +S1, +S2. absent: Murmur - GI/Abdominal Exam GI & Abdominal Exam: Soft, Normal Bowel Sounds. absent: Tenderness - Rectal Exam Rectal Exam: Deferred - Exam Exam: NORMAL INSPECTION - Extremities Exam Extremities Exam: Full ROM, Normal Capillary Refill, Normal Inspection. absent: Joint Swelling, Pedal Edema - Back Exam Back Exam: NORMAL INSPECTION - Neurological Exam Neurological Exam: Alert, Awake, CN II-XII Intact, Normal Gait, Oriented x3 - Psychiatric Exam Psychiatric exam: Normal Affect, Normal Mood - Skin Skin Exam: Dry, Intact, Normal Color, Warm Assessment and Plan (1) Dyspnea Status: Acute (2) ESRD (end stage renal disease) on dialysis Status: Acute (3) Failed kidney transplant Status: Acute (4) Pneumonia Status: Acute (5) Pulmonary edema Status: Acute (6) CHF (congestive heart failure) Status: Acute (7) Chronic renal allograft nephropathy Status: Acute (8) Diabetes mellitus type 2 in nonobese Status: Acute (9) Electrolyte imbalance Status: Acute (10) Fluid overload Status: Acute (11) HTN (hypertension) Status: Acute - Assessment and Plan (Free Text) Assessment: renew iv rx
[2018-09-10] MEDS: Latanoprost 2.5 ml Opht Soln OU SCH (22:01)
[2018-09-11] MEDS: Albuterol-Ipratrop 3 mg / 0.5 (3 ml) UD INH SCH ×4 (02:28→21:12)
[2018-09-11 07:19] LABS: HEMOGLOBIN 8.3 g/dL (12.0-18.0); MEAN CORPUSCULAR HEMOGLOBIN 28.4 pg (27.0-31.0); MEAN CORPUSCULAR HGB CONC 33.8 g/dL (33.0-37.0); MEAN PLATELET VOLUME 7.2 fL (7.2-11.7); RBC 2.92 Mil/uL (4.40-5.90); RED CELL DISTRIBUTION WIDTH 17.9 % (11.5-14.5); WHITE BLOOD COUNT 4.7 K/uL (4.8-10.8)
[2018-09-11 08:27] LABS: ALB/GLOB RATIO 1.5 (1.0-2.1); CALCIUM 9.4 mg/dl (8.6-10.4)
--- NOTE | 2018-09-11 09:45 | CP.PCM.PN ---
Subjective - Date & Time of Evaluation Date of Evaluation: 09/11/18 Time of Evaluation: 09:42 - Subjective Subjective: Notes reviewed Feels well overall In isolation room Dialysis planned today Cough minimal, no sob 10 point ros negative other than above Objective - Vital Signs/Intake and Output Vital Signs (last 24 hours): Temp Pulse Resp BP Pulse Ox 97.4 F L 70 20 119/55 L 95 09/11/18 07:30 09/11/18 07:30 09/11/18 07:30 09/11/18 07:30 09/11/18 07:30 - Medications Medications: Current Medications Albuterol/Ipratropium (Duoneb 3 Mg/0.5 Mg (3 Ml) Ud) 3 ml INH RQ6 [facility] Last Admin: 09/11/18 02:28 Dose: 3 ml Amlodipine Besylate (Norvasc) 10 mg PO DAILY [facility] Last Admin: 09/10/18 09:17 Dose: 10 mg Aspirin (Aspirin Chewable) 81 mg PO DAILY [facility] Last Admin: 09/10/18 09:16 Dose: 81 mg Calcium Acetate (Phoslo) 1,334 mg PO TIDCC [facility] Last Admin: 09/10/18 17:24 Dose: 1,334 mg Carvedilol (Coreg) 25 mg PO BID [facility] Last Admin: 09/10/18 17:24 Dose: 25 mg Epoetin Salvador (Procrit) 10,000 unit IV TTS [facility] Famotidine (Pepcid) 20 mg PO DAILY [facility] Last Admin: 09/10/18 09:16 Dose: 20 mg Cefepime HCl (Maxipime Iv 1 Gm Premix) 1 gm in 50 mls @ 100 mls/hr IVPB Q24H [facility]; Protocol Last Admin: 09/10/18 11:05 Dose: 100 mls/hr Azithromycin 500 mg/ Sodium (Chloride) 250 mls @ 250 mls/hr IVPB Q24H [facility]; Protocol Last Admin: 09/10/18 17:00 Dose: 250 mls/hr Latanoprost (Xalatan Opht) 0 ml OU HS [facility] Last Admin: 09/10/18 22:01 Dose: 2.5 ml Losartan Potassium (Cozaar) 50 mg PO DAILY [facility] Last Admin: 09/10/18 09:16 Dose: 50 mg Oseltamivir Phosphate (Tamiflu Susp) 30 mg PO BID [facility]; Protocol Stop: 09/12/18 13:43 Last Admin: 09/10/18 17:23 Dose: 30 mg - Labs Labs: 09/11/18 07:03 09/11/18 07:03 - Constitutional Appears: Non-toxic, No Acute Distress - Head Exam Head Exam: ATRAUMATIC, NORMAL INSPECTION - Eye Exam Eye Exam: EOMI, Normal appearance - ENT Exam ENT Exam: Mucous Membranes Moist, Normal Oropharynx - Neck Exam Neck Exam: absent: Lymphadenopathy, Thyromegaly - Respiratory Exam Respiratory Exam: Rales, Rhonchi. absent: Wheezes - Cardiovascular Exam Cardiovascular Exam: +S1, +S2. absent: Rubs - GI/Abdominal Exam GI & Abdominal Exam: Soft, Normal Bowel Sounds - Extremities Exam Extremities Exam: absent: Pedal Edema, Tenderness - Neurological Exam Neurological Exam: Alert, Awake Assessment and Plan (1) ESRD (end stage renal disease) on dialysis Status: Acute (2) Failed kidney transplant Status: Acute (3) Pneumonia Status: Acute (4) CHF (congestive heart failure) Status: Acute (5) HTN (hypertension) Status: Acute - Assessment and Plan (Free Text) Assessment: Dialysis today JOVANI with dialysis UF as tolerated Discussed with dialysis nursing staff Abx/antivirals as ordered by ID
[2018-09-11] MEDS: Epoetin Alfa 10,000 unit/ml Dialysis IV SCH (11:00)
[2018-09-11] MEDS: Oseltamivir 6 MG/ML PO SCH ×2 (11:37→17:54)
[2018-09-11] MEDS: Cefepime IV 1 gm in Dextrose 1 GM/50 ML BAG IVPB SCH (14:25)
--- NOTE | 2018-09-11 16:46 | PN ---
DATE: 09/11/2018 SUBJECTIVE: I saw him in dialysis this morning. He is alert right away. He is comfortable and much more alert mentally. He is on aspirin, Zithromax, Coreg, Cozaar, DuoNebs, Maxipime, Norvasc, Pepcid, PhosLo, Procrit, Tamiflu, and Xalatan. He has no chest pain, shortness of breath, no abdominal pain, well coherent. PHYSICAL EXAMINATION: VITAL SIGNS: 97.5 temp, 75 pulse, 135/82 blood pressure, 18 respiratory rate, 98% O2 sat on room air. HEENT: Head is atraumatic, normocephalic. HEART: Regular rate. LUNGS: Decreased breath sounds, but clear. ABDOMEN: Soft. EXTREMITIES: No edema. MEDICATIONS: He is currently on aspirin, azithromycin, Coreg, Cozaar, DuoNebs, Maxipime, Norvasc, Pepcid, PhosLo, Procrit, Tamiflu, and Xalatan. LABORATORY DATA: He has a 4.7 white count, 8.3 hemoglobin, 24.5 hematocrit with 206 platelets. He has a 134 sodium, potassium 4.6, BUN 68, creatinine 11.3, on dialysis. Sugar is 129, calcium is 9.4. Total bilirubin is 0.4, AST is 27, ALT is 31, alk phos 60, total protein 6.7. He also had positive for influenza and positive for mycoplasma pneumoniae. ASSESSMENT AND PLAN: He is being seen by Infectious Disease, Pulmonology, Renal, and Cardiology. He will finish with the intravenous antibiotics. We will discharge him home, needs physical therapy also, and I do see improvement with him, and we will continue aggressive treatment and care on Shanna Rodrigez who has got pneumonia and flu. Jim Paulino DO [facility]
[2018-09-11] MEDS: Azithromycin 500 MG in Sodium Chloride 0.9% 250 ML IVPB SCH (17:00)
--- NOTE | 2018-09-11 17:16 | CP.PCM.PN ---
Subjective - Date & Time of Evaluation Date of Evaluation: 09/11/18 Time of Evaluation: 16:00 - Subjective Subjective: Patient seen and examined Cough and shortness of breath much improved Afebrile Continue treatment for mycoplasma pneumonia Can be discharged home on p.o. azithromycin Follow-up chest x-ray Objective - Vital Signs/Intake and Output Vital Signs (last 24 hours): Temp Pulse Resp BP Pulse Ox 97.7 F 76 18 147/83 95 09/11/18 14:04 09/11/18 14:04 09/11/18 14:04 09/11/18 14:04 09/11/18 14:04 - Medications Medications: Current Medications Albuterol/Ipratropium (Duoneb 3 Mg/0.5 Mg (3 Ml) Ud) 3 ml INH RQ6 [facility] Last Admin: 09/11/18 14:34 Dose: Not Given Amlodipine Besylate (Norvasc) 10 mg PO DAILY [facility] Last Admin: 09/11/18 14:20 Dose: 10 mg Aspirin (Aspirin Chewable) 81 mg PO DAILY [facility] Last Admin: 09/11/18 14:19 Dose: 81 mg Calcium Acetate (Phoslo) 1,334 mg PO TIDCC [facility] Last Admin: 09/11/18 14:19 Dose: 1,334 mg Carvedilol (Coreg) 25 mg PO BID [facility] Last Admin: 09/11/18 11:37 Dose: Not Given Epoetin Salvador (Procrit) 10,000 unit IV TTS [facility] Last Admin: 09/11/18 11:00 Dose: 10,000 unit Famotidine (Pepcid) 20 mg PO DAILY [facility] Last Admin: 09/11/18 14:19 Dose: 20 mg Cefepime HCl (Maxipime Iv 1 Gm Premix) 1 gm in 50 mls @ 100 mls/hr IVPB Q24H [facility]; Protocol Last Admin: 09/11/18 14:25 Dose: 100 mls/hr Azithromycin 500 mg/ Sodium (Chloride) 250 mls @ 250 mls/hr IVPB Q24H [facility]; Protocol Last Admin: 09/10/18 17:00 Dose: 250 mls/hr Latanoprost (Xalatan Opht) 0 ml OU HS [facility] Last Admin: 09/10/18 22:01 Dose: 2.5 ml Losartan Potassium (Cozaar) 50 mg PO DAILY [facility] Last Admin: 09/11/18 14:19 Dose: 50 mg Oseltamivir Phosphate (Tamiflu Susp) 30 mg PO BID [facility]; Protocol Stop: 09/12/18 13:43 Last Admin: 09/11/18 11:37 Dose: Not Given - Labs Labs: 09/11/18 07:03 09/11/18 07:03 Assessment and Plan (1) Pneumonia Status: Acute (2) ESRD (end stage renal disease) on dialysis Status: Acute (3) Pulmonary edema Status: Acute
[2018-09-11] MEDS: Latanoprost 2.5 ml Opht Soln OU SCH (22:13)
[2018-09-12] MEDS: Albuterol-Ipratrop 3 mg / 0.5 (3 ml) UD INH SCH ×3 (01:35→14:31)
[2018-09-12 08:18] LABS: HEMOGLOBIN 8.8 g/dL (12.0-18.0); MEAN CELL VOLUME 84.4 fL (80.0-94.0); MEAN CORPUSCULAR HEMOGLOBIN 28.2 pg (27.0-31.0); MEAN CORPUSCULAR HGB CONC 33.4 g/dL (33.0-37.0); MEAN PLATELET VOLUME 7.1 fL (7.2-11.7); RBC 3.13 Mil/uL (4.40-5.90); RED CELL DISTRIBUTION WIDTH 17.2 % (11.5-14.5); WHITE BLOOD COUNT 4.8 K/uL (4.8-10.8)
[2018-09-12 08:53] LABS: ALB/GLOB RATIO 1.4 (1.0-2.1); CALCIUM 9.9 mg/dl (8.6-10.4)
--- NOTE | 2018-09-12 09:38 | CP.PCM.PN ---
Subjective - Date & Time of Evaluation Date of Evaluation: 09/11/18 Time of Evaluation: 10:00 - Subjective Subjective: continue to do well HD in progress lying flat comfortably Objective - Vital Signs/Intake and Output Vital Signs (last 24 hours): Temp Pulse Resp BP Pulse Ox 98.1 F 73 20 144/83 98 09/12/18 07:00 09/12/18 07:00 09/12/18 07:00 09/12/18 07:00 09/12/18 07:00 - Medications Medications: Current Medications Albuterol/Ipratropium (Duoneb 3 Mg/0.5 Mg (3 Ml) Ud) 3 ml INH RQ6 [facility] Last Admin: 09/12/18 09:08 Dose: 3 ml Amlodipine Besylate (Norvasc) 10 mg PO DAILY [facility] Last Admin: 09/11/18 14:20 Dose: 10 mg Aspirin (Aspirin Chewable) 81 mg PO DAILY [facility] Last Admin: 09/12/18 09:33 Dose: 81 mg Calcium Acetate (Phoslo) 1,334 mg PO TIDCC [facility] Last Admin: 09/11/18 17:53 Dose: 1,334 mg Carvedilol (Coreg) 25 mg PO BID [facility] Last Admin: 09/11/18 17:54 Dose: 25 mg Epoetin Salvador (Procrit) 10,000 unit IV TTS [facility] Last Admin: 09/11/18 11:00 Dose: 10,000 unit Famotidine (Pepcid) 20 mg PO DAILY [facility] Last Admin: 09/11/18 14:19 Dose: 20 mg Cefepime HCl (Maxipime Iv 1 Gm Premix) 1 gm in 50 mls @ 100 mls/hr IVPB Q24H [facility]; Protocol Last Admin: 09/11/18 14:25 Dose: 100 mls/hr Azithromycin 500 mg/ Sodium (Chloride) 250 mls @ 250 mls/hr IVPB Q24H [facility]; Protocol Last Admin: 09/11/18 17:00 Dose: 250 mls/hr Latanoprost (Xalatan Opht) 0 ml OU HS [facility] Last Admin: 09/11/18 22:13 Dose: 2.5 ml Losartan Potassium (Cozaar) 50 mg PO DAILY [facility] Last Admin: 09/11/18 14:19 Dose: 50 mg Oseltamivir Phosphate (Tamiflu Susp) 30 mg PO BID [facility]; Protocol Stop: 09/12/18 13:43 Last Admin: 09/11/18 17:54 Dose: 30 mg - Labs Labs: 09/12/18 07:01 09/12/18 07:01 - Constitutional Appears: Non-toxic - Eye Exam Eye Exam: absent: Scleral icterus - ENT Exam ENT Exam: Mucous Membranes Moist - Neck Exam Neck Exam: Full ROM - Respiratory Exam Respiratory Exam: Decreased Breath Sounds - Cardiovascular Exam Cardiovascular Exam: REGULAR RHYTHM - GI/Abdominal Exam GI & Abdominal Exam: Soft - Extremities Exam Extremities Exam: Pedal Edema Assessment and Plan - Assessment and Plan (Free Text) Assessment: CHF, compensated ESRD Hx of failed transplant HTN Plan: Cont meds Cont hemodialysis
[2018-09-12] MEDS: Oseltamivir 6 MG/ML PO SCH (09:41)
--- NOTE | 2018-09-12 09:44 | CP.PCM.PN ---
Subjective - Date & Time of Evaluation Date of Evaluation: 09/10/18 Time of Evaluation: 08:00 - Subjective Subjective: continue to feel better on a daily basis no chest pain, no sob + Influenza A with concommittant Mycoplasma pneumonia Objective - Vital Signs/Intake and Output Vital Signs (last 24 hours): Temp Pulse Resp BP Pulse Ox 98.1 F 73 20 144/83 98 09/12/18 07:00 09/12/18 07:00 09/12/18 07:00 09/12/18 09:37 09/12/18 07:00 - Medications Medications: Current Medications Albuterol/Ipratropium (Duoneb 3 Mg/0.5 Mg (3 Ml) Ud) 3 ml INH RQ6 [facility] Last Admin: 09/12/18 09:08 Dose: 3 ml Amlodipine Besylate (Norvasc) 10 mg PO DAILY [facility] Last Admin: 09/12/18 09:36 Dose: 10 mg Aspirin (Aspirin Chewable) 81 mg PO DAILY [facility] Last Admin: 09/12/18 09:33 Dose: 81 mg Calcium Acetate (Phoslo) 1,334 mg PO TIDCC [facility] Last Admin: 09/12/18 09:35 Dose: 1,334 mg Carvedilol (Coreg) 25 mg PO BID [facility] Last Admin: 09/12/18 09:37 Dose: 25 mg Epoetin Salvador (Procrit) 10,000 unit IV TTS [facility] Last Admin: 09/11/18 11:00 Dose: 10,000 unit Famotidine (Pepcid) 20 mg PO DAILY [facility] Last Admin: 09/12/18 09:37 Dose: 20 mg Cefepime HCl (Maxipime Iv 1 Gm Premix) 1 gm in 50 mls @ 100 mls/hr IVPB Q24H [facility]; Protocol Last Admin: 09/11/18 14:25 Dose: 100 mls/hr Azithromycin 500 mg/ Sodium (Chloride) 250 mls @ 250 mls/hr IVPB Q24H [facility]; Protocol Last Admin: 09/11/18 17:00 Dose: 250 mls/hr Latanoprost (Xalatan Opht) 0 ml OU HS [facility] Last Admin: 09/11/18 22:13 Dose: 2.5 ml Losartan Potassium (Cozaar) 50 mg PO DAILY [facility] Last Admin: 09/12/18 09:37 Dose: 50 mg Oseltamivir Phosphate (Tamiflu Susp) 30 mg PO BID [facility]; Protocol Stop: 09/12/18 13:43 Last Admin: 09/11/18 17:54 Dose: 30 mg - Labs Labs: 09/12/18 07:01 09/12/18 07:01 - Constitutional Appears: Non-toxic - Eye Exam Eye Exam: absent: Scleral icterus - Neck Exam Neck Exam: Full ROM - Respiratory Exam Respiratory Exam: NORMAL BREATHING PATTERN - Cardiovascular Exam Cardiovascular Exam: REGULAR RHYTHM - GI/Abdominal Exam GI & Abdominal Exam: Soft - Extremities Exam Extremities Exam: absent: Pedal Edema Assessment and Plan - Assessment and Plan (Free Text) Assessment: Pneumonia CHF, compensated ESRD Failed Kidney transplant Plan: Cont Abtx HD as per renal ID/pulmonary follow up
--- NOTE | 2018-09-12 09:57 | CP.PCM.PN ---
Subjective - Date & Time of Evaluation Date of Evaluation: 09/08/18 Time of Evaluation: 09:00 - Subjective Subjective: breathing better ECHO- pending + flu A Objective - Vital Signs/Intake and Output Vital Signs (last 24 hours): Temp Pulse Resp BP Pulse Ox 98.1 F 73 20 144/83 98 09/12/18 07:00 09/12/18 07:00 09/12/18 07:00 09/12/18 09:37 09/12/18 07:00 - Medications Medications: Current Medications Albuterol/Ipratropium (Duoneb 3 Mg/0.5 Mg (3 Ml) Ud) 3 ml INH RQ6 [facility] Last Admin: 09/12/18 09:08 Dose: 3 ml Amlodipine Besylate (Norvasc) 10 mg PO DAILY [facility] Last Admin: 09/12/18 09:36 Dose: 10 mg Aspirin (Aspirin Chewable) 81 mg PO DAILY [facility] Last Admin: 09/12/18 09:33 Dose: 81 mg Calcium Acetate (Phoslo) 1,334 mg PO TIDCC [facility] Last Admin: 09/12/18 09:35 Dose: 1,334 mg Carvedilol (Coreg) 25 mg PO BID [facility] Last Admin: 09/12/18 09:37 Dose: 25 mg Epoetin Salvador (Procrit) 10,000 unit IV TTS [facility] Last Admin: 09/11/18 11:00 Dose: 10,000 unit Famotidine (Pepcid) 20 mg PO DAILY [facility] Last Admin: 09/12/18 09:37 Dose: 20 mg Cefepime HCl (Maxipime Iv 1 Gm Premix) 1 gm in 50 mls @ 100 mls/hr IVPB Q24H [facility]; Protocol Last Admin: 09/11/18 14:25 Dose: 100 mls/hr Azithromycin 500 mg/ Sodium (Chloride) 250 mls @ 250 mls/hr IVPB Q24H [facility]; Protocol Last Admin: 09/11/18 17:00 Dose: 250 mls/hr Latanoprost (Xalatan Opht) 0 ml OU HS [facility] Last Admin: 09/11/18 22:13 Dose: 2.5 ml Losartan Potassium (Cozaar) 50 mg PO DAILY [facility] Last Admin: 09/12/18 09:37 Dose: 50 mg Oseltamivir Phosphate (Tamiflu Susp) 30 mg PO BID [facility]; Protocol Stop: 09/12/18 13:43 Last Admin: 09/12/18 09:41 Dose: 30 mg - Labs Labs: 09/12/18 07:01 09/12/18 07:01 - Constitutional Appears: Non-toxic - Eye Exam Eye Exam: absent: Scleral icterus - ENT Exam ENT Exam: Mucous Membranes Moist - Neck Exam Neck Exam: Full ROM - Respiratory Exam Respiratory Exam: Rhonchi - Cardiovascular Exam Cardiovascular Exam: REGULAR RHYTHM - GI/Abdominal Exam GI & Abdominal Exam: Soft - Extremities Exam Extremities Exam: Pedal Edema Assessment and Plan - Assessment and Plan (Free Text) Assessment: Pneumonia +Flu A Fluid overload ESRD Hx of Failed kidney transplant Plan: Cont meds ABtx as per ID Pulmonary follow up with Dr Parks HD
--- NOTE | 2018-09-12 13:45 | CP.PCM.PN ---
Subjective - Date & Time of Evaluation Date of Evaluation: 09/12/18 Time of Evaluation: 13:45 - Subjective Subjective: Pulmonary Consult, Covering Dr Parks The Patient was seen and examined at the bedside, Medical records reviewed, and management issues were discussed and formulated with the house staff. Events reviewed Objective - Vital Signs/Intake and Output Vital Signs (last 24 hours): Temp Pulse Resp BP Pulse Ox 98.1 F 73 20 144/83 98 09/12/18 07:00 09/12/18 07:00 09/12/18 07:00 09/12/18 09:37 09/12/18 07:00 - Medications Medications: Current Medications Albuterol/Ipratropium (Duoneb 3 Mg/0.5 Mg (3 Ml) Ud) 3 ml INH RQ6 [facility] Last Admin: 09/12/18 09:08 Dose: 3 ml Amlodipine Besylate (Norvasc) 10 mg PO DAILY [facility] Last Admin: 09/12/18 09:36 Dose: 10 mg Aspirin (Aspirin Chewable) 81 mg PO DAILY [facility] Last Admin: 09/12/18 09:33 Dose: 81 mg Calcium Acetate (Phoslo) 1,334 mg PO TIDCC [facility] Last Admin: 09/12/18 09:35 Dose: 1,334 mg Carvedilol (Coreg) 25 mg PO BID [facility] Last Admin: 09/12/18 09:37 Dose: 25 mg Epoetin Salvador (Procrit) 10,000 unit IV TTS [facility] Last Admin: 09/11/18 11:00 Dose: 10,000 unit Famotidine (Pepcid) 20 mg PO DAILY [facility] Last Admin: 09/12/18 09:37 Dose: 20 mg Cefepime HCl (Maxipime Iv 1 Gm Premix) 1 gm in 50 mls @ 100 mls/hr IVPB Q24H [facility]; Protocol Last Admin: 09/11/18 14:25 Dose: 100 mls/hr Azithromycin 500 mg/ Sodium (Chloride) 250 mls @ 250 mls/hr IVPB Q24H [facility]; Protocol Last Admin: 09/11/18 17:00 Dose: 250 mls/hr Latanoprost (Xalatan Opht) 0 ml OU HS [facility] Last Admin: 09/11/18 22:13 Dose: 2.5 ml Losartan Potassium (Cozaar) 50 mg PO DAILY [facility] Last Admin: 09/12/18 09:37 Dose: 50 mg - Labs Labs: 09/12/18 07:01 09/12/18 07:01
[2018-09-12] MEDS: Cefepime IV 1 gm in Dextrose 1 GM/50 ML BAG IVPB SCH (14:21)
[2018-09-12] MEDS: Azithromycin 500 MG in Sodium Chloride 0.9% 250 ML IVPB SCH (17:09)
--- NOTE | 2018-09-12 18:37 | PN ---
DATE: 09/12/2018 SUBJECTIVE: He is doing much better. He is on aspirin, cefepime, Coreg, Cozaar, DuoNebs, Kayexalate, Norvasc, Pepcid, PhosLo, Procrit, Tamiflu, and Zithromax. He is much better, I will change it to Zithromax tomorrow. PHYSICAL EXAMINATION: VITAL SIGNS: He is 98.1 temp, 78 pulse, 144/83 blood pressure, 20 respiratory rate, 98% O2 sat nasal canula. HEENT: Head is atraumatic, normocephalic. HEART: Regular rate. LUNGS: Clear to auscultation. Decreased breath sounds. ABDOMEN: Soft. EXTREMITIES: No edema. He gets dialysis for end stage renal disease. I believe his mother is in the hospital right now, is the caregiver and takes care of him, homemaker. I am hoping that we will get him to TCU at [facility] first before he goes home and hopefully by Thursday, he will be home, where he has homemakers to help him for a little bit of time during the day. LABORATORY DATA: He has a 4.8 white count, 8.8 hemoglobin, 26.4 hematocrit with 231 platelets. He has a 134 sodium, potassium 4.8, BUN 43, creatinine 9.3, on dialysis. GFR is 6. Sugar is 101, sugar is 89 also, calcium is 5.9. Total bilirubin is 0.4, AST is 22, ALT is 20, alk phos 55, total protein 6.7. UA positive for the flu and mycoplasma. ASSESSMENT AND PLAN: He is on good antibiotics, we will change him to p.o. tomorrow. I am hoping also to get him to transitional care center at [facility] tomorrow hopefully home to his mother and caregiver/homemaker. Jim Paulino DO MTDDesi
[2018-09-12] MEDS: Latanoprost 2.5 ml Opht Soln OU SCH (21:45)
[2018-09-13 08:03] LABS: HEMOGLOBIN 8.3 g/dL (12.0-18.0); MEAN CELL VOLUME 84.6 fL (80.0-94.0); MEAN CORPUSCULAR HEMOGLOBIN 28.2 pg (27.0-31.0); MEAN CORPUSCULAR HGB CONC 33.4 g/dL (33.0-37.0); MEAN PLATELET VOLUME 6.5 fL (7.2-11.7); RBC 2.93 Mil/uL (4.40-5.90); RED CELL DISTRIBUTION WIDTH 17.4 % (11.5-14.5); WHITE BLOOD COUNT 5.8 K/uL (4.8-10.8)
[2018-09-13 08:45] LABS: ALB/GLOB RATIO 1.5 (1.0-2.1); ALBUMIN 3.8 g/dL (3.5-5.0); CALCIUM 9.6 mg/dl (8.6-10.4)
[2018-09-13] MEDS: Epoetin Alfa 10,000 unit/ml Dialysis IV SCH (11:40)
--- NOTE | 2018-09-13 12:04 | CP.PCM.PN ---
Subjective - Date & Time of Evaluation Date of Evaluation: 09/13/18 Time of Evaluation: 12:01 - Subjective Subjective: Seen at dialysis; tolerating UF 2800ml mycoplasma pneumonia noted on rx with zithromax feels better overall possible discharge as per reports Hg lower- can be treated at outpt unit with ESAs and IV Fe Objective - Vital Signs/Intake and Output Vital Signs (last 24 hours): Temp Pulse Resp BP Pulse Ox 97.7 F 77 18 134/69 98 09/13/18 10:15 09/13/18 10:15 09/13/18 10:15 09/13/18 11:30 09/13/18 10:15 - Medications Medications: Current Medications Amlodipine Besylate (Norvasc) 10 mg PO DAILY [facility] Last Admin: 09/13/18 09:21 Dose: Not Given Aspirin (Aspirin Chewable) 81 mg PO DAILY [facility] Last Admin: 09/13/18 09:20 Dose: 81 mg Azithromycin (Zithromax) 500 mg PO DAILY [facility]; Protocol Calcium Acetate (Phoslo) 1,334 mg PO TIDCC [facility] Last Admin: 09/13/18 08:39 Dose: 1,334 mg Carvedilol (Coreg) 25 mg PO BID [facility] Last Admin: 09/13/18 09:20 Dose: 25 mg Epoetin Salvador (Procrit) 10,000 unit IV TTS [facility] Last Admin: 09/13/18 11:40 Dose: 10,000 unit Famotidine (Pepcid) 20 mg PO DAILY [facility] Last Admin: 09/13/18 09:20 Dose: 20 mg Latanoprost (Xalatan Opht) 0 ml OU HS [facility] Last Admin: 09/12/18 21:45 Dose: 2.5 ml Losartan Potassium (Cozaar) 50 mg PO DAILY [facility] Last Admin: 09/13/18 09:21 Dose: 50 mg - Labs Labs: 09/13/18 07:55 09/13/18 07:55 - Constitutional Appears: No Acute Distress, Chronically Ill - Head Exam Head Exam: NORMAL INSPECTION - Eye Exam Eye Exam: EOMI, Normal appearance - Neck Exam Neck Exam: Normal Inspection. absent: Tenderness - Respiratory Exam Respiratory Exam: Clear to Ausculation Bilateral, NORMAL BREATHING PATTERN - Cardiovascular Exam Cardiovascular Exam: REGULAR RHYTHM, +S1 - GI/Abdominal Exam GI & Abdominal Exam: Soft. absent: Tenderness - Extremities Exam Extremities Exam: Normal Inspection. absent: Tenderness - Neurological Exam Neurological Exam: Awake, CN II-XII Intact - Skin Skin Exam: Dry, Warm Assessment and Plan (1) Failed kidney transplant Status: Acute (2) ESRD (end stage renal disease) on dialysis Status: Acute (3) CHF (congestive heart failure) Status: Acute (4) Diabetes mellitus type 2 in nonobese Status: Acute (5) HTN (hypertension) Status: Acute (6) Pneumonia Status: Acute - Assessment and Plan (Free Text) Plan: same dialysis with adequate UF rx with po zithromax continue ESAs, can add IV Fe as outpatient
[2018-09-13 16:40] VITALS: PULSE 81
[2018-09-13 17:22] VITALS: BP 153/88; RESP 20; TEMP 98.1; O2SAT 100
--- NOTE | 2018-09-13 18:23 | CP.PCM.PN ---
Subjective - Date & Time of Evaluation Date of Evaluation: 09/13/18 Time of Evaluation: 11:00 - Subjective Subjective: Patient seen and examined s/p dialysis Alert, awake, No acute distress Denies fevers, chest pain, SOB, cough Patient is improving clinically Afebrile Patient is clinically stable from Pulmonology Physical Exam Oxygen Saturation 98% Room General: NAD Cardio: S1, S2 Resp: Decreased breath sounds Abd: Soft, Nontender A/P 1) Pneumonia -Clinically stable for D/c with Azithromycin Objective - Vital Signs/Intake and Output Vital Signs (last 24 hours): Temp Pulse Resp BP Pulse Ox 98.1 F 81 20 153/88 H 100 09/13/18 15:30 09/13/18 16:00 09/13/18 15:30 09/13/18 15:30 09/13/18 15:30 - Labs Labs: 09/13/18 07:55 09/13/18 07:55 Assessment and Plan (1) Pneumonia Status: Acute (2) ESRD (end stage renal disease) on dialysis Status: Acute (3) Pulmonary edema Status: Acute
--- NOTE | 2018-09-14 05:35 | DS ---
HISTORY OF PRESENT ILLNESS: He is doing quite well. He is feeling well. He is walking okay. He is going to get a dialysis this morning and then will be discharged home. As my plan, he will be on aspirin, Coreg, Cozaar, Nitro-Bid, Norvasc, Pepcid, PhosLo, Procrit as needed, Xalatan and Z-Nahum p.o. PHYSICAL EXAMINATION: VITAL SIGNS: He has 97.7 temperature, 84 pulse, 144/80 blood pressure, 20 respiratory rate, 96% O2 sat on room air. HEENT: Head is atraumatic, normocephalic. HEART: Regular rate. LUNGS: Decreased breath sounds, but clear. ABDOMEN: Soft, obese. EXTREMITIES: No edema. LABORATORY DATA: He has a 4.8 white count, 8.8 hemoglobin, 26.4 hematocrit with 231 platelets. A 134 sodium, potassium 4.8, BUN 42, creatinine 9.3, on dialysis, last blood sugar was 135, calcium is 9.9, total bilirubin is 0.4. AST is 22, ALT is 20, alkaline phosphatase 65, total protein is 6.7. ASSESSMENT AND PLAN: He had pneumonia, he had diabetes, he had a flu, end-stage renal disease on hemodialysis, and congestive heart disease. He is doing well. He should follow-up with me in the office this week. He should call in for the Jayne-Nahum as the pharmacy called me for the same meds. Jim Paulino DO
--- NOTE | 2018-09-14 08:39 | PCM.HF ---
Heart Failure Core Measure - Heart Failure Ejection Fraction: 40 % or Greater EDWIN Inhibitor Prescribed: Yes Beta-Anaya Prescribed: Carvedilol Angiotensin II Receptor Anaya Prescribed: No Contraindication/Reason for not providing: on edwin AnticoagulationTherapy for Atrial Fibrillation/Atrialflutter: No Contraindication/Reason for not providing: no hx of a fib Aldosterone Antagonist Prescribed: No Contraindication/Reason for not providing: ef>45 / ESRD Hydralazine Nitrate Prescribed: No Contraindication/Reason for not providing: EF>45 Implantable Cardioverter Defibrillator Therapy: No Contraindication/Reason for not providing: EF>45 Cardiac Resynchronization Therapy Prescribed: No Contraindication/Reason for not providing: EF>45 - Follow up Will be discharged to: Home Follow Up Date (must be within 7 days from discharge): 09/17/18 Follow Up Time: 09:00
== END 2018-09-13 17:26 | disposition home or self-care (01) | DRG 193 ==
LOC: C.ER 07:56 → C.9E 08:30 → C.6T 14:13
PROVIDERS: ADMIT Family Medicine; ATTEND Family Medicine
PROC: 5A09557 Assistance with Respiratory Ventilation, Greater than 96 Consecutive Hours, Continuous Positive Airway Pressure (ICD-10-PCS; principal; 2018-09-06)
PROC: 5A1D70Z Performance of Urinary Filtration, Intermittent, Less than 6 Hours Per Day (ICD-10-PCS; 2018-09-06)
PROC: 5A1D70Z Performance of Urinary Filtration, Intermittent, Less than 6 Hours Per Day (ICD-10-PCS; 2018-09-07)
PROC: 5A1D70Z Performance of Urinary Filtration, Intermittent, Less than 6 Hours Per Day (ICD-10-PCS; 2018-09-09)
PROC: 5A1D70Z Performance of Urinary Filtration, Intermittent, Less than 6 Hours Per Day (ICD-10-PCS; 2018-09-11)
PROC: 5A1D70Z Performance of Urinary Filtration, Intermittent, Less than 6 Hours Per Day (ICD-10-PCS; 2018-09-13)
DX: J10.08 Influenza due to other identified influenza virus with other specified pneumonia (principal); J15.7 Pneumonia due to Mycoplasma pneumoniae; J96.00 Acute respiratory failure, unspecified whether with hypoxia or hypercapnia; N18.6 End stage renal disease; I13.2 Hypertensive heart and chronic kidney disease with heart failure and with stage 5 chronic kidney disease, or end stage renal disease; T86.12 Kidney transplant failure; J44.0 Chronic obstructive pulmonary disease with (acute) lower respiratory infection; E11.22 Type 2 diabetes mellitus with diabetic chronic kidney disease; E89.0 Postprocedural hypothyroidism; I50.9 Heart failure, unspecified; E11.649 Type 2 diabetes mellitus with hypoglycemia without coma; I77.819 Aortic ectasia, unspecified site; H40.9 Unspecified glaucoma; Y83.0 Surgical operation with transplant of whole organ as the cause of abnormal reaction of the patient, or of later complication, without mention of misadventure at the time of the procedure; Z99.2 Dependence on renal dialysis; Z87.01 Personal history of pneumonia (recurrent); Z86.010 Personal history of colon polyps; Z79.82 Long term (current) use of aspirin

== ENCOUNTER 2018-09-23 17:26 | Inpatient (IN) | payer MEDICARE, OTHER ==
[2018-09-23 17:27] VITALS: BMI 46.5
[2018-09-23 18:26] LABS: BASO # 0.1 K/uL (0.0-0.2); BASO % 0.9 % (0.0-2.0); EOS # 0.2 K/uL (0.0-0.7); EOS % 3.1 % (0.0-4.0); HEMOGLOBIN 8.2 g/dL (12.0-18.0); LYMPH # 0.7 K/uL (1.0-4.3); LYMPH % 11.1 % (20.0-40.0); MEAN CELL VOLUME 85.7 fL (80.0-94.0); MEAN CORPUSCULAR HEMOGLOBIN 28.2 pg (27.0-31.0); MEAN CORPUSCULAR HGB CONC 32.9 g/dL (33.0-37.0); MEAN PLATELET VOLUME 6.8 fL (7.2-11.7); MONO # 0.5 K/uL (0.0-0.8); MONO % 7.2 % (0.0-10.0); NEUT # 5.2 K/uL (1.8-7.0); NEUT % 77.7 % (50.0-75.0); RBC 2.9 Mil/uL (4.40-5.90); RED CELL DISTRIBUTION WIDTH 18.6 % (11.5-14.5); WHITE BLOOD COUNT 6.6 K/uL (4.8-10.8)
--- NOTE | 2018-09-23 18:47 | RAD ---
HISTORY: SOB COMPARISON: Chest x-ray performed 09/06/18 TECHNIQUE: Chest, one view. FINDINGS: LUNGS: Patchy confluent bilateral pulmonary airspace opacities persist, mild to moderately decreased in extent. PLEURA: No significant pleural effusion identified. No definite pneumothorax . CARDIOVASCULAR: Mild cardiomegaly. No significant atherosclerotic calcification present. OSSEOUS STRUCTURES: Degenerative changes. VISUALIZED UPPER ABDOMEN: Unremarkable. OTHER FINDINGS: None. IMPRESSION: Patchy confluent bilateral pulmonary airspace opacities persist, mild to moderately decreased in extent. Mild cardiomegaly.
[2018-09-23 18:57] LABS: ALB/GLOB RATIO 1.5 (1.0-2.1); ALBUMIN 4.3 g/dL (3.5-5.0); ALT/SGPT 13 U/L (21-72); AST/SGOT 19 U/L (17-59); B-TYPE NATRIURETIC PEPTIDE > 35000 pg/mL (0-900); BLOOD UREA NITROGEN 42 mg/dL (9-20); CALCIUM 9.6 mg/dl (8.6-10.4); GFR NON-AFRICAN AMERICAN 5
--- NOTE | 2018-09-23 19:14 | C.PDOC ---
History Of Present Illness 53 year old male presents with SOB more so after dialysis. Patient has m/w/f dialysis, yesterday had full dialysis. Denies cough or fever. Interrogatory difficult due to flat affect, patient seems to not be paying attention. Time Seen by Provider: 09/23/18 17:44 Chief Complaint (Nursing): Shortness Of Breath History Per: Patient History/Exam Limitations: no limitations Onset/Duration Of Symptoms: Days Current Symptoms Are (Timing): Still Present Current Respiratory Medications: See Home Med List Associated Symptoms: denies: Fever, Other (Cough) Recent travel outside of the [place]: No Past Medical History Reviewed: Historical Data, Nursing Documentation, Vital Signs Vital Signs: Last Vital Signs Temp 98.8 F 09/23/18 17:31 Pulse 95 H 09/23/18 18:41 Resp 31 H 09/23/18 18:41 BP 158/88 H 09/23/18 18:41 Pulse Ox 95 09/23/18 18:41 - Medical History PMH: Anemia, Arthritis, Asthma, COPD, Diabetes, Fractures (RIB, LEG, FOOT), HTN, Hypothyroidism, Pneumonia, End Stage Renal Disease, Chronic Kidney Disease Denies: Alzheimer's Disease, Atrial Fibrillation, Bronchitis, Cardia Arrhythmia, CHF, Dementia, Emphysema, Hypercholesterolemia, Kidney Stones, Migraine, Mitral Valve Prolapse, Multiple Sclerosis, Parkinson's Disease, Peripheral Edema, Pulmonary Embolism, Seizures, Sleep Apnea, TIA Surgical History: Denies: Pacemaker - [facility] Procedures (09/06/18) ASSISTANCE WITH RESPIRATORY VENTILATION, 24-96 HRS, CPAP (01/10/17) ASSISTANCE WITH RESPIRATORY VENTILATION, >96 HRS, CPAP (09/06/18) ENDOSC POLYPECTOMY OF LG INTEST (02/03/13) MEASURE OF CARDIAC SAMPL & PRESSURE, R HEART, PERC APPROACH (08/15/15) PERFORMANCE OF URINARY FILTRATION, MULTIPLE (01/10/17) PLAIN RADIOGRAPHY OF LEFT HEART USING OTHER CONTRAST (08/15/15) PLAIN RADIOGRAPHY OF MULT COR ART USING OTH CONTRAST (08/15/15) Family History: States: Unknown Family Hx - Social History Hx Tobacco Use: No Hx Alcohol Use: No Hx Substance Use: No - Immunization History Hx Tetanus Toxoid Vaccination: No Hx Influenza Vaccination: Yes (12/15/14) Hx Pneumococcal Vaccination: Yes (12/15/14) Review Of Systems Constitutional: Negative for: Fever, Chills Cardiovascular: Negative for: Chest Pain, Palpitations Respiratory: Positive for: Shortness of Breath. Negative for: Cough Gastrointestinal: Negative for: Nausea, Vomiting Neurological: Negative for: Weakness, Numbness Physical Exam - Physical Exam Appears: Non-toxic Skin: Normal Color, Warm Head: Atraumatic, Normacephalic Eye(s): bilateral: Normal Inspection Oral Mucosa: Moist Neck: Normal, Supple Chest: Symmetrical, No Tenderness Cardiovascular: Rhythm Regular Respiratory: Normal Breath Sounds, No Rales, No Rhonchi, No Wheezing Gastrointestinal/Abdominal: Soft, No Tenderness Extremity: No Pedal Edema Neurological/Psych: Oriented x3, Normal Speech ED Course And Treatment - Laboratory Results Result Diagrams: 09/23/18 18:14 09/23/18 18:14 Lab Results: Troponin I 0.0160 ng/mL (0.00-0.120) 09/23/18 18:14 NT-Pro-B Natriuret Pep > 52645 pg/mL (0-900) H 09/23/18 18:14 Total Bilirubin 0.8 mg/dL (0.2-1.3) 09/23/18 18:14 AST 19 U/L (17-59) 09/23/18 18:14 ALT 13 U/L (21-72) L D 09/23/18 18:14 Alkaline Phosphatase 74 U/L (38-126) 09/23/18 18:14 Total Protein 7.1 g/dL (6.3-8.3) 09/23/18 18:14 Albumin 4.3 g/dL (3.5-5.0) 09/23/18 18:14 Globulin 2.8 gm/dL (2.2-3.9) 09/23/18 18:14 Albumin/Globulin Ratio 1.5 (1.0-2.1) 09/23/18 18:14 Lab Interpretation: Abnormal (stable anemia hgb 8, ESRD on HD) O2 Sat by Pulse Oximetry: 95 Pulse Ox Interpretation: Normal - Radiology CXR: Interpreted by Me CXR Interpretation: Yes: No Acute Disease Reevaluation Time: 19:28 Reassessment Condition: Improved - Physician Consult Information Outcome Of Conversation: 1899: d/w Dr. Castro- pt's Personal Care Service Provider, ok to adm and tx PRBC's in AM. 1919: d/ wDr. Alejandra Zimmer, Medicine Md Physician Dermatologist- ok to admit. Medical Decision Making Medical Decision Making: chronic now symptomatic anemia hgb 8 poorly controlled HTN pt poor insight to Clonidine dosing BID/TID 0: d/w PMD, Dr. Jim Paulino, who referred pt to ED for eval and potential ADM as no CH PMD was noted, pt was admitted to Medicine Md Physician Dermatologist Dr. Paulino will alter admission and/or consult per his discretion Disposition Doctor Will See Patient In The: Hospital Counseled Patient/Family Regarding: Studies Performed, Diagnosis - Disposition Disposition: HOSPITALIZED Disposition Time: 19:29 Condition: GOOD - Clinical Impression Clinical Impression: Symptomatic anemia, ESRD (end stage renal disease) on dialysis - Scribe Statement The provider has reviewed the documentation as recorded by the Scriboneida Lang All medical record entries made by the Carltoniboneida were at my direction and personally dictated by me. I have reviewed the chart and agree that the record accurately reflects my personal performance of the history, physical exam, medical decision making, and the department course for this patient. I have also personally directed, reviewed, and agree with the discharge instructions and disposition.
[2018-09-24] MEDS ORDERED: Albuterol-Ipratrop 3 mg / 0.5 (3 ml) UD INH STA ×3 (00:09→22:48)
[2018-09-24 01:01] LABS: HEMOGLOBIN 7.7 g/dL (12.0-18.0); MEAN CELL VOLUME 85.5 fL (80.0-94.0); MEAN CORPUSCULAR HEMOGLOBIN 28.3 pg (27.0-31.0); MEAN CORPUSCULAR HGB CONC 33.2 g/dL (33.0-37.0); MEAN PLATELET VOLUME 6.6 fL (7.2-11.7); RBC 2.73 Mil/uL (4.40-5.90); RED CELL DISTRIBUTION WIDTH 18.9 % (11.5-14.5)
[2018-09-24 08:21] LABS: ALB/GLOB RATIO 1.7 (1.0-2.1); ALBUMIN 4.4 g/dL (3.5-5.0); CALCIUM 9.6 mg/dl (8.6-10.4)
[2018-09-24] MEDS ORDERED: PATIROMER CALCIUM SORBITEX PO SCH (10:00)
--- NOTE | 2018-09-24 10:05 | HP ---
HISTORY OF PRESENT ILLNESS: Known Shanna for years. He is a very nice man. He has got end-stage renal dialysis and he has been drinking a lot more water lately and I think he put himself into fluid overload. He is very short of breath. He has dialysis, hopefully, he will get it today. A 53-year-old man who has dialysis on Thursday, Thursday, and Thursday. He had full dialysis the other day. He then started to drink a lot of water, more than usual and he is now fluid overloaded I believe. He is short of breath. He has anemia, arthritis, asthma, COPD, diabetes, rib fractures, leg fractures, and foot fracture, hypertension, hypothyroid, pneumonia history, end-stage renal disease, on hemodialysis, chronic kidney disease. He has been on the ventilator before. He was on CPAP before. He had a polypectomy of the large intestine. He has urinary filtration. He has had left heart cath. SOCIAL HISTORY: Nonsmoker. Nondrinker. No drugs. IMMUNIZATIONS: Up-to-date with his immunizations. REVIEW OF SYSTEMS: He is short of breath. No acute vision or hearing changes. No chest pain. He is short of breath. No cough. No wheeze. No nausea, vomiting, constipation, diarrhea, no problems. His extremities are a little bit weak overall, but no numbness. Skin, that he could tell, is intact. PHYSICAL EXAMINATION: VITAL SIGNS: He has 98.8 temp, 95 pulse, 31 respiratory rate, 158/88 blood pressure, 95% O2 saturation. GENERAL: He is alert, on oxygen. He is talking to me. HEENT: Head is atraumatic, normocephalic. Extraocular muscles are intact. Throat is dry. NECK: Supple. HEART: Regular rate. LUNGS: Decreased breath sounds bilaterally. No wheezes, rhonchi, or rales at this time. ABDOMEN: Soft, nontender. Positive bowel sounds. No guarding. No rebound. No CVA tenderness. EXTREMITIES: There is trace edema. NEUROLOGICAL: Alert and oriented x3. Normal speech. SKIN: For that he could tell, is intact. No apparent rashes or ulcers. LYMPH: Thyroid midline. No palpable appreciable lymphadenopathy. LABORATORY DATA: He had multiple tests done. He has a 6 white count, 7.7 hemoglobin, 23.3 hematocrit, 153 platelets. He was transfused one unit during the dialysis. He has 137 sodium, potassium 4.8, BUN 42, creatinine 10.3, GFR 5. Sugar is 88. Lactic acid 0.6, calcium 9.6, total bili is 0.8, AST is 19, ALT is 13, alk phos is 74, troponin I is 0.116. BNP is very high at 35,000. Total protein is 7.1. Chest x-ray showed patchy complement bilateral pulmonary air space opacities persist, mild to moderate decrease in extent, mild cardiomegaly. ASSESSMENT AND PLAN: He had consults with Renal, Cardio, and Pulmonary. He will be on oxygen. Hopefully, he has dialysis today and take off the extra fluid. Continue with aggressive treatment and care. Significant for shortness of breath, fluid overload, history of end-stage renal disease with hemodialysis. Jim Paulino DO
[2018-09-24] MEDS ORDERED: Nitroglycerin 2% Ointment Foilpak UD TOP STA (10:34)
--- NOTE | 2018-09-24 10:36 | PCM.RRT ---
<Danielle Killian - Last Filed: 09/24/18 10:42> MARKETING INFORMATION COORDINATOR Nurses Assessment - Situation Date: 09/24/18 Time MARKETING INFORMATION COORDINATOR was called: 10:28 MARKETING INFORMATION COORDINATOR Responder Arrival Time:: 10:28 MARKETING INFORMATION COORDINATOR Location:: Med/Surg Room Number: 657-A MARKETING INFORMATION COORDINATOR Reason for Call: Looks Sicker MARKETING INFORMATION COORDINATOR Called By: RN - IV IV Inserted during MARKETING INFORMATION COORDINATOR?: No - Respiratory MARKETING INFORMATION COORDINATOR Delivery Method: Room Air, Face Mask @% Oxygen Flow Rate: 15 Received Nebulizer Treatments: Yes (Duoneb) Was the Patient Ventilated with Bag/Mask 100% O2?: No Secretions Suctioned?: No Was the Patient Intubated?: No Was the Patient Placed on a Ventilator?: No - Medication Medications Administered During MARKETING INFORMATION COORDINATOR: Lasix 20 IVP, nitro paste 1/2 inch - Diagnostic Test Ordered EKG: No Chest X-Ray: Yes CT Scan: No CPR started during MARKETING INFORMATION COORDINATOR?: No - Vital Signs Vital Signs: HR 103 BP 174/93 RR 30 spO2 90% RA--> 100% on O2 Temp 97.4 - Lana Coma Scale Coma Scale Eye Opening: Spontaneous Coma Scale Motor: Obeys Commands Movement Coma Scale Verbal: Oriented Coma Scale Total: 15 - Time MARKETING INFORMATION COORDINATOR Ended Time MARKETING INFORMATION COORDINATOR Ended: 11:10 - Vital Signs at end of MARKETING INFORMATION COORDINATOR Vital Signs at end of MARKETING INFORMATION COORDINATOR: HR 104 BP 179/95 RR 42 spO2 100% on 15 L - Recommendations 5) MARKETING INFORMATION COORDINATOR Level of Care Recommendations: Transfer to ICU Notifications: Attending Physician (Dr. Paulino), Consultations (Dr. Castro) I.Reason for MARKETING INFORMATION COORDINATOR - A) Acute Change in Patient: (Select all that apply): Acute change in respiratory rate less than 8 or greater than 28 Subjective: RN called MARKETING INFORMATION COORDINATOR for respiratory distress. Patient was admitted last night for shortness of breath. Patient has ESRD and is on HD MWF. He had his full dialysis session on Thursday. Patient was scheduled for HD later today. Upon arrival, patient is acutely SOB. He also complained of chest pain. Patient says that he produces a little bit of urine. He was saturating at 90% on RA. He was repositioned to sit up straighter. Lungs with significant rales. He was placed on 15 L of O2 and given stat Duoneb. Stat CXR done showed worsening of venous congestion. Patient was also given nitropaste to relieve discomfort and Lasix 20 mg IVP. ICU consulted and accepted the patient. Patient was transported to ICU and emergent HD started. - Neurological Status (Select all that apply): Alert, Responsive, Oriented, Verbal, Follows Commands - Respiratory Oxygen Delivery Method: Face Mask @% (15) Oxygen Flow Rate: 15 - Constitutional Appears: Non-toxic, No Acute Distress - Head Head Exam: ATRAUMATIC, NORMAL INSPECTION - Eyes Eye Exam: EOMI, Normal appearance - Respiratory Exam Respiratory Exam: Accessory Muscle Use, Rales, Respiratory Distress - Cardiovascular Exam Cardiovascular Exam: Tachycardia - GI/Abdominal Exam GI & Abdominal Exam: Soft. absent: Distended, Tenderness - Neurological Exam Neurological Exam: Alert, Awake, Oriented x3 Plan - Assessment of Findings&Treatment Plan Patient is a 53 yo male with ESRD on MWF who presented with SOB. MARKETING INFORMATION COORDINATOR called for respiratory distress, and patient appeared fluid overloaded. Plan: Stat CXR Stat Duoneb 1/2 inch nitro paste Stat Lasix 20 mg IVP Straight cath Stat BiPAP ICU consult- accepted and transferred Stat hemodialysis Type and cross- 2 units pRBC to be administered during HD Drs. Paulino and Matthew called and notified <Houston Zimmer - Last Filed: 09/28/18 21:37> Attending/Attestation - Attestation I have personally seen and examined this patient.: Yes I have fully participated in the care of the patient.: Yes I have reviewed all pertinent clinical information, including history, physical exam and plan: Yes Notes (Text): 09/28/18 21:36 This is a late entry. Patient was seen with Resident Dr. Killian at the time of MARKETING INFORMATION COORDINATOR and care was thoroughly discussed. Houston Zimmer D.O.
[2018-09-24] MEDS ORDERED: MethylPREDNISolone 40 mg Vial IVP STA (10:43)
--- NOTE | 2018-09-24 11:17 | RAD ---
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 FINDINGS: LUNGS: Extensive bilateral pulmonary opacity with a perihilar distribution. Concerning for pulmonary edema. Worse when compared to the prior examination. PLEURA: Possible small left pleural effusion. No right pleural effusion. No pneumothorax. CARDIOVASCULAR: No aortic atherosclerotic calcification present. Normal cardiac size. There is mild congestive change. OSSEOUS STRUCTURES: No significant abnormalities. VISUALIZED UPPER ABDOMEN: Normal. OTHER FINDINGS: None. IMPRESSION: Bilateral infiltrates suspicious for pulmonary edema. Possible small left pleural effusion.
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
[2018-09-24 14:49] LABS: % IRON SATURATION 7 (20-55); TOTAL IRON BINDING CAPACITY 222 ug/dL (250-450)
[2018-09-24 14:57] LABS: IRON 16 ug/dL (49-181)
[2018-09-24 15:19] LABS: % IRON SATURATION 7 (20-55); TOTAL IRON BINDING CAPACITY 222 ug/dL (250-450)
[2018-09-24 15:47] LABS: FOLATE 6.1 ng/mL
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
[2018-09-24] MEDS: Latanoprost 2.5 ml Opht Soln OU SCH (21:26)
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
[2018-09-25 06:47] LABS: HEMOGLOBIN 8.8 g/dL (12.0-18.0); MEAN CORPUSCULAR HEMOGLOBIN 28.2 pg (27.0-31.0); MEAN CORPUSCULAR HGB CONC 33.2 g/dL (33.0-37.0); MEAN PLATELET VOLUME 7.3 fL (7.2-11.7); RBC 3.11 Mil/uL (4.40-5.90); RED CELL DISTRIBUTION WIDTH 18.4 % (11.5-14.5); WHITE BLOOD COUNT 8.2 K/uL (4.8-10.8)
[2018-09-25 06:50] LABS: ALB/GLOB RATIO 1.7 (1.0-2.1); ALBUMIN 4.6 g/dL (3.5-5.0); ALT/SGPT < 6 U/L (21-72); AST/SGOT 16 U/L (17-59); BLOOD UREA NITROGEN 60 mg/dL (9-20); CALCIUM 10.1 mg/dl (8.6-10.4); GFR NON-AFRICAN AMERICAN 5
--- NOTE | 2018-09-25 09:48 | CP.PCM.PN ---
Subjective - Date & Time of Evaluation Date of Evaluation: 09/25/18 Time of Evaluation: 09:46 - Subjective Subjective: appears much better no more dyspnea K elevated- will repeat dialysis now Hg better- needs ESAs Objective - Vital Signs/Intake and Output Vital Signs (last 24 hours): Temp Pulse Resp BP Pulse Ox 97.7 F 84 16 142/84 98 09/25/18 08:00 09/25/18 09:00 09/25/18 09:00 09/25/18 08:34 09/25/18 09:00 Intake and Output: 09/25/18 09/25/18 06:59 18:59 Intake Total 170 0 Output Total 0 0 Balance 170 0 - Medications Medications: Current Medications Amlodipine Besylate (Norvasc) 10 mg PO DAILY [facility] Last Admin: 09/24/18 09:44 Dose: 10 mg Aspirin (Aspirin Chewable) 81 mg PO DAILY [facility] Last Admin: 09/24/18 09:44 Dose: 81 mg Calcium Acetate (Phoslo) 1,334 mg PO TIDCC [facility] Last Admin: 09/25/18 08:49 Dose: 1,334 mg Carvedilol (Coreg) 25 mg PO BID [facility] Last Admin: 09/24/18 17:44 Dose: 25 mg Cinacalcet (Sensipar) 30 mg PO ACD [facility] Last Admin: 09/24/18 17:45 Dose: 30 mg Epoetin Salvador (Procrit) 10,000 unit IV MWF [facility] Famotidine (Pepcid) 20 mg PO DAILY [facility] Last Admin: 09/24/18 09:43 Dose: 20 mg Latanoprost (Xalatan Opht) 0 ml OU HS [facility] Last Admin: 09/24/18 21:26 Dose: 2.5 ml Losartan Potassium (Cozaar) 50 mg PO DAILY [facility] Last Admin: 09/24/18 09:44 Dose: 50 mg - Labs Labs: 09/25/18 06:14 09/25/18 06:14 - Constitutional Appears: No Acute Distress, Chronically Ill - Head Exam Head Exam: ATRAUMATIC, NORMAL INSPECTION - Eye Exam Eye Exam: EOMI, Normal appearance - Neck Exam Neck Exam: Normal Inspection. absent: Tenderness - Respiratory Exam Respiratory Exam: Clear to Ausculation Bilateral, NORMAL BREATHING PATTERN - Cardiovascular Exam Cardiovascular Exam: REGULAR RHYTHM, +S1 - GI/Abdominal Exam GI & Abdominal Exam: Soft. absent: Tenderness - Extremities Exam Extremities Exam: Normal Inspection. absent: Tenderness - Neurological Exam Neurological Exam: Awake, CN II-XII Intact - Skin Skin Exam: Dry, Warm Assessment and Plan (1) Failed kidney transplant Status: Acute (2) Chronic anemia Status: Acute (3) ESRD (end stage renal disease) on dialysis Status: Acute (4) CHF (congestive heart failure) Status: Acute - Assessment and Plan (Free Text) Plan: dialysis now then MWF Adequate UF Add EPO
--- NOTE | 2018-09-25 10:23 | PN ---
DATE: 09/25/2018 SUBJECTIVE: I have known Shanna for many, many years. He comes to my office. He has been my patient. He went to the emergency room because I had sent him to the emergency room after talking with his mother. seen in the icu comfortable s/p HD no sob no cp no abd pain PHYSICAL EXAMINATION: VITAL SIGNS: He has 97.2 temperature, 77 pulse, 136/78 blood pressure, 16 respiratory rate, 100% O2 sat by nasal cannula. HEENT: Head is atraumatic, normocephalic. HEART: Regular rate. LUNGS: Decreased breath sounds. ABDOMEN: Soft, obese. EXTREMITIES: No edema. LABORATORY DATA: He has 135 sodium, potassium 5.6, BUN 60, creatinine 10, GFR is 5, sugar is 154. Lactic acid is 10.1. Total bilirubin is 1, AST is 16, ALT is less than 6, alk phos is 64, total protein 7.2. He has an 8.2 white count, 8.8 hemoglobin, 26.4 hematocrit with 183 platelets. ASSESSMENT AND PLAN: He is being seen by Dr. Castro,the kidney doctor and Dr. Schneider, the cell plasterer, has consulted. We will watch him closely. I am hoping to get him out of the intensive care unit soon. Get some physical therapy to see him and get him to the floor or telemetry in the next 24 hours. Jim Paulino DO MTDD
[2018-09-25] MEDS: Latanoprost 2.5 ml Opht Soln OU SCH (21:15)
[2018-09-26 03:28] VITALS: RESP 20
[2018-09-26 07:48] LABS: HEMOGLOBIN 9.6 g/dL (12.0-18.0); MEAN CELL VOLUME 85.7 fL (80.0-94.0); MEAN CORPUSCULAR HEMOGLOBIN 28.5 pg (27.0-31.0); MEAN CORPUSCULAR HGB CONC 33.3 g/dL (33.0-37.0); MEAN PLATELET VOLUME 7.2 fL (7.2-11.7); RBC 3.38 Mil/uL (4.40-5.90); RED CELL DISTRIBUTION WIDTH 18.3 % (11.5-14.5); WHITE BLOOD COUNT 10.2 K/uL (4.8-10.8)
[2018-09-26 08:13] LABS: ALB/GLOB RATIO 1.4 (1.0-2.1); ALBUMIN 4.3 g/dL (3.5-5.0); CALCIUM 9.7 mg/dl (8.6-10.4)
[2018-09-26] MEDS: (Novolin R) Insulin Human Regular 100 units/ml vial SC SCH ×3 (12:26→21:37)
--- NOTE | 2018-09-26 19:34 | CARD ---
APPROVED REPORT Date of service: 09/23/2018 EKG Measurement Heart [id number] <Conclusion> Normal sinus rhythm Possible Left atrial enlargement Left axis deviation Possible Anterior infarct, age undetermined Abnormal ECG
--- NOTE | 2018-09-26 20:21 | PN ---
DATE: 09/26/2018 SUBJECTIVE: He is doing much better. He is breathing better. He is eating better. He is in good spirits. His mother who takes care of him usually is now in a rehab facility herself down in [place]. The plan is going to be to get him home on Thursday because he has homemakers that take care of him at home. I need Physical Therapy to let me know what he can do if he needs to go to rehab or if I could send him home tomorrow. So far, there is no physical therapy treatment note. So, I will order physical therapy again. He also needs to get out of bed to chair. I will ask case management to help me to get him home tomorrow, Thursday. Also, his homemaker is involved, he said he has two of them, so he is not left alone and they can get outpatient dialysis schedule up and running again. I instructed him not to drink so much water as to put him into fluid overload. He understands that, I believe. Right now, he looks very good, blood sugar is good. PHYSICAL EXAMINATION: GENERAL: He is alert. He is back to his baseline mentally. VITAL SIGNS: Temp 98.1, 68 pulse, 127/77 blood pressure, 20 respiratory rate, 100% O2 sat on room air. HEENT: His head is atraumatic, normocephalic. HEART: Regular rate. LUNGS: Decreased breath sounds. ABDOMEN: Soft. EXTREMITIES: No edema, which is good. LABORATORY DATA: He has 10.2 white count, 9.6 hemoglobin, 28.9 hematocrit with 212 platelets. He has a 135 sodium, potassium is 4.9, BUN 72, creatinine 9.3. His sugar is 129, total bili is 0.5. AST is 18, ALT is 7, alk phos 53, total protein 7.3. B12 is 720, folate is 6.2. ASSESSMENT AND PLAN: He is still fluid overload. Hopefully, we will get him home tomorrow. We will see if Aircraft Maintenance Supervisor is involved and physical therapy. Jim Paulino DO [facility] # [id number]
--- NOTE | 2018-09-26 21:06 | CP.PCM.PN ---
Subjective - Date & Time of Evaluation Date of Evaluation: 09/25/18 Time of Evaluation: 11:00 - Subjective Subjective: much improved post dialysis no sob no chest pain Objective - Vital Signs/Intake and Output Vital Signs (last 24 hours): Temp Pulse Resp BP Pulse Ox 97.6 F 64 20 124/70 98 09/26/18 16:21 09/26/18 20:43 09/26/18 16:21 09/26/18 18:06 09/26/18 16:21 Intake and Output: 09/26/18 09/27/18 18:59 06:59 Intake Total 280 Output Total 800 Balance -520 - Medications Medications: Current Medications Amlodipine Besylate (Norvasc) 10 mg PO DAILY [facility] Last Admin: 09/26/18 10:22 Dose: 10 mg Aspirin (Aspirin Chewable) 81 mg PO DAILY [facility] Last Admin: 09/26/18 10:22 Dose: 81 mg Calcium Acetate (Phoslo) 1,334 mg PO TIDCC [facility] Last Admin: 09/26/18 18:06 Dose: 1,334 mg Carvedilol (Coreg) 25 mg PO BID [facility] Last Admin: 09/26/18 18:06 Dose: 25 mg Cinacalcet (Sensipar) 30 mg PO ACD [facility] Last Admin: 09/25/18 18:52 Dose: 30 mg Epoetin Salvador (Procrit) 10,000 unit IV MWF [facility] Famotidine (Pepcid) 20 mg PO DAILY [facility] Last Admin: 09/26/18 10:22 Dose: 20 mg Insulin Human Regular (Novolin R) 0 unit SC [facility]; Protocol Last Admin: 09/26/18 17:53 Dose: Not Given Latanoprost (Xalatan Opht) 0 ml OU HS [facility] Last Admin: 09/25/18 21:15 Dose: 2.5 ml Losartan Potassium (Cozaar) 50 mg PO DAILY [facility] Last Admin: 09/26/18 10:22 Dose: 50 mg - Labs Labs: 09/26/18 07:35 09/26/18 07:35 - Constitutional Appears: Non-toxic - Head Exam Head Exam: NORMAL INSPECTION - Eye Exam Eye Exam: absent: Scleral icterus - ENT Exam ENT Exam: Mucous Membranes Moist - Neck Exam Neck Exam: Full ROM - Respiratory Exam Respiratory Exam: Clear to Ausculation Bilateral - Cardiovascular Exam Cardiovascular Exam: REGULAR RHYTHM - GI/Abdominal Exam GI & Abdominal Exam: Soft. absent: Tenderness, Organomegaly - Extremities Exam Extremities Exam: absent: Pedal Edema - Neurological Exam Neurological Exam: Alert, Oriented x3 Assessment and Plan - Assessment and Plan (Free Text) Assessment: CHF ESRD Failed Transplant Plan: Cont meds Cont dialysis
--- NOTE | 2018-09-26 21:13 | CP.PCM.PN ---
Subjective - Date & Time of Evaluation Date of Evaluation: 09/25/18 Time of Evaluation: 12:00 - Subjective Subjective: doing ok breathing comfortably no chest pain Objective - Vital Signs/Intake and Output Vital Signs (last 24 hours): Temp Pulse Resp BP Pulse Ox 97.6 F 64 20 124/70 98 09/26/18 16:21 09/26/18 20:43 09/26/18 16:21 09/26/18 18:06 09/26/18 16:21 Intake and Output: 09/26/18 09/27/18 18:59 06:59 Intake Total 280 Output Total 800 Balance -520 - Medications Medications: Current Medications Amlodipine Besylate (Norvasc) 10 mg PO DAILY [facility] Last Admin: 09/26/18 10:22 Dose: 10 mg Aspirin (Aspirin Chewable) 81 mg PO DAILY [facility] Last Admin: 09/26/18 10:22 Dose: 81 mg Calcium Acetate (Phoslo) 1,334 mg PO TIDCC [facility] Last Admin: 09/26/18 18:06 Dose: 1,334 mg Carvedilol (Coreg) 25 mg PO BID [facility] Last Admin: 09/26/18 18:06 Dose: 25 mg Cinacalcet (Sensipar) 30 mg PO ACD [facility] Last Admin: 09/25/18 18:52 Dose: 30 mg Epoetin Salvador (Procrit) 10,000 unit IV MWF [facility] Famotidine (Pepcid) 20 mg PO DAILY [facility] Last Admin: 09/26/18 10:22 Dose: 20 mg Insulin Human Regular (Novolin R) 0 unit SC [facility]; Protocol Last Admin: 09/26/18 17:53 Dose: Not Given Latanoprost (Xalatan Opht) 0 ml OU HS [facility] Last Admin: 09/25/18 21:15 Dose: 2.5 ml Losartan Potassium (Cozaar) 50 mg PO DAILY [facility] Last Admin: 09/26/18 10:22 Dose: 50 mg - Labs Labs: 09/26/18 07:35 09/26/18 07:35 - Constitutional Appears: Non-toxic - Eye Exam Eye Exam: absent: Scleral icterus - ENT Exam ENT Exam: Mucous Membranes Moist - Neck Exam Neck Exam: Full ROM - Cardiovascular Exam Cardiovascular Exam: REGULAR RHYTHM - GI/Abdominal Exam GI & Abdominal Exam: Soft - Extremities Exam Extremities Exam: absent: Pedal Edema - Neurological Exam Neurological Exam: Alert, Oriented x3 Assessment and Plan - Assessment and Plan (Free Text) Assessment: CHF, compensated ESRD Failed renal transplant by hx Plan: ECHO Lexiscan when more stable
[2018-09-26] MEDS: Latanoprost 2.5 ml Opht Soln OU SCH (21:39)
[2018-09-27 07:26] LABS: HEMOGLOBIN 9.7 g/dL (12.0-18.0); MEAN CELL VOLUME 85.1 fL (80.0-94.0); MEAN CORPUSCULAR HEMOGLOBIN 28.4 pg (27.0-31.0); MEAN CORPUSCULAR HGB CONC 33.3 g/dL (33.0-37.0); MEAN PLATELET VOLUME 7.3 fL (7.2-11.7); RBC 3.41 Mil/uL (4.40-5.90); RED CELL DISTRIBUTION WIDTH 17.9 % (11.5-14.5); WHITE BLOOD COUNT 5.9 K/uL (4.8-10.8)
[2018-09-27] MEDS: (Novolin R) Insulin Human Regular 100 units/ml vial SC SCH ×2 (07:56→18:53)
[2018-09-27] MEDS ORDERED: Caffeine Citrated **INJ** 20 MG/ML IV ONE (07:59)
[2018-09-27 08:09] LABS: ALB/GLOB RATIO 1.5 (1.0-2.1); ALBUMIN 4.1 g/dL (3.5-5.0); CALCIUM 9.3 mg/dl (8.6-10.4)
[2018-09-27] MEDS ORDERED: EPOETIN ALFA 10,000 UNIT/ML ML IV SCH (09:00)
--- NOTE | 2018-09-27 11:44 | CP.PCM.PN ---
Subjective - Date & Time of Evaluation Date of Evaluation: 09/27/18 Time of Evaluation: 11:41 - Subjective Subjective: for stress test now feeling much better no more dyspnea, no CPs no n, v, HAs, fevers, chills Hg low- on EPO Objective - Vital Signs/Intake and Output Vital Signs (last 24 hours): Temp Pulse Resp BP Pulse Ox 97.7 F 20 L 20 124/75 100 09/27/18 07:00 09/27/18 07:00 09/27/18 07:00 09/27/18 07:00 09/27/18 07:00 - Medications Medications: Current Medications Amlodipine Besylate (Norvasc) 10 mg PO DAILY [facility] Last Admin: 09/26/18 10:22 Dose: 10 mg Aspirin (Aspirin Chewable) 81 mg PO DAILY [facility] Last Admin: 09/26/18 10:22 Dose: 81 mg Calcium Acetate (Phoslo) 1,334 mg PO TIDCC [facility] Last Admin: 09/26/18 18:06 Dose: 1,334 mg Carvedilol (Coreg) 25 mg PO BID [facility] Last Admin: 09/26/18 18:06 Dose: 25 mg Cinacalcet (Sensipar) 30 mg PO ACD [facility] Last Admin: 09/26/18 21:38 Dose: 30 mg Epoetin Salvador (Procrit) 10,000 unit IV MWF [facility] Famotidine (Pepcid) 20 mg PO DAILY [facility] Last Admin: 09/26/18 10:22 Dose: 20 mg Insulin Human Regular (Novolin R) 0 unit SC [facility]; Protocol Last Admin: 09/27/18 07:56 Dose: Not Given Latanoprost (Xalatan Opht) 0 ml OU HS [facility] Last Admin: 09/26/18 21:39 Dose: 2.5 ml Losartan Potassium (Cozaar) 50 mg PO DAILY [facility] Last Admin: 09/26/18 10:22 Dose: 50 mg - Labs Labs: 09/27/18 07:14 09/27/18 07:14 - Constitutional Appears: No Acute Distress, Chronically Ill - Head Exam Head Exam: ATRAUMATIC, NORMAL INSPECTION - Eye Exam Eye Exam: EOMI, Normal appearance - Neck Exam Neck Exam: Normal Inspection. absent: Tenderness - Respiratory Exam Respiratory Exam: Clear to Ausculation Bilateral, NORMAL BREATHING PATTERN - Cardiovascular Exam Cardiovascular Exam: REGULAR RHYTHM, +S1 - GI/Abdominal Exam GI & Abdominal Exam: Soft. absent: Tenderness - Extremities Exam Extremities Exam: Normal Inspection. absent: Tenderness - Neurological Exam Neurological Exam: Awake, CN II-XII Intact - Skin Skin Exam: Dry, Warm Assessment and Plan (1) Failed kidney transplant Status: Acute (2) Chronic anemia Status: Acute (3) ESRD (end stage renal disease) on dialysis Status: Acute (4) CHF (congestive heart failure) Status: Acute - Assessment and Plan (Free Text) Plan: continue aggressive UF with dialysis stress test- await results continue EPO, check Fe stores Same BP control- HTN controlled now
[2018-09-27] MEDS ORDERED: Ferric Sodium Gluconat Complex 62.5 mg/5 ml Vial IVPB SCH ×2 (13:00→18:30)
--- NOTE | 2018-09-27 13:58 | PCM.HF ---
Heart Failure Core Measure Beta-Anaya Prescribed: Carvedilol Angiotensin II Receptor Anaya Prescribed: Yes
[2018-09-27] MEDS ORDERED: Epoetin Alfa 10,000 unit/ml Dialysis IV SCH (15:15)
--- NOTE | 2018-09-27 18:37 | PN ---
DATE: 09/27/2018 LOCATION 659, bed A. SUBJECTIVE: This is a 53-year-old male seen initially for GI consultation on 09/26/2018 after repeated request from the admitting medical staff and the MD, as I was under the impression the patient may be seen by another transportation refrigeration technician as I was informed by the ICU staff. The patient initially seen on 09/26/2018 for GI consultation, then subsequently reexamined again today without reported active bleeding, chest pain or palpitation, but mild generalized tenderness and malaise, but improving gradually. The patient is scheduled for potential stress test today and no reported actual chest pain or palpitation, but mild nausea with dyspepsia. No chills or fever. The patient is still with low hemoglobin and hematocrit and today's lab results showed hemoglobin 9.7, hematocrit 29 post blood transfusion before with BUN of 98, creatinine 11.4, blood glucose level 127 with ALT of 8. PHYSICAL EXAMINATION: GENERAL: A 53-year-old male. VITAL SIGNS: Afebrile with pulse of 70, respiratory rate 20-22, blood pressure of 130/78. HEENT: Showed pale, dry oral mucoid membrane. Nonicteric sclerae. LUNGS: Few scattered crepitation. Decreased air entry at bases. HEART: Positive S1 and S1. ABDOMEN: Soft with mild generalized tenderness. No mass or organomegaly. No rebound tenderness or guarding. EXTREMITIES: Without significant edema, clubbing or cyanosis. IMPRESSION: 1. End-stage renal disease on hemodialysis. 2. Hypertension with congestive heart failure. 3. Re-exacerbation of peptic ulcer disease. 4. Anemia most likely secondary to above; however, the possibility of GI blood loss was raised. 5. Known history of chronic obstructive pulmonary disease, poorly controlled diabetes mellitus, hypothyroidism with a recurrent episode of pneumonia before. 6. Electrolyte imbalance secondary to above. SUGGESTIONS: 1. Continue current management. 2. Serum lipase, amylase level. 3. The patient may need endoscopic evaluation of the GI tract only when he is more stable clinically. Cancer markers. 4. Further recommendations to follow. Ten Benoit MD
[2018-09-27 18:51] VITALS: BP 122/69; PULSE 74; TEMP 98; O2SAT 99
--- NOTE | 2018-09-28 04:40 | DS ---
HOSPITAL COURSE: He is just sitting comfortably in bed. He did well after dialysis. He has had dialysis today. I am hoping we can discharge him home this afternoon. Case management to help with set up his homemakers, also physical therapy has to say he is okay to go home. I think he is comfortable, he is eating in his bed with no shortness of breath. He understands that he is not to drink too much of water like he did the last time, overflow of fluid inside him and he got over fluids. PHYSICAL EXAMINATION: VITAL SIGNS: Temperature 97.7, pulse 66, blood pressure 115/65, respiratory rate 20, O2 sat room air 98%. HEENT: Head is atraumatic, normocephalic. HEART: Regular rate. LUNGS: Decreased breath sounds, but clear. ABDOMEN: Soft. EXTREMITIES: No edema. GENERAL: He is doing quite well today. LABORATORY DATA: White count 10.2, hemoglobin 9.6, hematocrit 28.9 with platelets 212. Sodium 135, potassium 4.9, BUN 72, creatinine 9.3, blood sugars 111, calcium is 9.7, total bilirubin is 0.5. AST is 18, ALT is 7, alk phos 53, total protein is 7.3. I am hoping he is discharged today. He was seen by [facility]. He should be discharged to home. Case management should help to set up his homemakers at home, and outpatient dialysis should be set up with [facility]. He will go home on his medications. He has already aspirin, Coreg, Cozaar, Norvasc, Pepcid, PhosLo, Sensipar, and Xalatan. He was here with fluid overload due to increase in drinking, dialysis helped him. He should be discharged today after dialysis. Jim Paulino DO
--- NOTE | 2018-09-28 07:46 | CARD ---
APPROVED REPORT Date of service: 09/27/2018 Protocol: LEXISCAN Test Type: LEXISCAN STRESS Test Indications: SOB Medical History: CP Target HR: 166 bpm Resting ECG: NSR Resting Heart Rate: 62 bpm Resting Blood Pressure: 132/80mmHg submaximum (85%): 141 bpm TEST SUMMARY [id number]:02..1.062/.0. PREINFSNHYPERV.10:[id number]/80.0. INFUSIONDOSE 100:300.00.01.617048/80.0. GBSQHEVUI49:540.00.01.870593/80.0. PROCEDURE Pharmacologic stress testing was performed using 0.4mg per 5ml of regadenoson given intravenously over 7-10 seconds. POST EXERCISE Reason for Termination: Protocol Completed Target HR: No Max HR: 65 bpm 46% of Maximum Predicted HR: 166 bpm Exercise duration: 00:30 min:sec, 0 Stage Exercise capacity: 1.0METs Max Blood Pressure: 134/80mmHg Blood Pressure response to exercise: normal resting BP - appropriate response Heart Rate response to exercise: appropriate Chest Pain: No, none Angina index: 0 Arrhythmia: No, none ST Change: No, none Deviation: 0 mm INTERPRETATION Stress EKG Conclusion: NEGATIVE LEXISCAN STRESS TEST NORMAL BP RESPONSE TO LEXISCAN NUCLEAR STUDIES TO BE READ SEPARATELY EXAM: Myocardial Perfusion STRESS/REST Imaging Protocol The imaging protocol used to acquire images was Stress Tc-99m/rest Tc-99m 1 day Stress Spect myocardial perfusion imaging was performed in supine position 45 minutes following the injection of 13 mCi of Tc-99 Myoview. Gated Rest Spect was performed 42 minutes after intravenous 32.6 mCi Tc-99 Myoview injection. The images were gated to evaluate regional wall motion and calculate ventricular ejection fraction.Images were reconstructed using backfilter projection method in short horizontal and verticle long axis. Spect slices were generated. RESTING DATA [id number]/min ESV83.00mlMyocardial Gwld575.00g Av. Heart Rate68.00bpm EF56.00% STRESS DATA XMW731.80yfTK3.10L/min ESV83.00mlMyocardial Oxrm608.00g EF55.00% Regional WT score at stress:2.00 Regional WM score at stress:0.00 Summed WT score at stress:23.00 Av. Heart Rate70.00bpmSummed WM score at stress:2.00 LV Perf. Quant 17 Seg. SSS2.00 17 Seg. SRS0.00 17 Seg. SDS2.00 Stress Defect Extent (% LAD)0.00Rest Defect Extent (% LAD)0.00Rev. Defect Extent (% LAD)0.00 Stress Defect Extent (% LCX)18.80Rest Defect Extent (% LCX)0.00Rev. Defect Extent (% LCX)11.30 Stress Defect Extent (% RCA)0.00Rest Defect Extent (% RCA)0.00Rev. Defect Extent (% RCA)0.00 Stress Defect Extent (% RODRIGUEZ)4.10Rest Defect Extent (% RODRIGUEZ)0.00Rev. Defect Extent (% RODRIGUEZ)2.00 IMPRESSION Normal Myocardial Perfusion exercise stress study Left Ventricle LV Function:Left ventricle systolic function is normal. The Ejection Fraction is 55-60%. Metabolism/Perfusion There are no defects. There are no perfusion/metabolism defects. Conclusion 1. There is no stress-induced ischemia noted. 2. Left ventricle systolic function is normal. 3. The Ejection Fraction is 55-60%.
== END 2018-09-27 21:22 | disposition home health service (06) | DRG 291 ==
LOC: C.ER 17:26 → C.9E 19:26 → C.6T 20:18 → C.9I 09-24 10:59 → OBSVTOIN 09-24 17:08 → C.6T 09-26 01:54
PROVIDERS: ADMIT Family Medicine; ATTEND Family Medicine
PROC: 5A1D70Z Performance of Urinary Filtration, Intermittent, Less than 6 Hours Per Day (ICD-10-PCS; principal; 2018-09-24)
PROC: 30233N1 Transfusion of Nonautologous Red Blood Cells into Peripheral Vein, Percutaneous Approach (ICD-10-PCS; 2018-09-24)
PROC: 5A09457 Assistance with Respiratory Ventilation, 24-96 Consecutive Hours, Continuous Positive Airway Pressure (ICD-10-PCS; 2018-09-24)
PROC: 5A1D70Z Performance of Urinary Filtration, Intermittent, Less than 6 Hours Per Day (ICD-10-PCS; 2018-09-25)
PROC: 5A1D70Z Performance of Urinary Filtration, Intermittent, Less than 6 Hours Per Day (ICD-10-PCS; 2018-09-27)
DX: I13.2 Hypertensive heart and chronic kidney disease with heart failure and with stage 5 chronic kidney disease, or end stage renal disease (principal); D63.1 Anemia in chronic kidney disease; N18.6 End stage renal disease; T86.12 Kidney transplant failure; R06.02 Shortness of breath; E11.22 Type 2 diabetes mellitus with diabetic chronic kidney disease; E89.0 Postprocedural hypothyroidism; I50.9 Heart failure, unspecified; J44.9 Chronic obstructive pulmonary disease, unspecified; K27.9 Peptic ulcer, site unspecified, unspecified as acute or chronic, without hemorrhage or perforation; Y83.0 Surgical operation with transplant of whole organ as the cause of abnormal reaction of the patient, or of later complication, without mention of misadventure at the time of the procedure; M19.90 Unspecified osteoarthritis, unspecified site; H40.9 Unspecified glaucoma; Z91.11 Patient's noncompliance with dietary regimen; Z99.2 Dependence on renal dialysis; Z87.01 Personal history of pneumonia (recurrent); Z86.010 Personal history of colon polyps

== ENCOUNTER 2018-10-10 06:41 | Inpatient (IN) | payer MEDICARE, OTHER | END 2018-10-13 18:03 | disposition home or self-care (01) | DRG 291 | LOC: C.ER 06:41 → C.9E 08:32 → C.5S 08:59 | PROC: 5A09457 Assistance with Respiratory Ventilation, 24-96 Consecutive Hours, Continuous Positive Airway Pressure (ICD-10-PCS; principal; 2018-10-12) | PROC: 5A1D70Z Performance of Urinary Filtration, Intermittent, Less than 6 Hours Per Day (ICD-10-PCS; 2018-10-13) | DX: I13.2 Hypertensive heart and chronic kidney disease with heart failure and with stage 5 chronic kidney disease, or end stage renal disease (principal); N18.6 End stage renal disease; T86.12 Kidney transplant failure; I50.9 Heart failure, unspecified; J44.9 Chronic obstructive pulmonary disease, unspecified; E87.70 Fluid overload, unspecified; Z99.2 Dependence on renal dialysis ==